=== PATIENT | female | born 1965 | race African-American/Black ===

== ENCOUNTER 2020-06-09 08:24 | Emergency (ER) | payer MEDICARE ==
[~2020-06-09] VITALS: Ht 165.1 cm; Wt 113.4 kg
[2020-06-09] MEDS ORDERED: LISINOPRIL-HCT1 EACH (08:57)
[2020-06-09] MEDS ORDERED: NORVASC10 MG PO (08:58)
[2020-06-09] MEDS ORDERED: METFORMIN HCL500 MG PO (08:58)
[2020-06-09] MEDS ORDERED: ATORVASTATIN CA10 MG PO (08:58)
[2020-06-09] MEDS ORDERED: SINEMET 10-1001 EACH PO (08:58)
[2020-06-09] MEDS ORDERED: PANTOPRAZOLE SO40 MG PO (08:58)
--- NOTE | 2020-06-09 09:16 | Emergency Department Note ---
History of Present Illnes History of Present Illness Chief Complaint: COVID PUI History of Present Illness This is a 54 year old female Chief Complaint Comment Pt states productive cough x one month intermittantly. Pt states covid negative in January. Pt states yellow and "funky green" phlem with cough. Pt was bronchitis in April and was treated with monteiro t[place], zpak, medrol dose pack. Pt states the cough did clear x 2 wks, but continues to come back. No fevers, no sob, states drainage worse at night. Pt aaox4. ambulatory. no acute distress noted at triage time. N on smoker. Pt is on lisinopril for htn. Pt states her last chest xray was in September. . Historian: Patient Arrival Mode: Car Onset (how long ago): day(s) (3) Location: cough throat Quality: cough Radiation: Denies non-radiation, Denies back, Denies neck, Denies extremity, Denies abdomen, Denies periumbilical, Denies flank, Denies proximal, Denies distal, Denies other Severity: mild Onset quality: gradual Duration (how long): day(s) (3) Timing of current episode: intermittent Progression: waxing and waning Context: Denies recent illness, Denies recent surgery, Denies recent immobilization, Denies recent travel, Denies trauma/injury, Denies new medications, Denies hx of DVT/PE, Denies non-compliance w/ medications, Denies other Relieving factors: none Exacerbating factors: none Associated symptoms: Denies denies other symptoms, Denies confusion, Denies chest pain, Denies cough, Denies diaphoresis, Denies fever/chills, Denies headaches, Denies loss of appetite, Denies malaise, Denies nausea/vomiting, Denies rash, Denies seizure, Denies shortness of breath, Denies syncope, Denies weakness, Denies other Treatments prior to arrival: none Past Medical/Family History Physician Review I have reviewed the patient's past medical and family history. Any updates have been documented here. Past Medical History Recent Fever: No Clinical Suspicion of Infectio: Yes New/Unexplained Change in Ment: No Past Medical History: Hypertension, Diabetes, GERD, Hyperlipedemia, DVT/PE Other Medical History: morbid obesity Past Surgical History: Hysterectomy Social History Smoking Cessation: Unknown if ever smoked Counseling Performed: No Alcohol Use: None Physically hurt or threatened: No Other Any Pre-Existing Lines (PICC,: No Review of Systems Review of Systems Constitutional: Reports no symptoms EENTM: Reports no symptoms Cardiovascular: Reports no symptoms Respiratory: Reports as per HPI Gastrointestinal: Reports no symptoms Genitourinary: Reports no symptoms Musculoskeletal: Reports no symptoms Integumentary: Reports no symptoms Neurological: Reports no symptoms Psychological: Reports no symptoms Endocrine: Reports no symptoms Hematological/Lymphatic: Reports no symptoms Physical Exam Related Data Allergies: Coded Allergies: amoxicillin (Verified Allergy, Unknown, 06/09/20) morphine (Verified Allergy, Unknown, 06/09/20) Uncoded Allergies: GREEN COUGH MEDICINE (Allergy, Unknown, 06/09/20) Triage Vital Signs Vital Signs Date Time Temp Pulse Resp B/P (MAP) Pulse Ox O2 Delivery O2 Flow Rate FiO2 06/09/20 08:26 97.6 79 18 168/97 99 Room Air Vital signs reviewed: Yes Physical Exam CONSTITUTIONAL Constitutional: Present well-developed, Present well-nourished HENT HENT: Present normocephalic, Present atraumatic, Present oropharynx katharine r/moist, Present nose normal HENT L/R: Present left ext ear normal, Present right ext ear normal EYES Eyes: Reports PERRL, Reports conjunctivae normal NECK Neck: Present ROM normal PULMONARY Pulmonary: Present effort normal, Present rhonchi CARDIOVASCULAR Cardiovascular: Present regular rhythm, Present heart sounds normal, Present capillary refill normal, Present normal rate GASTROINTESTINAL Abdominal: Present soft, Present nontender, Present bowel sounds normal GENITOURINARY Genitourinary: Present exam deferred SKIN Skin: Present warm, Present dry MUSCULOSKELETAL Musculoskeletal: Present ROM normal NEUROLOGICAL Neurological: Present alert, Present oriented x 3, Present no gross motor or sensory deficits PSYCHOLOGICAL Psychological: Present mood/affect normal, Present judgement normal Results Imaging Imaging results reviewed: Yes Assessment & Plan Medical Decision Making MDM bronchitis reaction to med Reassessment Reassessment better Assessment & Plan Final Impression: (1) Acute bronchitis (2) Dyspnea Depart Disposition: HOME, SELF-CARE Last Vital Signs Date Time Temp Pulse Resp B/P (MAP) Pulse Ox O2 Delivery O2 Flow Rate FiO2 06/09/20 08:26 97.6 79 18 168/97 99 Room Air Home Meds Reported Medications Carbidopa/Levodopa (SINEMET 10-100 MG TABLET) 1 Each Tablet, 1 TAB PO TID, #90 TAB 06/09/20 Metformin Hcl (METFORMIN HCL) 500 Mg Tablet, 500 MG PO BID, #60 TAB 06/09/20 Atorvastatin Calcium (ATORVASTATIN CALCIUM) 10 Mg Tablet, 10 MG PO 2100, #30 TAB 06/09/20 Pantoprazole Sodium* (PROTONIX) 40 Mg Tablet.dr, 40 MG PO, TAB 06/09/20 Amlodipine Besylate (NORVASC) 10 Mg Tab, 10 MG PO DAILY, TAB 06/09/20 Lisinopril/Hydrochlorothiazide (LISINOPRIL-HCTZ 20-12.5 MG TAB) 1 Each Tablet 06/09/20 ELISA LAROSE MD Jun 09, 2020 09:16
[2020-06-09] MEDS ORDERED: METOPROLOL TART50 MG PO (09:20)
[2020-06-09] MEDS ORDERED: CEFDINIR300 MG PO (09:20)
[2020-06-09] MEDS ORDERED: PREDNISONE20 MG PO (09:22)
--- NOTE | 2020-06-09 09:23 | Diagnostic Imaging Report ---
EXAMINATION: CXR 1 VEW - HOPD INDICATION: Cough COMPARISON: None FINDINGS: LINES/TUBES:None LUNGS:The lungs are well-inflated. No focal consolidation or pulmonary edema. PLEURA:No pleural effusion or pneumothorax. MEDIASTINUM:The cardiomediastinal silhouette appears normal in size and shape. BONES/SOFT TISSUES:No acute osseous injury. ABDOMEN:No free air under the diaphragm. IMPRESSION: No focal pneumonia or pulmonary edema. Signed by: Randa Ozuna MD on 06/09/2020 9:20 AM
[2020-06-09] MEDS ORDERED: TESSALON PERLE100 MG PO (09:24)
--- OUTSIDE RECORDS SUMMARY | 2020-06-10 10:17 | XMS REPORT | Clinical Summary ---
Author Author THONG [facility] [employer] [facility] Address Unknown Phone Unavailable Care Team Providers Care Contract Post Office Clerk Name Role Phone Pcp, No PCP Unavailable Allergies Comments Active Allergy Reactions Severity Noted Date Tachycardia and SOB per pt Amoxicillin 06/02/2013 Other reaction(s): Rash Morphine Hives Low 07/25/2012 Shellfish Containing Anaphylaxis High 8 Products [place]eland Anaphylaxis High 08/24/2008 Medications End Date Status Medication Sig Dispensed Refills Start Date Active albuterol HFA (PROVENTIL Inhale 2 0 08/05 HFA) 90 mcg/actuation puffs by 8 inhaler mouth via inhaler. Active amLODIPine (NORVASC) 10 TAKE 1 TABLET 0 MG tablet BY MOUTH 8 DAILY Active atorvastatin (LIPITOR) 20 Take 20 mg by 0 05/25 MG tablet mouth. 8 Active azelastine (OPTIVAR) 0.05 1 drop. 0 07/26 % ophthalmic solution 7 Active buPROPion (WELLBUTRIN XL) Take 150 mg 0 02/23 150 MG 24 hr tablet by mouth. 8 Active carvedilol (COREG) 25 MG Take 1 tablet 0 03/22 tablet by mouth 8 twice a day. Active escitalopram oxalate Take 10 mg by 0 (LEXAPRO) 10 MG tablet mouth. 9 Active esomeprazole (NEXIUM) 40 TAKE 1 0 03/22 MG capsule CAPSULE BY 8 MOUTH EVERY MORNING (BEFORE BREAKFAST). Active gabapentin (NEURONTIN) Take 400 mg 0 01 400 MG capsule by mouth. 8 Active hydroCHLOROthiazide 12.5 mg = 1 0 (HYDRODIURIL) 12.5 MG tab, PO, 8 tablet Daily, 0 Refill(s) Active HYDROcodone-homatropine Take 2.5 mLs 0 (HYDROMET) 5-1.5 mg/5 mL by mouth. 8 syrup Active lisinopril (PRINIVIL) 20 Take 40 mg by 0 03/22 MG tablet mouth. 8 Active metFORMIN (GLUCOPHAGE XR) Take 500 mg 0 02/22 500 MG 24 hr tablet by mouth. 8 Active nitroglycerin (NITROSTAT) Place 0.4 mg 0 0.4 MG SL tablet under the 2 tongue. 03/17/2021 Active fluticasone propionate 1 spray by 15.8 mL 0 (FLONASE) 50 Nasal route 0 mcg/actuation nasal spray daily. Active ibuprofen (ADVIL,MOTRIN) Take 1 tablet 20 tablet 0 600 MG tablet (600 mg 0 total) by mouth every 6 (six) hours as needed for Pain for up to 20 doses. 03/22/2020 AZITHROmycin (ZITHROMAX) Take 1 tablet 6 tablet 0 250 MG tablet (250 mg 0 total) by mouth daily for 5 days Take first 2 tablets together, then 1 every day until finished.. Active Problems Not on file Encounters Care Team Description Date Type Specialty Nikhil Carpio MD Acute otalgia, bilateral (Primary Dx); Acute sinusitis, recurrence not specified, unspecified location 03/17/2020 Emergency Emergency Medicine 03/17/2020 Travel after 06/09/2019 Social History Date Tobacco Use Types Packs/Day Years Used Never Smoker Smokeless Tobacco: Never Used Alcohol Use Drinks/Week oz/Week Comments No Alcohol Habits Answer Date Recorded How often do you have a drink containing alcohol? Never 10/22/2018 How many drinks containing alcohol do you have on No t asked a typical day when you are drinking? How often do you have six or more drinks on one Not asked occasion? Sex Assigned at Date Recorded Not on file Industry Job Start Date Occupation Not on file Not on file Not on file Travel End Travel History Travel Start No recent travel history available. Last Filed Vital Signs Time Taken Vital Sign Reading 03/17/2020 11:50 AM CDT Blood Pressure 142/80 03/17/2020 11:50 AM CDT Pulse 82 03/17/2020 11:50 AM CDT Temperature 36.5 C (97.7 F) 03/17/2020 11:50 AM CDT Respiratory Rate 20 03/17/2020 11:50 AM CDT Oxygen Saturation 97% - Inhaled Oxygen - Concentration 03/17/2020 11:50 AM CDT Weight 131.5 kg (290 lb) 03/17/2020 11:50 AM CDT Height 162.6 cm (5' 4") 03/17/2020 11:50 AM CDT Body Mass Index 49.78 Plan of Treatment Not on file Results Not on fileafter 06/09/2019 Insurance Payer Benefit Subscriber ID Type Phone Address Plan / Group [facility] xxxxxxxxx MEDICARE MGD CARE MEDICARE HMO MEDICAID [place]ICAID xxxxxxxxx [place] [id number]
--- OUTSIDE RECORDS SUMMARY | 2020-06-10 10:17 | XMS REPORT | Continuity of Care Document ---
Author Author Bradley Metz [employer] Padmini, GEMINI [employer] Address Unknown Phone Unavailable Care Team Providers Care Sales Counselor Name Role Phone [facility] [employer] Unavailable Un available Problems Problem Status Onset Date Classification Date Reported Comments Source CHEST PAIN Active 03/22/2018 [facility] Discharge Diagnosis: Cough 08/18/2016 08/21/2016 [facility] SOB Active 1 10/18/2015 [facility] HYPERTENSIVE URGENCY Active 03/16/2012 [facility] CHEST PAIN/RIGHT SIDED NECK PAIN Active 11/28/2011 [facility] VOMITING Active 06/22/2011 [facility] Chest pain Inactive Problem 03/19/2012 [facility] Chest pain, unspecified 03/28/2018 [facility] Abdominal pain (finding) Active Problem 03/28/2018 [facility] Chest pain (finding) Active Problem 03/28/2018 [facility] Headache (finding) Active Problem 03/28/2018 [facility] Nausea and vomiting (disorder) Active Problem 02/2018 [facility] Peptic ulcer (disorder) Active Problem 03/28/2018 [facility] Abdominal pain Active Problem 03/19/2012 [facility] Headache Active Problem 03/19/2012 [facility] Nausea and vomiting Active Problem 03/19/2012 [facility] CHEST PAIN NOS Active [facility] HYPERTENSION NOS Active [facility] CHEST PAIN, UNSPECIFIED Active [facility] Medications Medication Details Route Status Patient Instructions Ordering Provider Order Date Source Tylenol Notes: Do not exceed 4 gm/day. (Same as: Tylenol) Inactive 03/25/2018 [facility] atorvastatin 80 mg oral tablet 80 mg = 1 tab, PO, Bedtime, # 30 tab, 0 Refill(s), Pharmacy: [id number] Active 03/25/2018 [facility] atorvastatin 80 mg oral tablet 80 mg = 1 tab, PO, Bedtime, 0 Refill(s) Inactive 03/25/2018 [facility] Sodium Chloride 0.9% IV 1,000 mL 1,000 mL, Rate: 100 ml/hr, Infuse over: 10 hr, Route: IVPB, Dosing Weight 129.545 kg, Total Volume: 1,000, Start date: 03/24/18 22:41:00 CDT, Duration: 30 day, Stop date: 04/23/18 22:40:00 CDT, 2.47, m2 No Longer Active 03/25/2018 [facility] Nitroglycerin Notes: (Same as: Nitroquick, Nitrostat) "Do Not Crush" Sublingual tablet No Longer Active 03/25/2018 [facility] remove patch Notes: Remove fro m 9 pm to 9 am daily for 12 hour nitrate free period. (Verify Patient has not taken Viagra, Cialis or Levitra in last 24 hours; if taken, hold NTG and notify MD.) Inactive 03/24/2018 [facility] Dextrose 50% Syringe 25 gm, 50 mL, Route: IVP, Drug Form: INJ, Dosing Weight 129.545, kg, PRN, PRN Blood Glucose Results, Start date: 03/24/18 13:01:00 CDT, Duration: 30 day, Stop date: 04/23/18 13:00:00 CDT No Longer Active 03/24/2018 [facility] Glucagon 1 mg, Route: IM, Drug form: PDR/INJ, PRN, Dosing Weight 129.545, kg, PRN Blood Glucose Results, Start date: 03/24/18 13:01:00 CDT, Duration: 30 day, Stop date: 04/23/18 13:00:00 CDT No Longer Active 03/24/2018 [facility] Insulin Lispro Notes: (Same as : Humalog ) Roll in palms of hands gently; Do not shake `vigorously. "Single Patient Use Only " WASTE: F/P - Black; E - Municipal Trash Bin Stable for 28 days at room temp erature. Expires in days from Date No Longer Active 03/24/2018 [facility] Prednisone Notes: Take with fo od. No Longer Active 03/24/2018 [facility] Diphenhydramine Notes: (Same a s: Benadryl) Inactive 03/24/2018 [facility] methylPREDNISolone SODium SUCCinate Notes: (Same as:Solu-MEDROL, A-Methapred) Inactive 03/24/2018 [facility] Famotidine Notes: (Same as: Pe pcid) Can be dilute in 5- 10cc NS IVP: Slow IV push over at least 2 minutes. Inactive 03/24/2018 [facility] quetiapine Notes: (Same as: SE ROquel) No Longer Active 03/24/2018 [facility] Lipitor Notes: Same as Lipitor Inactive 03/24/2018 [facility] remove patch 1 patch, Route: T OP, Drug form: ERFILM, Daily, Start date: 03/23/18 18:00:00 CDT, Duration: 30 day, Stop date: 04/21/18 18:00:00 CDT No Longer Active 03/23/2018 [facility] Lorazepam 0.5 mg, PO, Bedtime, 0 Refill(s) Active 03/23/2018 [facility] hydrochlorothiazide 12.5 mg oral tablet 12.5 mg = 1 tab, PO, Daily, 0 Refill(s) Active 03/23/2018 [facility] heparin 25,000 unit [12 unit/kg/hr] + Pr emix Diluent Sodium Chloride 0.45% 500 mL 500 mL, Rate: 20.31 ml/hr, Infuse over: 24.6 hr, Route: IV, Dosing Weight 84.64 kg, Total Volume: 500, Start date: 03/23/18 15:36:00 CDT, Stop date: 04/22/18 15:35:00 CDT, 1.98, m2 No Longer Active 03/23/2018 [facility] NS 1,000 mL 1,000 mL, Rate: 75 ml/hr, Infuse over: 13.3 hr, Route: IV, Dosing Weight 129.545 kg, Total Volume: 1,000, Start date: 03/23/18 15:26:00 CDT, Duration: 30 day, Stop date: 04/22/18 15:25:00 CDT, 2.47, m2 No Longer Active 03/23/2018 [facility] Heparin 30 unit/kg Bolus (Heparin Dosing Weight) Route: IVP, PRN, 2,500 unit, 2.5 mL, Drug form: INJ, PRN, Heparin Protocol, Start date: 03/23/18 15:21:00 CDT Stop date: 04/22/18 15:20:00 CDT, 30 day No Longer Active 03/23/2018 [facility] heparin additive 25,000 unit [12 unit/kg /hr] + Premix Diluent Dextrose 5% 500 mL 500 mL, Rate: 31.09 ml/hr, Infuse over: 16.1 hr, Route: IV, Dosing Weight 129.545 kg, Total Volume: 500 mL, Start date: 03/23/18 15:21:00 CDT, Duration: 30 day, Stop date: 04/22/18 15:20:00 CDT, 2.47, m2 Inactive 03/23/2018 [facility] Heparin - one time bolus for ACS 4,000 unit, 4 mL, Route: IVP, Drug form: INJ, ONCE, Dosing Weight 129.545, kg, Priority: STAT, Start date: 03/23/18 15:21:00 CDT, Stop date: 03/23/18 15:21:00 CDT Inactive 03/23/2018 [facility] Heparin 60 unit/kg Bolus (Heparin Dosing Weight) Route: IVP, PRN, 5,000 unit, 5 mL, Drug form: INJ, PRN, Heparin Protocol, Start date: 03/23/18 15:21:00 CDT Stop date: 04/22/18 15:20:00 CDT, 30 day No Longer Active 03/23/2018 [facility] Dilaudid Notes: Same as Dilaud id Inactive 03/23/2018 [facility] Dilaudid Notes: Same as Dilaud id Inactive 03/23/2018 [facility] Plavix 75 mg, Route: PO, Drug form: TAB, Daily, Dosing Weight 114.545, kg, Start date: 03/23/18 9:00:00 CDT, Duration: 30 day, Stop date: 04/21/18 9:00:00 CDT Inactive 03/23/2018 [facility] Bupropion Notes: (Do not crush ) (Same As: Wellbutrin SR) No Longer Active 03/23/2018 [facility] Saline Flush 0.9% Notes: (Same as: BD Posiflush) No Longer Active 03/23/2018 [facility] Lisinopril 5 mg, Route: PO, Dr ug form: TAB, Daily, Dosing Weight 114.545, kg, Start date: 03/23/18 9:00:00 CDT, Duration: 30 day, Stop date: 04/21/18 9:00:00 CDT No Longer Active 03/23/2018 [facility] Aspirin 81 MG Enteric Coated Tablet Notes: Do not crush or chew. (Same As: Ecotrin) No Longer Active 03/23/2018 [facility] Protonix Notes: Tablet should not be chewed or crushed. (Same as: Protonix) Inactive 03/23/2018 [facility] 24 HR Nitroglycerin 0.1 MG/HR Transderma l Patch [Nitro-Dur] 12.9545 mg, Route: TOP, Drug form: ERFIL M, Daily, Dosing Weight 129.545, kg, Start date: 03/23/18 9:00:00 CDT, Duration: 30 day, Stop date: 04/21/18 9:00:00 CDT Inactive 03/23/2018 [facility] Isosorbide Notes: (Same as:Imd ur) "Do Not Crush" Take on empty stomach/ full glass of water. Do not crush No Longer Active 03/23/2018 [facility] Esomeprazole 40 mg, Route: PO, Drug form: ECCAP, Daily, Dosing Weight 114.545, kg, Start date: 03/23/18 9:00:00 CDT, Duration: 30 day, Stop date: 04/21/18 9:00:00 CDT No Longer Active 03/23/2018 [facility] carvedilol Notes: Give with fo od. (Same As: Coreg) No Longer Active 03/23/2018 [facility] iodixanol Notes: (Same as: Vis ipaque). WASTE: F/P - Black; E - Municipal Trash Bin Inactive 03/23/2018 [facility] Iohexol Notes: (same as:Omnipa que 350). WASTE: F/P - Black; E - Municipal Trash Bin Inactive 03/23/2018 [facility] 24 HR Nitroglycerin 0.1 MG/HR Transderma l Patch [Nitro-Dur] 1 patch, Route: TOP, Drug form: ERFILM, Daily, Dosing Weight 129.545, kg, Priority: STAT, Start date: 03/23/18 5:37:00 CDT, Stop date: 04/21/18 6:00:00 CDT No Longer Active 03/23/2018 [facility] Dilaudid Notes: Same as Dilaud id Inactive 03/23/2018 [facility] Protonix Notes: Tablet should not be chewed or crushed. (Same as: Protonix) No Longer Active 03/23/2018 [facility] Potassium Chloride Notes: (Ramiro e as: K-Dur 20) "Do Not Crush" For patients unable to swallow tablet, dissolve in one half glass of water. Allow about 2 minutes for the tablets to disintegrate. Stir before giving to prepare slurry and administer. Please exclude Patients with feeding tube less than 14 Cambodian (Dobhoff, J-tube etc) and pediatric and patients. With food and full glass of water Inactive 03/23/2018 [facility] Plavix Notes: (Same As: Plavix) No Longer Active 03/23/2018 [facility] Lipitor Notes: Same as Lipitor No Longer Active 03/23/2018 [facility] Dilaudid Notes: Same as Dilaud id Inactive 03/23/2018 [facility] Lovenox Notes: (Same as: Loven ox) No Longer Active 03/23/2018 [facility] amLODIPine 10 mg oral tablet T JAMES 1 TABLET BY MOUTH DAILY Active 03/23/2018 [facility] buPROPion 150 mg/24 hours (XL) oral tabl et, extended release TAKE 1 TABLET BY MOUTH EVERY DAY IN THE MORNING Active 03/23/2018 [facility] carvedilol 25 mg oral tablet T JAMES 1 TABLET BY MOUTH TWICE A DAY. Active 03/23/2018 [facility] Esomeprazole 40 MG Enteric Coated Capsule TAKE 1 CAPSULE BY MOUTH EVERY MORNING (BEFORE BREAKFAST). Active 03/23/2018 [facility] isosorbide mononitrate 60 mg oral tablet , extended release TAKE 1 AND 1/2 TABLETS BY MOUTH ONCE A DAY. Active 03/23/2018 [facility] lisinopril 20 mg oral tablet T JAMES 2 TABLETS BY MOUTH DAILY. Active 03/23/2018 [facility] metFORMIN 500 mg oral tablet, extended release TAKE 1 TABLET BY MOUTH DAILY (WITH BREAKFAST). Active 03/23/2018 [facility] QUEtiapine 25 mg oral tablet T JAMES 2 TABLETS BY MOUTH AT BEDTIME No Longer Active 03/23/2018 [facility] Saline Flush 0.9% Notes: (Same as: BD Posiflush) No Longer Active 03/23/2018 [facility] Nitroglycerin Notes: (Same as: Nitroquick, Nitrostat) "Do Not Crush" Sublingual tablet No Longer Active 03/23/2018 [facility] Ondansetron Notes: (Same as: Vaibhav boyd) No Longer Active 03/23/2018 [facility] Zofran Notes: (Same as: Zofran ) MEDICATION WASTE Product Size: 4 mg Product Wasted: 0 mg Inactive 03/23/2018 [facility] Hydromorphone Notes: Same as D ilaudid Inactive 03/23/2018 [facility] Aspirin Notes: Take with food. Inactive 03/23/2018 [facility] Ondansetron 4 mg, Route: IVP, Drug form: INJ, ONCE, Dosing Weight 114.545, kg, Priority: STAT, Start date: 08/18/16 18:30:00 SERVICE NOW DEVELOPER, Stop date: 08/18/16 18:30:00 SERVICE NOW DEVELOPER Inactive 08/19/2016 [facility] Azithromycin 5 Day Dose Pack 250 mg oral tablet See Instructions, Take 2 tablets by mouth the first day then 1 tablet by mouth days 2-5., X 5 day, # 6 tab, 0 Refill(s) Active 08/19/2016 [facility] 200 ACTUAT Albuterol 0.09 MG/ACTUAT Mete red Dose Inhaler 2 puff, INHALATION, QID, # 34 gm, 0 Refill(s) Active 08/19/2016 [facility] Azithromycin Notes: Take 1 magan r before or 2 hours after meals. (Same As: Zithromax) Inactive 08/18/2016 [facility] 200 ACTUAT Albuterol 0.09 MG/ACTUAT Mete red Dose Inhaler Notes: (Same as: Yamileth) WASTE: Aero fernando - Return to Pharmacy Inactive 08/18/2016 [facility] Prednisone Notes: Take with fo od. Inactive 08/18/2016 [facility] Ketorolac 30 mg, Route: IVP, D rug form: INJ, ONCE, Dosing Weight 114.545, kg, Priority: STAT, Start date: 08/18/16 15:48:00 SERVICE NOW DEVELOPER, Stop date: 08/18/16 15:48:00 SERVICE NOW DEVELOPER Inactive 08/18/2016 [facility] Ondansetron 4 mg, Route: IVP, Drug form: INJ, ONCE, Dosing Weight 114.545, kg, Priority: STAT, Start date: 08/18/16 15:48:00 SERVICE NOW DEVELOPER, Stop date: 08/18/16 15:48:00 SERVICE NOW DEVELOPER Inactive 08/18/2016 [facility] Albuterol 0.833 MG/ML / Ipratropium Brom drea 0.167 MG/ML Inhalant Solution [DuoNeb] Notes: (Same as: Duoneb) Inactive 08/18/2016 [facility] Sodium Chloride 0.154 MEQ/ML Injectable Solution 1,000 mL, 2,000 ml/hr, Infuse Over: 30 minutes, Route: IV, 1,000, Drug form: INJ, ONCE, Priority: STAT, Dosing Weight 114.545 kg, Start date: 08/18/16 14:25:00 SERVICE NOW DEVELOPER, Duration: 1 doses or times, Stop date: 08/18/16 14:25:00 SERVICE NOW DEVELOPER Inactive 08/18/2016 [facility] Ibuprofen Notes: (Same as: Mot rin) "Do Not Crush" Take with food. Inactive 08/18/2016 [facility] pantoprazole 40 mg, 1 tab, Rou te: PO, Drug form: ECTAB, Before Dinner, Start date: 03/17/12 16:30:00, Duration: 30 day, Stop date: 04/15/12 16:30:00 PO No Longer Active [facility] 03/17/2012 [facility] acetaminophen-hydrocodone 325 mg-5 mg oral tablet 1 tab, PO, Q6H, PRN, 20 tab, Pain Score 1-3, Substitution Allowed, Maintenance, TAB PO Active [facility] 03/17/2012 [facility] ondansetron 4 mg, 2 mL, Route: IVP, Drug form: INJ, Q4H, PRN Nausea & Vomiting, Start date: 03/17/12 13:42:00, Stop date: 04/16/12 13:41:00 IVP No Longer Active [facility] 03/17/2012 [facility] Maalox 10 mL, Route: PO, Drug Form: SUSP, Q4H, PRN as needed for indigestion, Start date: 03/17/12 13:41:00, Duration: 30 day, Stop date: 04/16/12 13:40:00 PO No Longer Active [facility] 03/17/2012 [facility] Zofran ODT 4 mg oral tablet, disintegrating 4 mg, 1 tab, PO, BID, PRN, 10 tab, Nausea and Vomiting, Substitution Allowed, Dissolve tab under tongueDissolve tab under tongue PO Active [facility] 03/17/2012 [facility] furosemide 20 mg oral tablet 2 0 mg, 1 tab, PO, Daily, 30 tab, Substitution Allowed, TAB PO Active [facility] 03/17/2012 [facility] lisinopril 20 mg oral tablet 2 0 mg, 1 tab, PO, Daily, 30 tab, Substitution Allowed, TAB PO Active [facility] 03/17/2012 [facility] Protonix 40 mg oral enteric coated tablet 40 mg, 1 tab, PO, Daily, 30 tab, Substitution Allowed, ECTAB PO Active [facility] 03/17/2012 [facility] metoprolol 50 mg oral tablet 5 0 mg, 1 tab, PO, BID, 60 tab, Substitution Allowed, TAB PO Active [facility] 03/17/2012 [facility] pantoprazole 40 mg, 1 tab, Rou te: PO, Drug form: ECTAB, Daily, first dose today please, Start date: 03/17/12 10:00:00, Duration: 30 day, Stop date: 04/16/12 9:00:00 PO No Longer Active [facility] 03/17/2012 [facility] GI cocktail 30 ml, Route: PO, Drug Form: SUSP, ONCE, Routine, Start date: 03/17/12 9:54:00, Stop date: 03/17/12 9:54:00 PO No Longer Active [facility] 03/17/2012 [facility] furosemide 20 mg oral tablet 2 0 mg, 1 tab, Route: PO, Drug form: TAB, Daily, Start date: 03/17/12 9:00:00, Duration: 30 day, Stop date: 04/15/12 9:00:00 PO No Longer Active [facility] 03/17/2012 [facility] hydrALAZINE 50 mg, 1 tab, Rout e: PO, Drug form: TAB, TID, Start date: 03/17/12 9:00:00, Duration: 30 day, Stop date: 04/15/12 17:00:00 PO No Longer Active [facility] 03/17/2012 [facility] metoprolol tartrate 50 mg, 1 t ab, Route: PO, Drug form: TAB, Q12H, Start date: 03/17/12 9:00:00, Duration: 30 day, Stop date: 04/15/12 21:00:00 PO No Longer Active [facility] 03/17/2012 [facility] Senokot S oral tablet 2 tab, R oute: PO, Drug Form: TAB, BID, Start date: 03/17/12 9:00:00, Duration: 30 day, Stop date: 04/15/12 17:00:00 PO No Longer Active [facility] 03/17/2012 [facility] lisinopril 20 mg, 1 tab, Route : PO, Drug form: TAB, Daily, Start date: 03/17/12 9:00:00, Duration: 30 day, Stop date: 04/15/12 9:00:00 PO No Longer Active [facility] 03/17/2012 [facility] Dilaudid 1 mg, 0.5 mL, Route: IV, Drug form: INJ, Q4H, PRN Pain, Start date: 03/17/12 1:45:00, Duration: 30 day, Stop date: 04/16/12 1:44:00, pain 7 - 9 IV No Longer Active [facility] 03/17/2012 [facility] acetaminophen 650 mg, 2 tab, R oute: PO, Drug form: TAB, Q4H, PRN Pain/Fever, Start date: 03/17/12 1:36:00, Duration: 30 day, Stop date: 04/16/12 1:35:00 PO No Longer Active [facility] 03/17/2012 [facility] acetaminophen-hydrocodone 325 mg-5 mg oral tablet 1 tab, Route: PO, Drug Form: TAB, Q4H, PRN Pain Score 1-3, Start date: 03/17/12 1:36:00, Duration: 30 day, Stop date: 04/16/12 1:35:00 PO No Longer Active [facility] 03/17/2012 [facility] ondansetron 4 mg, 2 mL, Route: IVP, Drug form: INJ, Q6H, PRN Nausea & Vomiting, Start date: 03/17/12 1:36:00, Duration: 30 day, Stop date: 04/16/12 1:35:00 IVP No Longer Active [facility] 03/17/2012 [facility] nitroglycerin 2% topical ointment 1 inch, Route: TOP, ONCE, STAT, Start date: 03/16/12 18:58:00, Stop date: 03/16/12 18:58:00 TOP No Longer Active [facility] 03/16 [facility] Dilaudid 1 mg, 0.5 mL, Route: IV, Drug form: INJ, ONCE, Start date: 03/16/12 18:13:00, Stop date: 03/16/12 18:13:00 IV No Longer Active [facility] 03/16/2012 [facility] nitroglycerin 0.4 mg, 1 tab, R oute: SL, Drug form: TAB, Q5Min, PRN Chest Pain, Priority: STAT, Start date: 03/16/12 17:49:00, Duration: 3 doses or times, Stop date: Limited # of times SL No Longer Active [facility] 03/16/2012 [facility] enalapril 40 mg, 2 tab, Route: PO, Drug form: TAB, ONCE, Start date: 03/16/12 17:46:00, Stop date: 03/16/12 17:46:00 PO No Longer Active [facility] 03/16/2012 [facility] hydrALAZINE 50 mg oral tablet 100 mg, 2 tab, Route: PO, Drug form: TAB, ONCE, Start date: 03/16/12 17:46:00, Stop date: 03/16/12 17:46:00 PO No Longer Active [facility] 03/16/2012 [facility] Benadryl 25 mg, 0.5 mL, Route: IVP, Drug form: INJ, ONCE, Priority: STAT, Start date: 03/16/12 17:29:00, Stop date: 03/16/12 17:29:00 IVP No Longer Active [facility] 03/16/2012 [facility] Cardene 40 mg in NS 200 ml IV 40 mg 40 mg, 200 mL, Rate: Titrate to MAP of 120, Route: IV, Total Volume: 200 mL, Duration: 30 day, Stop date: 04/15/12 16:22:00, Replace Every: 24 hr IV No Longer Active [facility] 03/16/2012 [facility] Dilaudid 1 mg, 0.5 mL, Route: IV, Drug form: INJ, ONCE, Start date: 03/16/12 16:22:00, Stop date: 03/16/12 16:22:00 IV No Longer Active [facility] 03/16/2012 [facility] metoprolol tartrate 50 mg, 1 t ab, Route: PO, Drug form: TAB, ONCE, Priority: STAT, Start date: 03/16/12 16:21:00, Stop date: 03/16/12 16:21:00 PO No Longer Active [facility] 03/16/2012 [facility] clonidine 0.1 mg, 1 tab, Route : PO, Drug form: TAB, ONCE, Priority: STAT, Start date: 03/16/12 16:21:00, Stop date: 03/16/12 16:21:00 PO No Longer Active [facility] 03/16/2012 [facility] Zofran 4 mg, 2 mL, Route: IVP, Drug form: INJ, ONCE, Priority: STAT, Start date: 03/16/12 16:21:00, Stop date: 03/16/12 16:21:00 IVP No Longer Active [facility] 03/16 [facility] Toradol 10 mg oral tablet 10 m g, 1 tab, Route: PO, Drug form: TAB, Q6H, PRN Pain, Start date: 11/29/11 9:16:00, Duration: 2 day, Stop date: 12/01/11 9:15:00 PO No Longer Active [facility] 11/29/2011 [facility] hydrALAZINE 50 mg oral tablet 50 mg, 2 tab, Route: PO, Drug form: TAB, TID, Start date: 11/29/11 9:00:00, Duration: 30 day, Stop date: 12/28/11 17:00:00 PO No Longer Active [facility] 11/29/2011 [facility] enalapril 20 mg, 1 tab, Route: PO, Drug form: TAB, Daily, Start date: 11/29/11 9:00:00, Duration: 30 day, Stop date: 12/28/11 9:00:00 PO No Longer Active [facility] 11/29/2011 [facility] Protonix 40 mg, 1 tab, Route: PO, Drug form: ECTAB, BID, Start date: 11/29/11 9:00:00, Duration: 30 day, Stop date: 12/28/11 17:00:00 PO No Longer Active [facility] 11/28 [facility] Lasix 20 mg, 1 tab, Route: PO, Drug form: TAB, Daily, Start date: 11/29/11 9:00:00, Duration: 30 day, Stop date: 12/28/11 9:00:00 PO No Longer Active [facility] 11/28 [facility] metoprolol 50 mg, PO, BID, Sub stitution Allowed PO Active 11/29/2011 [facility] hydrALAZINE 50 mg, PO, TID, Hogan bstitution Allowed PO Active 11/29/2011 [facility] furosemide 20 mg oral tablet P O, Daily, Substitution Allowed PO Active 11/29/2011 [facility] enalapril 20 mg oral tablet 40 mg, 2 tab, PO, Daily, Substitution Allowed PO No Longer Active 11/29/2011 [facility] clonidine 0.1 mg oral tablet 0 .1 mg, 1 tab, PO, TID, Substitution Allowed PO Active 11/29/2011 [facility] Bactrim DS 1 tablet, PO, Q12H, Substitution Allowed, Maintenance PO No Longer Active 11/29/2011 [facility] pantoprazole 40 mg, PO, Daily, 30 tab, Substitution Allowed, bidbid PO Active 11/29/2011 [facility] Tylenol 650 mg, 2 tab, Route: PO, Drug form: TAB, Q4H, PRN Pain, Start date: 11/29/11 1:21:00, Duration: 30 day, Stop date: 12/29/11 1:20:00 PO No Longer Active Neyou 11/29/2011 [facility] clonidine 0.1 mg oral tablet 0 .1 mg, 1 tab, Route: PO, Drug form: TAB, TID, Start date: 11/29/11 0:00:00, Duration: 30 day, Stop date: 12/28/11 16:00:00 PO No Longer Active Neyou 11/29/2011 [facility] nter nitroglycerin 2% ointment 0.5 inch, Route: TOP, Drug Form: OINT, Q6H, Start date: 11/29/11 0:00:00, Duration: 30 day, Stop date: 12/28/11 18:00:00 TOP No Longer Active [place] 11/29/2011 [facility]ter metoprolol 50 mg, 1 tab, Route : PO, Drug form: TAB, Q12H, Start date: 11/28/11 21:00:00, Duration: 30 day, Stop date: 12/28/11 9:00:00 PO No Longer Active Neyou 11/29/2011 [facility] morphine Sulfate 2 mg, Route: IVP, ONCE, PRN Pain, Start date: 11/28/11 20:43:00, Stop date: 12/28/11 19:42:00 IVP No Longer Active Maria 11/29/2011 [facility] Bactrim DS 1 tab, Route: PO, D rug Form: TAB, [id number], Start date: 11/28/11 20:00:00, Duration: 1 day, Stop date: 11/29/11 8:00:00 PO No Longer Active Neyou 11/28 [facility] Phenergan 25 mg, 1 tab, Route: PO, Drug form: TAB, Q4H, PRN Allergic reaction, Start date: 11/28/11 19:55:00, Duration: 30 day, Stop date: 12/28/11 19:54:00 PO No Longer Active Neyou 11/29/2011 [facility] clonidine 0.1 mg, 1 tab, Route : PO, Drug form: TAB, ONCE, Priority: STAT, Start date: 11/28/11 18:34:00, Stop date: 11/28/11 18:34:00 PO No Longer Active [facility] 11/29/2011 [facility] hydrALAZINE 50 mg oral tablet 50 mg, 2 tab, Route: PO, Drug form: TAB, ONCE, Start date: 11/28/11 18:34:00, Stop date: 11/28/11 18:34:00 PO No Longer Active [facility] 11/29/2011 [facility] metoprolol 100 mg, 2 tab, Rout e: PO, Drug form: TAB, ONCE, Start date: 11/28/11 18:34:00, Stop date: 11/28/11 18:34:00 PO No Longer Active [facility] 11/29/2011 [facility] diphenhydrAMINE 25 mg, Route: IVP, ONCE, Priority: STAT, Start date: 11/28/11 17:32:00, Stop date: 11/28/11 17:32:00 IVP No Longer Active 11/28/2011 [facility] Benadryl 25 mg, Route: IVP, ON CE, Priority: STAT, Start date: 11/28/11 17:30:00, Stop date: 11/28/11 17:30:00 IVP No Longer Active 11/28/2011 [facility] ondansetron 4 mg, Route: IVP, Drug form: INJ, ONCE, Priority: STAT, Start date: 11/28/11 17:12:00, Stop date: 11/28/11 17:12:00 IVP No Longer Active 11/28/[address] [place] [address] morphine Sulfate 4 mg, Route: IVP, ONCE, Priority: STAT, Start date: 11/28/11 17:12:00, Stop date: 11/28/11 17:12:00 IVP No Longer Active 11/28/2011 [facility] nitroglycerin 0.4 mg, 1 tab, R oute: SL, Drug form: TAB, Q5Min, PRN Chest Pain, (Hold if SBP < = 90 mmHg or if < = 100mmHg with symptomatic dizziness), Start date: 11/28/11 15:18:00, Duration: 3 doses or times, Stop date: 12/28/11 15:17:00 SL No Longer Active Vu 11/28/2011 [facility] aspirin 325 mg tablet 325 mg, 1 tab, Route: PO, Drug form: TAB, ONCE, Priority: STAT, Start date: 11/28/11 15:18:00, Stop date: 11/28/11 15:18:00 PO No Longer Active Vu 11/28/2011 [facility] Vicodin 5/500 oral tablet 1 ta b, PO, Q4H, PRN, 15 tab, for pain, Substitution Allowed, Maintenance, TAB PO Active Maria 06/23/2011 [facility] hydromorphone 1 mg, Route: IVP , ONCE, Priority: STAT, Start date: 06/22/11 18:30:00, Stop date: 06/22/11 18:30:00 IVP No Longer Active Gabriel 06/22/2011 [facility] Reglan 10 mg, 2 mL, Route: IV, Drug form: INJ, ONCE, Start date: 06/22/11 18:22:00, Stop date: 06/22/11 18:22:00 IV No Longer Active Maxsukhdev 06/22/2011 [facility] GI cocktail 40 mL, Route: PO, Drug Form: SUSP, ONCE, STAT, Start date: 06/22/11 18:22:00, Stop date: 06/22/11 18:22:00 PO No Longer Active Akmitul 06/22/2011 [facility] hydrALAZINE 10 mg, 0.5 mL, Rou te: IVP, Drug form: INJ, ONCE, Priority: STAT, Start date: 06/22/11 18:21:00, Stop date: 06/22/11 18:21:00 IVP Active [place] [facility] Dilaudid 0.5 mg, 0.25 mL, Rout e: IV, Drug form: INJ, ONCE, Priority: STAT, Start date: 06/22/11 17:01:00, Stop date: 06/22/11 17:01:00 IV No Longer Active Aksukhdev 06/22/2011 [facility] Sodium Chloride 0.9% (Bolus) IV 1,000 mL 1,000 mL, Rate: 1,000 ml/hr, Infuse over: 1 hr, Route: IV, Total Volume: 1,000, Bolus Dose, Priority: STAT, Start date: 06/22/11 14:19:00, Duration: 1 doses or times, Stop date: 06/22/11 15:18:00 IV No Longer Active [facility] 06/22/2011 [facility] Dilaudid 1 mg, 0.5 mL, Route: IV, Drug form: INJ, ONCE, Priority: STAT, Start date: 06/22/11 14:19:00, Stop date: 06/22/11 14:19:00 IV No Longer Active [facility] ondansetron 8 mg, 4 mL, Route: IVP, Drug form: INJ, ONCE, Priority: STAT, Start date: 06/22/11 14:19:00, Stop date: 06/22/11 14:19:00 IVP No Longer Active [facility] 06/22/2011 [facility] morphine Sulfate 8 mg, Route: IVP, ONCE, Priority: STAT, Start date: 06/22/11 14:18:00, Stop date: 06/22/11 14:18:00 IVP No Longer Active [facility] 06/22/2011 [facility] Allergies, Adverse Reactions, Alerts Substance Category Reaction Severity Reaction type Status Date Reported Comments Source morphine Assertion hives Mild Drug allergy Active 11/22/2011 [facility] amoxicillin Assertion Drug allergy Active [facility] Food Shellfish Assertion Drug allergy Active [facility] Food Strawberries Assertion Drug allergy Active [facility] Immunizations No Data Provided for This Section Results Order Name Results Value Reference Range Date Interpretation Comments Source HEMATOLOGY PTT 63.5 22.9 - 35.8 03/24/2018 [facility] CHEM PANEL eGFR 101 03/24/2018 Result Comment: The eGFR is calculated using the CKD-EPI formula. In most young, healthy individuals the eGFR will be >90 mL/min/1.73m2. The eGFR declines with age. An eGFR of 60-89 may be normal in some populations, particularly the elderly, for whom the CKD-EPI formula has not been extensively validated. Use of the eGFR is not recommended in the following populations:

Individuals with unstable creatinine concentrations, including patients and those with serious co-morbid conditions.

Patients with extremes in muscle mass or diet.

The data above are obtained from the National Kidney Disease Education Program (NKDEP) which additionally recommends that when the eGFR is used in patients with extremes of body mass index for purposes of drug dosing, the eGFR should be multiplied by the estimated BMI. [facility] CHEM PANEL B/C Ratio 19 6 - 25 03/24/2018 [facility] CHEM PANEL Globulin 4.2 2.7 - 4.2 03/24/2018 [facility] CHEM PANEL A/G Ratio 0.7 0.7 - 1.6 03/24/2018 [facility] CHEM PANEL Bili Total 0.4 0.2 - 1.3 03/24/2018 [facility] CHEM PANEL AGAP 11.9 10.0 - 20.0 03/24/2018 [facility] CHEM PANEL Alk Phos 106 39 - 136 03/24/2018 [facility] CHEM PANEL ALT 25 0 - 65 03/24/2018 [facility] CHEM PANEL AST 14 0 - 37 03/24/2018 [facility] CHEM PANEL BUN 15 7 - 22 03/24/2018 [facility] CHEM PANEL Glucose Lvl 119 70 - 99 03/24/2018 [facility] CHEM PANEL Creatinine Lvl 0.77 0.50 - 1.40 03/24/2018 [facility] CHEM PANEL Potassium Lvl 3.9 3.5 - 5.1 03/24/2018 [facility] CHEM PANEL Sodium Lvl 138 135 - 145 03/24/2018 [facility] CHEM PANEL Chloride Lvl 104 95 - 109 03/24/2018 [facility] CHEM PANEL Albumin Lvl 2.9 3.5 - 5.0 03/24/2018 [facility] CHEM PANEL Calcium Lvl 8.1 8.5 - 10.5 03/24/2018 [facility] CHEM PANEL CO2 26 24 - 32 03/24/2018 [facility] CHEM PANEL Total Protein 7.1 6.4 - 8.4 03/24/2018 [facility] HEMATOLOGY Monocytes # 0.6 0.0 - 0.8 03/24/2018 [facility] HEMATOLOGY Lymphocytes # 2.8 1.0 - 5.5 03/24/2018 [facility] HEMATOLOGY Monocytes 7.0 2.0 - 12.0 03/24/2018 [facility] HEMATOLOGY Basophils 0.8 0.0 - 1.0 03/24/2018 [facility] HEMATOLOGY Eosinophils 4.1 0.0 - 4.0 03/24/2018 [facility] HEMATOLOGY Basophils # 0.1 0.0 - 0.2 03/24/2018 [facility] HEMATOLOGY Eosinophils # 0.3 0.0 - 0.5 03/24/2018 [facility] HEMATOLOGY Segs-Bands # 4.4 1.5 - 8.1 03/24/2018 [facility] HEMATOLOGY Lymphocytes 34.2 20.0 - 40.0 03/24/2018 [facility] HEMATOLOGY Segs 53.9 45.0 - 75.0 03/24/2018 [facility] HEMATOLOGY RDW 14.7 11.5 - 14.5 03/24/2018 [facility] HEMATOLOGY Platelet 248 133 - 450 03/24/2018 [facility] HEMATOLOGY MPV 8.8 7.4 - 10.4 03/24/2018 [facility] HEMATOLOGY Hct 38.5 36.0 - 48.0 03/24/2018 [facility] HEMATOLOGY MCH 26.6 27.0 - 31.0 03/24/2018 [facility] HEMATOLOGY MCV 81.5 80.0 - 98.0 03/24/2018 [facility] HEMATOLOGY MCHC 32.6 32.0 - 36.0 03/24/2018 [facility] HEMATOLOGY Hgb 12.6 12.0 - 16.0 03/24/2018 [facility] HEMATOLOGY RBC 4.72 4.20 - 5.40 03/24/2018 [facility] HEMATOLOGY WBC 8.2 3.7 - 10.4 03/24/2018 [facility] HEMATOLOGY PT 14.0 12.0 - 14.7 03/24/2018 [facility] HEMATOLOGY INR 1.08 0.85 - 1.17 03/24/2018 [facility] HEMATOLOGY PTT 34.2 22.9 - 35.8 03/24/2018 [facility] CARDIAC ENZYMES Troponin-I 0.04 0.00 - 0.40 03/23/2018 [facility] HEMATOLOGY Segs 58.2 45.0 - 75.0 03/23/2018 [facility] HEMATOLOGY Eosinophils # 0.3 0.0 - 0.5 03/23/2018 [facility] HEMATOLOGY Basophils # 0.1 0.0 - 0.2 03/23/2018 [facility] HEMATOLOGY Eosinophils 3.8 0.0 - 4.0 03/23/2018 [facility] HEMATOLOGY Basophils 1.2 0.0 - 1.0 03/23/2018 [facility] HEMATOLOGY Lymphocytes 31.4 20.0 - 40.0 03/23/2018 [facility] HEMATOLOGY Monocytes 5.4 2.0 - 12.0 03/23/2018 [facility] HEMATOLOGY Lymphocytes # 2.5 1.0 - 5.5 03/23/2018 [facility] HEMATOLOGY Monocytes # 0.4 0.0 - 0.8 03/23/2018 [facility] HEMATOLOGY Segs-Bands # 4.6 1.5 - 8.1 03/23/2018 [facility] HEMATOLOGY INR 1.11 0.85 - 1.17 03/23/2018 [facility] HEMATOLOGY PT 14.3 12.0 - 14.7 03/23/2018 [facility] HEMATOLOGY PTT 34.4 22.9 - 35.8 03/23/2018 [facility] HEMATOLOGY MCH 27.3 27.0 - 31.0 03/23/2018 [facility] HEMATOLOGY MCV 81.0 80.0 - 98.0 03/23/2018 [facility] HEMATOLOGY RDW 14.5 11.5 - 14.5 03/23/2018 [facility] HEMATOLOGY MCHC 33.6 32.0 - 36.0 03/23/2018 [facility] HEMATOLOGY Hgb 12.8 12.0 - 16.0 03/23/2018 [facility] HEMATOLOGY Hct 38.1 36.0 - 48.0 03/23/2018 [facility] HEMATOLOGY Platelet 277 133 - 450 03/23/2018 [facility] HEMATOLOGY MPV 8.6 7.4 - 10.4 03/23/2018 [facility] HEMATOLOGY RBC 4.70 4.20 - 5.40 03/23/2018 [facility] HEMATOLOGY WBC 7.9 3.7 - 10.4 03/23/2018 [facility] ELECTROLYTES Potassium Lvl 3.8 3.5 - 5.1 03/23/2018 [facility] CARDIAC ENZYMES Total CK 69 12 - 191 03/23/2018 [facility] CARDIAC ENZYMES Troponin-I <0.02 0.00 - 0.40 03/23/2018 [facility] CARDIAC ENZYMES Troponin-I <0.02 0.00 - 0.40 03/23/2018 [facility] CARDIAC ENZYMES Total CK 83 12 - 191 03/23/2018 [facility] CARDIAC ENZYMES CK MB Index <0.6 0.0 - 2.5 03/23/2018 [facility] CARDIAC ENZYMES CK MB <0.5 0.5 - 3.6 03/23/2018 [facility] ELECTROLYTES AGAP 14.2 10.0 - 20.0 03/23/2018 [facility] ELECTROLYTES eGFR 90 03/23/2018 Result Comment: The eGFR is calculated using the CKD-EPI formula. In most young, healthy individuals the eGFR will be >90 mL/min/1.73m2. The eGFR declines with age. An eGFR of 60-89 may be normal in some populations, particularly the elderly, for whom the CKD-EPI formula has not been extensively validated. Use of the eGFR is not recommended in the following populations:

Individuals with unstable creatinine concentrations, including patients and those with serious co-morbid conditions.

Patients with extremes in muscle mass or diet.

The data above are obtained from the National Kidney Disease Education Program (NKDEP) which additionally recommends that when the eGFR is used in patients with extremes of body mass index for purposes of drug dosing, the eGFR should be multiplied by the estimated BMI. [facility] ELECTROLYTES Glucose Lvl 131 70 - 99 03/23/2018 [facility] ELECTROLYTES BUN 13 7 - 22 03/23/2018 [facility] ELECTROLYTES Creatinine Lvl 0.8 5 0.50 - 1.40 03/23/2018 [facility] ELECTROLYTES Chloride Lvl 103 95 - 109 03/23/2018 [facility] ELECTROLYTES Sodium Lvl 142 135 - 145 03/23/2018 [facility] ELECTROLYTES Potassium Lvl 3.2 3.5 - 5.1 03/23/2018 [facility] ELECTROLYTES Calcium Lvl 8.9 8.5 - 10.5 03/23/2018 [facility] ELECTROLYTES CO2 28 24 - 32 03/23/2018 [facility] HEMATOLOGY Lymphocytes # 2.7 1.0 - 5.5 03/23/2018 [facility] HEMATOLOGY Segs-Bands # 5.3 1.5 - 8.1 03/23/2018 [facility] HEMATOLOGY Eosinophils 3.1 0.0 - 4.0 03/23/2018 [facility] HEMATOLOGY Monocytes 5.7 2.0 - 12.0 03/23/2018 [facility] HEMATOLOGY Eosinophils # 0.3 0.0 - 0.5 03/23/2018 [facility] HEMATOLOGY Monocytes # 0.5 0.0 - 0.8 03/23/2018 [facility] HEMATOLOGY Basophils # 0.1 0.0 - 0.2 03/23/2018 [facility] HEMATOLOGY Basophils 0.6 0.0 - 1.0 03/23/2018 [facility] HEMATOLOGY Lymphocytes 30.7 20.0 - 40.0 03/23/2018 [facility] HEMATOLOGY Segs 59.9 45.0 - 75.0 03/23/2018 [facility] HEMATOLOGY Hgb 12.4 12.0 - 16.0 03/23/2018 [facility] HEMATOLOGY WBC 8.8 3.7 - 10.4 03/23/2018 [facility] HEMATOLOGY RBC 4.56 4.20 - 5.40 03/23/2018 [facility] HEMATOLOGY Hct 36.8 36.0 - 48.0 03/23/2018 [facility] HEMATOLOGY MCV 80.7 80.0 - 98.0 03/23/2018 [facility] HEMATOLOGY MCHC 33.7 32.0 - 36.0 03/23/2018 [facility] HEMATOLOGY MCH 27.2 27.0 - 31.0 03/23/2018 [facility] HEMATOLOGY RDW 14.9 11.5 - 14.5 03/23/2018 [facility] HEMATOLOGY MPV 8.4 7.4 - 10.4 03/23/2018 [facility] HEMATOLOGY Platelet 266 133 - 450 03/23/2018 [facility] LIPIDS VLDL 57 03/23/2018 [facility] LIPIDS LDL (Calculated) 114 <=99 mg/dL 03/23/2018 [facility] LIPIDS Chol 204 <=199 mg/dL 03/23/2018 [facility] LIPIDS CHD Risk 6.18 3.90 - 5.80 03/23/2018 [facility] LIPIDS HDL 33 >=61 mg/dL 03/23/2018 [facility] LIPIDS Trig 285 <=149 mg/dL 03/23/2018 [facility] CHEM PANEL eGFR 86 03/23/2018 Result Comment: The eGFR is calculated using the CKD-EPI formula. In most young, healthy individuals the eGFR will be >90 mL/min/1.73m2. The eGFR declines with age. An eGFR of 60-89 may be normal in some populations, particularly the elderly, for whom the CKD-EPI formula has not been extensively validated. Use of the eGFR is not recommended in the following populations:

Individuals with unstable creatinine concentrations, including patients and those with serious co-morbid conditions.

Patients with extremes in muscle mass or diet.

The data above are obtained from the National Kidney Disease Education Program (NKDEP) which additionally recommends that when the eGFR is used in patients with extremes of body mass index for purposes of drug dosing, the eGFR should be multiplied by the estimated BMI. [facility] CHEM PANEL Sodium Lvl 138 135 - 145 03/23/2018 [facility] CHEM PANEL Glucose Lvl 150 70 - 99 03/23/2018 [facility] CHEM PANEL Calcium Lvl 9.4 8.5 - 10.5 03/23/2018 [facility] CHEM PANEL CO2 26 24 - 32 03/23/2018 [facility] CHEM PANEL Chloride Lvl 102 95 - 109 03/23/2018 [facility] CHEM PANEL BUN 12 7 - 22 03/23/2018 [facility] CHEM PANEL Creatinine Lvl 0.88 0.50 - 1.40 03/23/2018 [facility] CHEM PANEL AGAP 13.3 10.0 - 20.0 03/23/2018 [facility] CARDIAC ENZYMES Troponin-I <0.02 0.00 - 0.40 08/18/2016 [facility] CHEM PANEL Lipase Lvl 84 73 - 393 08/18/2016 [facility] CHEM PANEL AST 19 0 - 37 08/18/2016 [facility] CHEM PANEL Alk Phos 148 39 - 136 08/18/2016 [facility] CHEM PANEL ALT 36 0 - 65 08/18/2016 [facility] CHEM PANEL Total Protein 8.8 6.4 - 8.4 08/18/2016 [facility] CHEM PANEL Albumin Lvl 4.0 3.5 - 5.0 08/18/2016 [facility] CHEM PANEL Bili Indirect 0.2 0.0 - 1.0 08/18/2016 [facility] CHEM PANEL Globulin 4.8 2.7 - 4.2 08/18/2016 [facility] CHEM PANEL A/G Ratio 0.8 0.7 - 1.6 08/18/2016 [facility] CHEM PANEL Bili Total 0.3 0.2 - 1.3 08/18/2016 [facility] CHEM PANEL Bili Direct 0.1 0.0 - 0.3 08/18/2016 [facility] ELECTROLYTES AGAP 16.6 10.0 - 20.0 08/18/2016 [facility] ELECTROLYTES Creatinine Lvl 0.9 2 0.50 - 1.40 08/18/2016 [facility] ELECTROLYTES BUN 8 7 - 22 08/18/2016 [facility] ELECTROLYTES Chloride Lvl 100 95 - 109 08/18/2016 [facility] ELECTROLYTES Sodium Lvl 141 135 - 145 08/18/2016 [facility] ELECTROLYTES Potassium Lvl 3.6 3.5 - 5.1 08/18/2016 [facility] ELECTROLYTES Calcium Lvl 9.1 8.5 - 10.5 08/18/2016 [facility] ELECTROLYTES CO2 28 24 - 32 08/18/2016 [facility] ELECTROLYTES Glucose Lvl 114 70 - 99 08/18/2016 [facility] ELECTROLYTES eGFR 82 08/18/2016 Result Comment: The eGFR is calculated using the CKD-EPI formula. In most young, healthy individuals the eGFR will be >90 mL/min/1.73m2. The eGFR declines with age. An eGFR of 60-89 may be normal in some populations, particularly the elderly, for whom the CKD-EPI formula has not been extensively validated. Use of the eGFR is not recommended in the following populations:

Individuals with unstable creatinine concentrations, including patients and those with serious co-morbid conditions.

Patients with extremes in muscle mass or diet.

The data above are obtained from the National Kidney Disease Education Program (NKDEP) which additionally recommends that when the eGFR is used in patients with extremes of body mass index for purposes of drug dosing, the eGFR should be multiplied by the estimated BMI. [facility] HEMATOLOGY RBC 5.32 4.20 - 5.40 08/18/2016 [facility] HEMATOLOGY WBC 8.7 3.7 - 10.4 08/18/2016 [facility] HEMATOLOGY MCH 27.0 27.0 - 31.0 08/18/2016 [facility] HEMATOLOGY MCV 80.3 80.0 - 98.0 08/18/2016 [facility] HEMATOLOGY Hct 42.7 36.0 - 48.0 08/18/2016 [facility] HEMATOLOGY MCHC 33.6 32.0 - 36.0 08/18/2016 [facility] HEMATOLOGY Hgb 14.3 12.0 - 16.0 08/18/2016 [facility] HEMATOLOGY Platelet 248 133 - 450 08/18/2016 [facility] HEMATOLOGY RDW 14.9 11.5 - 14.5 08/18/2016 [facility] HEMATOLOGY MPV 8.8 7.4 - 10.4 08/18/2016 [facility] HEMATOLOGY Eosinophils # 0.2 0.0 - 0.5 08/18/2016 [facility] HEMATOLOGY Basophils 0.7 0.0 - 1.0 08/18/2016 [facility] HEMATOLOGY Monocytes # 0.6 0.0 - 0.8 08/18/2016 [facility] HEMATOLOGY Lymphocytes # 3.8 1.0 - 5.5 08/18/2016 [facility] HEMATOLOGY Segs-Bands # 4.0 1.5 - 8.1 08/18/2016 [facility] HEMATOLOGY Basophils # 0.1 0.0 - 0.2 08/18/2016 [facility] HEMATOLOGY Lymphocytes 43.8 20.0 - 40.0 08/18/2016 [facility] HEMATOLOGY Eosinophils 2.7 0.0 - 4.0 08/18/2016 [facility] HEMATOLOGY Segs 46.3 45.0 - 75.0 08/18/2016 [facility] HEMATOLOGY Monocytes 6.5 2.0 - 12.0 08/18/2016 [facility] CHEMISTRY Troponin-T <0.010 0.000 - 0.100 03/17/2012 Normal [facility] CHEMISTRY Troponin-I 0.03 0.00 - 0.40 03/17/2012 Normal [facility] CHEMISTRY Troponin-I 0.05 0.00 - 0.40 03/17/2012 Normal [facility] CHEMISTRY Troponin-T <0.010 0.000 - 0.100 03/17/2012 Normal [facility] CHEMISTRY Total CK 112 12 - 191 03/16/2012 Normal [facility] CHEMISTRY Troponin-I 0.06 0.00 - 0.40 03/16/2012 Normal [facility] CHEMISTRY Lipase Lvl 92 73 - 393 03/16/2012 Normal [facility] CHEMISTRY AST 16 0 - 37 03/16/2012 Normal [facility] CHEMISTRY ALT 47 0 - 65 03/16/2012 Normal [facility] CHEMISTRY Albumin Lvl 4.3 3.5 - 5.0 03/16/2012 Normal [facility] CHEMISTRY Total Protein 8.2 6.4 - 8.4 03/16/2012 Normal [facility] CHEMISTRY Bili Total 0.4 0.2 - 1.3 03/16/2012 Normal [facility] CHEMISTRY Alk Phos 123 39 - 136 03/16/2012 Normal [facility] CHEMISTRY CO2 28 24 - 32 03/16/2012 Normal [facility] CHEMISTRY Calcium Lvl 9.9 8.5 - 10.5 03/16/2012 Normal [facility] CHEMISTRY Creatinine Lvl 0.9 0.5 - 1.4 03/16/2012 Normal [facility] CHEMISTRY Chloride Lvl 103 95 - 109 03/16/2012 Normal [facility] CHEMISTRY Sodium Lvl 142 135 - 145 03/16/2012 Normal [facility] CHEMISTRY Potassium Lvl 3.7 3.5 - 5.1 03/16/2012 Normal [facility] CHEMISTRY Glucose Lvl 101 70 - 99 03/16/2012 HI <sup>1</sup>Interpretive Data: Adult ref erence range values reflect the clinical guidelines of the [place] [employer]. [facility] CHEMISTRY BUN 12 7 - 22 03/16/2012 Normal [facility] CHEMISTRY A/G Ratio 1.1 0.7 - 1.6 03/16/2012 Normal [facility] CHEMISTRY Globulin 3.9 2.0 - 4.0 03/16/2012 Normal [facility] CHEMISTRY B/C Ratio 13 6 - 25 03/16/2012 Normal [facility] CHEMISTRY AGAP 14.7 10.0 - 20.0 03/16/2012 Normal [facility] CHEMISTRY U Preg Negati ve (03/16/2012 16:05:00) Negati ve 03/16/2012 Normal [facility] CHEMISTRY CK MB Index <0.4 0.0 - 2.5 03/16/2012 Normal [facility] CHEMISTRY CK MB <0.5 0.5 - 3.6 03/16/2012 Normal [facility] HEMATOLOGY PTT 33.7 22.9 - 35.8 03/16/2012 Normal <sup>3</sup>Interpretive Data: Heparin T herapeutic Range: 57 - 92 Seconds [facility] HEMATOLOGY PT 13.4 12.0 - 14.7 03/16/2012 Normal [facility] HEMATOLOGY INR 1.02 0.85 - 1.17 03/16/2012 Normal <sup>2</sup>Interpretive Data: RECOMMEND ED RANGES FOR PROTIME INR: 2.0-3.0 for most medical and surgical thromboembolic states. 2.5-3.5 for artificial heart valves and recurrent embolism. INR SHOULD BE USED ONLY FOR PATIENTS ON STABLE ANTICOAGULANT THERAPY. [facility] HEMATOLOGY MCHC 33.5 32.0 - 36.0 03/16/2012 Normal [facility] HEMATOLOGY RDW 14.4 11.5 - 14.5 03/16/2012 Normal [facility] HEMATOLOGY Platelet 226 133 - 450 03/16/2012 Normal [facility] HEMATOLOGY MPV 9.7 7.4 - 10.4 03/16/2012 Normal [facility] HEMATOLOGY Hct 40.8 36.0 - 48.0 03/16/2012 Normal [facility] HEMATOLOGY MCV 81.9 81.0 - 99.0 03/16/2012 Normal [facility] HEMATOLOGY MCH 27.4 27.0 - 31.0 03/16/2012 Normal [facility] HEMATOLOGY WBC 10.2 3.7 - 10.4 03/16/2012 Normal [facility] HEMATOLOGY RBC 4.98 4.20 - 5.40 03/16/2012 Normal [facility] HEMATOLOGY Hgb 13.7 12.0 - 16.0 03/16/2012 Normal [facility] HEMATOLOGY Eosinophils # 0.2 0.0 - 0.5 03/16/2012 Normal [facility] HEMATOLOGY Basophils # 0.1 0.0 - 0.2 03/16/2012 Normal [facility] HEMATOLOGY Basophils 0.5 0.0 - 1.0 03/16/2012 Normal [facility] HEMATOLOGY Segs-Bands # 6.6 1.5 - 8.1 03/16/2012 Normal [facility] HEMATOLOGY Lymphocytes # 2.9 1.0 - 5.5 03/16/2012 Normal [facility] HEMATOLOGY Monocytes # 0.4 0.0 - 0.8 03/16/2012 Normal [facility] HEMATOLOGY Segs 64.3 45.0 - 75.0 03/16/2012 Normal [facility] HEMATOLOGY Lymphocytes 28.9 20.0 - 40.0 03/16/2012 Normal [facility] HEMATOLOGY Monocytes 4.3 2.0 - 12.0 03/16/2012 Normal [facility] HEMATOLOGY Eosinophils 2.0 0.0 - 4.0 03/16/2012 Normal [facility] URINALYSIS UA Trichomonas Occas ional /HPF *ABN* (03/16/2012 16:05:00) None S een 03/16/2012 ABN [facility] URINALYSIS UA Bacteria Moder ate /HPF (03/16/2012 16:05:00) None S een 03/16/2012 Normal [facility] URINALYSIS UA RBC 3-5 / HPF *ABN* (03/16/2012 16:05:00) 0 - 2 03/16/2012 ABN [facility] URINALYSIS UA Sq Epi Many /LPF *ABN* (03/16/2012 16:05:00) Few 03/16/2012 ABN [facility] URINALYSIS UA WBC 6-10 /HPF *ABN* (03/16/2012 16:05:00) None S een 03/16/2012 ABN [facility] URINALYSIS Micro? Perfo rmed (03/16/2012 16:05:00) 03/16/2012 Normal [facility] URINALYSIS UA Urobilinogen 0.2 0.1 - 1.0 03/16/2012 Normal [facility] URINALYSIS UA Nitrite Negat rosina (03/16/2012 16:05:00) Negati ve 03/16/2012 Normal [facility] URINALYSIS UA Bili Negat rosina *NA* (03/16/2012 16:05:00) Negati ve 03/16/2012 NA [facility] URINALYSIS UA Blood Small *ABN* (03/16/2012 16:05:00) Negati ve 03/16/2012 ABN [facility] URINALYSIS UA Protein Trace *ABN* (03/16/2012 16:05:00) Negati ve 03/16/2012 ABN [facility] URINALYSIS UA Glucose Negat rosina (03/16/2012 16:05:00) Negati ve 03/16/2012 Normal [facility] URINALYSIS UA Color Yello w *NA* (03/16/2012 16:05:00) Yellow 03/16/2012 NA [facility] URINALYSIS UA Turbidity Sligh t Cloudy (03/16/2012 16:05:00) Clear 03/16/2012 Normal [facility] URINALYSIS UA Ketones Negat rosina *NA* (03/16/2012 16:05:00) Negati ve 03/16/2012 NA [facility] URINALYSIS UA Leuk Est Negat rosina (03/16/2012 16:05:00) Negati ve 03/16/2012 Normal [facility] URINALYSIS UA Spec Grav 1.022 <=1.030 03/16/2012 Normal [facility] URINALYSIS UA pH 6.0 5.0 - 8.0 03/16/2012 Normal [facility] Microbiology Culture: Urine 11/29/2011 [facility] URINALYSIS UA Urobilinogen 0.1 - 1.0 11/29/2011 NA [facility] URINALYSIS UA [place] 1 11/29/2011 NA [facility] URINALYSIS UA Color Yello w *NA* (11/29/2011 15:34:00) Yellow 11/29/2011 NA [facility] URINALYSIS UA pH 6.0 5.0 - 8.0 11/29/2011 Normal [facility] URINALYSIS UA Mucus Few / LPF *NA* (11/29/2011 15:34:00) None S een 11/29/2011 NA [facility] URINALYSIS UA Turbidity Clear (11/29/2011 15:34:00) Clear 11/29/2011 Normal [facility] URINALYSIS UA Bacteria Few / HPF *NA* (11/29/2011 15:34:00) None S een 11/29/2011 NA [facility] URINALYSIS UA WBC 5 0 - 5 11/29/2011 Normal [facility] URINALYSIS UA RBC 1 0 - 2 11/29/2011 Normal [facility] URINALYSIS UA Nitrite Negat rosina (11/29/2011 15:34:00) Negati ve 11/29/2011 Normal [facility] URINALYSIS UA Blood Negat rosina (11/29/2011 15:34:00) Negati ve 11/29/2011 Normal [facility] URINALYSIS UA Glucose Negat rosina mg/dL *NA* (11/29/2011 15:34:00) Negati ve 11/29/2011 NA [facility] URINALYSIS UA Leuk Est Trace *ABN* (11/29/2011 15:34:00) Negati ve 11/29/2011 ABN [facility] URINALYSIS UA Ketones Negat rosina mg/dL *NA* (11/29/2011 15:34:00) Negati ve 11/29/2011 NA [facility] URINALYSIS UA Sq Epi Many /LPF *ABN* (11/29/2011 15:34:00) Few 11/29/2011 ABN [facility] URINALYSIS UA Protein 70 mg /dL *ABN* (11/29/2011 15:34:00) Negati ve 11/29/2011 ABN [facility] URINALYSIS UA Spec Grav 1.013 <=1.030 11/29/2011 Normal [facility] URINALYSIS UA Bili Negat rosina *NA* (11/29/2011 15:34:00) Negati ve 11/29/2011 NA [facility] CHEMISTRY CK MB 0.5 0.5 - 3.6 11/29/2011 Normal [facility] CHEMISTRY CK MB Index 0.6 0.0 - 2.5 11/29/2011 Normal [facility] CHEMISTRY Troponin-I <0.02 0.00 - 0.40 11/29/2011 Normal [facility] CHEMISTRY Total CK 78 12 - 191 11/29/2011 Normal [facility] CHEMISTRY CK MB Index <0.6 0.0 - 2.5 11/29/2011 Normal [facility] CHEMISTRY CK MB <0.5 0.5 - 3.6 11/29/2011 Normal [facility] CHEMISTRY Total CK 83 12 - 191 11/29/2011 Normal [facility] CHEMISTRY Troponin-I <0.02 0.00 - 0.40 11/29/2011 Normal [facility] CHEMISTRY Troponin-I <0.02 0.00 - 0.40 11/28/2011 Normal [facility] CHEMISTRY Total CK 104 12 - 191 11/28/2011 Normal [facility] CHEMISTRY AGAP 12.3 10.0 - 20.0 11/28/2011 Normal [facility] CHEMISTRY B/C Ratio 14 6 - 25 11/28/2011 Normal [facility] CHEMISTRY CO2 24 24 - 32 11/28/2011 Normal [facility] CHEMISTRY Calcium Lvl 8.4 8.5 - 10.5 11/28/2011 LOW [facility] CHEMISTRY Glucose Lvl 118 11/28/2011 NA <sup>1</sup>Interpretive Data: Reference Ranges : 0 - 7 days : 41 - 90 mg/dL 7 days - 150 yrs : 70 - 99 mg/dL (fasting), based on the clinical recommendations of the [place] [employer]. [facility] CHEMISTRY Sodium Lvl 139 135 - 145 11/28/2011 Normal [facility] CHEMISTRY Potassium Lvl 4.3 3.5 - 5.1 11/28/2011 Normal [facility] CHEMISTRY BUN 15 7 - 22 11/28/2011 Normal [facility] CHEMISTRY Creatinine Lvl 1.1 0.5 - 1.4 11/28/2011 Normal [facility] CHEMISTRY Chloride Lvl 107 95 - 109 11/28/2011 Normal [facility] CHEMISTRY A/G Ratio 1.0 0.7 - 1.6 11/28/2011 Normal [facility] CHEMISTRY Globulin 3.5 2.0 - 4.0 11/28/2011 Normal [facility] CHEMISTRY AST 16 0 - 37 11/28/2011 Normal [facility] CHEMISTRY Bili Total 0.2 0.2 - 1.3 11/28/2011 Normal [facility] CHEMISTRY Alk Phos 98 39 - 136 11/28/2011 Normal [facility] CHEMISTRY ALT 32 0 - 65 11/28/2011 Normal [facility] CHEMISTRY Albumin Lvl 3.4 3.5 - 5.0 11/28/2011 LOW [facility] CHEMISTRY Total Protein 6.9 6.4 - 8.4 11/28/2011 Normal [facility] CHEMISTRY CK MB Index 0.5 0.0 - 2.5 11/28/2011 Normal [facility] CHEMISTRY CK MB 0.5 0.5 - 3.6 11/28/2011 Normal [facility] CHEMISTRY Troponin-T <0.010 0.000 - 0.100 11/28/2011 Normal [facility] HEMATOLOGY Basophils # 0.1 0.0 - 0.2 11/28/2011 Normal [facility] HEMATOLOGY Basophils 0.9 0.0 - 1.0 11/28/2011 Normal [facility] HEMATOLOGY Monocytes # 0.3 0.0 - 0.8 11/28/2011 Normal [facility] HEMATOLOGY Eosinophils # 0.2 0.0 - 0.5 11/28/2011 Normal [facility] HEMATOLOGY Segs-Bands # 4.8 1.5 - 8.1 11/28/2011 [facility] HEMATOLOGY Lymphocytes # 2.1 1.0 - 5.5 11/28/2011 Normal [facility] HEMATOLOGY Eosinophils 3.1 0.0 - 4.0 11/28/2011 [facility] HEMATOLOGY Monocytes 4.2 2.0 - 12.0 11/28/2011 [facility] HEMATOLOGY Segs 63.7 45.0 - 75.0 11/28/2011 Normal [facility] HEMATOLOGY Lymphocytes 28.1 20.0 - 40.0 11/28/2011 [facility] HEMATOLOGY Anisocyte 1+ *ABN* (11/28/2011 15:20:00) None S een 11/28/2011 ABN [facility] HEMATOLOGY Plt Morph Danielle l (11/28/2011 15:20:00) 11/28/2011 Normal [facility] HEMATOLOGY MPV 10.0 7.4 - 10.4 11/28/2011 [facility] HEMATOLOGY Hgb 13.8 12.0 - 16.0 11/28/2011 Normal [facility] HEMATOLOGY RBC 5.04 4.20 - 5.40 11/28/2011 [facility] HEMATOLOGY WBC 7.5 3.7 - 10.4 11/28/2011 [facility] HEMATOLOGY RDW 14.7 11.5 - 14.5 11/28/2011 HI [facility] HEMATOLOGY MCHC 33.3 32.0 - 36.0 11/28/2011 Normal [facility] HEMATOLOGY Platelet 263 133 - 450 11/28/2011 Normal [facility] HEMATOLOGY MCV 82.0 81.0 - 99.0 11/28/2011 Normal [facility] HEMATOLOGY Hct 41.4 36.0 - 48.0 11/28/2011 Normal [facility] HEMATOLOGY MCH 27.3 27.0 - 31.0 11/28/2011 Normal [facility] HEMATOLOGY INR 0.95 0.85 - 1.17 11/28/2011 Normal <sup>2</sup>Interpretive Data: RECOMMEND ED RANGES FOR PROTIME INR: 2.0-3.0 for most medical and surgical thromboembolic states. 2.5-3.5 for artificial heart valves and recurrent embolism. INR SHOULD BE USED ONLY FOR PATIENTS ON STABLE ANTICOAGULANT THERAPY. [facility] HEMATOLOGY PTT 33.7 22.9 - 35.8 11/28/2011 Normal <sup>3</sup>Interpretive Data: Heparin T herapeutic Range: 57 - 92 Seconds [facility] HEMATOLOGY PT 12.7 12.0 - 14.7 11/28/2011 Normal [facility] CHEMISTRY U Preg Negati ve (06/22/2011 16:03:00) ?? >Nega tive 06/22/2011 Normal [facility] URINALYSIS UA Mucus Few / LPF (06/22/2011 16:03:00) ?? >None Seen 06/22/2011 Normal [facility] URINALYSIS UA Trichomonas Few / HPF *ABN* (06/22/2011 16:03:00) ?? >None Seen 06/22/2011 ABN [facility] URINALYSIS UA Bacteria Few / HPF (06/22/2011 16:03:00) ?? >None Seen 06/22/2011 Normal [facility] URINALYSIS UA Leuk Est Small *ABN* (06/22/2011 16:03:00) ?? >Nega tive 06/22/2011 ABN [facility] URINALYSIS UA Sq Epi Many /LPF *ABN* (06/22/2011 16:03:00) ?? >Few 06/22/2011 ABN [facility] URINALYSIS Micro? Perfo rmed (06/22/2011 16:03:00) ?? 06/22/2011 Normal [facility] URINALYSIS UA RBC 0-2 / HPF (06/22/2011 16:03:00) ?? >0 - 2 06/22/2011 Normal [facility] URINALYSIS UA WBC 3-5 / HPF (06/22/2011 16:03:00) ?? >None Seen 06/22/2011 Normal [facility] URINALYSIS UA Urobilinogen 1.0 0.1 - 1.0 06/22/2011 Normal [facility] URINALYSIS UA Nitrite Negat rosina (06/22/2011 16:03:00) ?? >Nega tive 06/22/2011 Normal [facility] URINALYSIS UA Turbidity [place] y *ABN* (06/22/2011 16:03:00) ?? >Clear 06/22/2011 ABN [facility] URINALYSIS UA Spec Grav 1.015 <<=1.030 06/22/2011 Normal [facility] URINALYSIS UA Ketones Negat rosina *NA* (06/22/2011 16:03:00) ?? >Nega tive 06/22/2011 NA [facility] URINALYSIS UA Bili Negat rosina *NA* (06/22/2011 16:03:00) ?? >Nega tive 06/22/2011 NA [facility] URINALYSIS UA Blood Trace *ABN* (06/22/2011 16:03:00) ?? >Nega tive 06/22/2011 ABN [facility] URINALYSIS UA Glucose Negat rosina (06/22/2011 16:03:00) ?? >Nega tive 06/22/2011 Normal [facility] URINALYSIS UA pH 7.0 5.0 - 8.0 06/22/2011 Normal [facility] URINALYSIS UA Protein Negat rosina (06/22/2011 16:03:00) ?? >Nega tive 06/22/2011 Normal [facility] URINALYSIS UA Color Yello w *NA* (06/22/2011 16:03:00) ?? >[place] ow 06/22/[address] [facility] CHEMISTRY Lactic Acid Lvl 0.8 0.5 - 2.2 06/22/2011 Normal [facility] HEMATOLOGY PT 13.5 12.0 - 14.7 06/22/2011 Normal [facility] HEMATOLOGY INR 1.03 0.85 - 1.17 06/22/2011 Normal <sup>2</sup>Interpretive Data: RECOMMEND ED RANGES FOR PROTIME INR: 2.0-3.0 for most medical and surgical thromboembolic states. 2.5-3.5 for artificial heart valves and recurrent embolism. INR SHOULD BE USED ONLY FOR PATIENTS ON STABLE ANTICOAGULANT THERAPY. [facility] HEMATOLOGY PTT 35.4 22.9 - 35.8 06/22/2011 Normal <sup>3</sup>Interpretive Data: Heparin T herapeutic Range: 57 - 92 Seconds [facility] CHEMISTRY Phosphorus 2.7 2.5 - 4.5 06/22/2011 Normal [facility] CHEMISTRY Magnesium Lvl 2.1 1.8 - 2.4 06/22/2011 Normal [facility] CHEMISTRY Creatinine Lvl 0.8 0.5 - 1.4 06/22/2011 Normal [facility] CHEMISTRY BUN 8.0 7 - 22 06/22/2011 Normal [facility] CHEMISTRY Glucose Lvl 109.0 06/22/2011 NA <sup>1</sup>Interpretive Data: Reference Ranges : 0 - 7 days : 41 - 90 mg/dL 7 days - 150 yrs : 70 - 99 mg/dL (fasting), based on the clinical recommendations of the [place] [employer]. [facility] CHEMISTRY Chloride Lvl 105.0 95 - 109 06/22/2011 Normal [facility] CHEMISTRY Sodium Lvl 140.0 135 - 145 06/22/2011 Normal [facility] CHEMISTRY Potassium Lvl 3.5 3.5 - 5.1 06/22/2011 Normal [facility] CHEMISTRY CO2 27.0 24 - 32 06/22/2011 Normal [facility] CHEMISTRY Calcium Lvl 9.0 8.5 - 10.5 06/22/2011 Normal [facility] CHEMISTRY AGAP 11.5 10.0 - 20.0 06/22/2011 Normal [facility] CHEMISTRY Lipase Lvl 78.0 73 - 393 06/22/2011 Normal [facility] CHEMISTRY Total Protein 8.0 6.4 - 8.4 06/22/2011 Normal [facility] CHEMISTRY ALT 40.0 0 - 65 06/22/2011 Normal [facility] CHEMISTRY Albumin Lvl 3.8 3.5 - 5.0 06/22/2011 Normal [facility] CHEMISTRY Bili Direct 0.1 0.0 - 0.3 06/22/2011 Normal [facility] CHEMISTRY Bili Total 0.4 0.2 - 1.3 06/22/2011 Normal [facility] CHEMISTRY Alk Phos 111.0 39 - 136 06/22/2011 Normal [facility] CHEMISTRY A/G Ratio 0.9 0.7 - 1.6 06/22/2011 Normal [facility] CHEMISTRY Globulin 4.2 2.0 - 4.0 06/22/2011 HI [facility] CHEMISTRY AST 14.0 0 - 37 06/22/2011 Normal [facility] CHEMISTRY Bili Indirect 0.3 0.0 - 1.0 06/22/2011 Normal [facility] HEMATOLOGY RDW 14.0 11.5 - 14.5 06/22/2011 Normal [facility] HEMATOLOGY MCHC 33.9 32.0 - 36.0 06/22/2011 [facility] HEMATOLOGY MPV 9.5 7.4 - 10.4 06/22/2011 Normal [facility] HEMATOLOGY MCH 28.0 27.0 - 31.0 06/22/2011 Normal [facility] HEMATOLOGY MCV 82.5 81.0 - 99.0 06/22/2011 [facility] HEMATOLOGY Hct 38.7 36.0 - 48.0 06/22/2011 Normal [facility] HEMATOLOGY Hgb 13.1 12.0 - 16.0 06/22/2011 [facility] HEMATOLOGY Platelet 214.0 133 - 450 06/22/2011 [facility] HEMATOLOGY WBC 8.1 3.7 - 10.4 06/22/2011 Normal [facility] HEMATOLOGY RBC 4.69 4.20 - 5.40 06/22/2011 Normal [facility] HEMATOLOGY Basophils 0.7 0.0 - 1.0 06/22/2011 Normal [facility] HEMATOLOGY Monocytes # 0.6 0.0 - 0.8 06/22/2011 [facility] HEMATOLOGY Lymphocytes # 1.7 1.0 - 5.5 06/22/2011 [facility] HEMATOLOGY Eosinophils # 0.1 0.0 - 0.5 06/22/2011 [facility] HEMATOLOGY Monocytes 7.0 2.0 - 12.0 06/22/2011 Normal [facility] HEMATOLOGY Eosinophils 1.3 0.0 - 4.0 06/22/2011 Normal [facility] HEMATOLOGY Segs-Bands # 5.6 1.5 - 8.1 06/22/2011 Normal [facility] HEMATOLOGY Lymphocytes 21.4 20.0 - 40.0 06/22/2011 Normal [facility] HEMATOLOGY Segs 69.6 45.0 - 75.0 06/22/2011 Normal [facility] HEMATOLOGY Basophils # 0.1 0.0 - 0.2 06/22/2011 Normal [facility] Pathology Reports No Data Provided for This Section Diagnostic Reports Report Value Date Source Chest/Abd/Pelvis CTA EXAM: CTA CHEST WITH CONTRAST EXAM: CTA ABDOMEN AND PELVIS WITH CONTRAST DATE: 03/23/2018 7:00 AM CDT INDICATION: - chest pain r/o dissection COMPARISON: CTA March 16, 2012 TECHNIQUE: Volumetric CT acquisition of the chest, abdomen and pelvis during the intravenous infusion of contrast in arterial phase. Axial, coronal and sagittal reconstructions, along with MIP reconstructions, are created at the acquisition workstation. IV contrast: 150 mL Omnipaque 350 Oral contrast: None. DLP: 1410 mGy-cm FINDINGS: AORTA: The aorta measures: 3.5 cm at the ascending aorta at the lev el of the pulmonary artery, 3 cm at the mid arch, 2.5 cm at the descending aorta at the le madhav of the main pulmonary artery, 2.4 cm at the level of the aortic hiatus , 1.7 cm at the level of the renal arterie s, and 1.5 cm just proximal to the iliac bifurc ation. No significant atherosclerotic plaque. The branching pattern is unremarkable. No dissection or pseudoaneurysm. There is an accessory right renal artery. Lungs and pleura: No pulmonary or pleural-based abnormality is identified. Hearth and mediastinum: Heart size is Subcentimeter mediastinal lymph nodes are nonspecific. Limited evaluation of the solid organs of the abdomen and pelvis due to arterial bolus timing. Abdomen: Unremarkable. Hepatobiliary: Unremarkable. Gallbladder: Unremarkable. Spleen: Unchanged splenic hypodensities most consistent with a splenic cyst. Pancreas: Unremarkable. Adrenals: Unremarkable. Kidneys: Unremarkable. Bowel and mesentery: Unremarkable. Bones: Unremarkable. IMPRESSION: 1. Normal appearance, caliber and branc fabrice pattern of the aorta. No evidence of aortic dissection or aneurysm. 2. No acute abnormality within the ches t, abdomen, or pelvis. 03/23/2018 [facility] Chest 2 views DX EXAM: XR CHES T 2 VIEWS DATE: 03/22/2018 7:29 PM CDT INDICATION: - chest pain COMPARISON: Chest radiograph on 08/18/2016. TECHNIQUE: PA and lateral chest radiographs FINDINGS: Lines, tubes and hardware: None. Lungs and pleura: There is mild bibasilar subsegmental atelectasis. No focal consolidations are seen. No pleural effusion or pneumothorax is present. Pulmonary vascularity is normal. Heart and mediastinum: The heart size is normal. The mediastinal contours are normal. Bones: No acute bony abnormality is identified. IMPRESSION: No acute cardiopulmonary abnormality. UT SECTION: ER 03/22/2018 [facility] Chest 2 views DX EXAM: XR CHES T 2 VIEWS DATE: 08/18/2016 2:25 PM [employer] DEVELOPER INDICATION: Cough and fever COMPARISON: None. TECHNIQUE: PA and lateral chest radiographs FINDINGS: Lines, tubes and hardware: None. Lungs and pleura: Mild bibasilar subsegmental atelectasis is noted.No pulmonary or pleural based abnormality is identified. Heart and mediastinum: The heart size is normal. The mediastinal contours are normal. Bones: No acute bony abnormality is identified. IMPRESSION: Mild bibasilar subsegmental atelectasis without evidence of focal consolidation. 08/18/2016 [facility] Consultation Notes No Data Provided for This Section Discharge Summaries No Data Provided for This Section History and Physicals No Data Provided for This Section Vital Signs Vital Sign Value Date Comments Source Respitory Rate 23 03/25/2018 [facility] Respitory Rate 21 03/25/2018 [facility] Systolic (mm Hg) 158 03/25/2018 [facility] Diastolic (mm Hg) 74 03/25/2018 [facility] Heart Rate 16 03/25/2018 [facility] Respitory Rate 32 03/25/2018 [facility] Temperature Oral (F) 96.9 F 03/25/2018 [facility] Heart Rate 18 03/25/2018 [facility] Heart Rate 18 03/25/2018 [facility] Systolic (mm Hg) 176 03/25/2018 [facility] Diastolic (mm Hg) 93 03/25/2018 [facility] Systolic (mm Hg) 169 03/25/2018 [facility] Diastolic (mm Hg) 100 03/25/2018 [facility] Weight 131.136 03/25/2018 [facility] Temperature Oral (F) 97.3 F 03/25/2018 [facility] Temperature Oral (F) 97.2 F 03/25/2018 [facility] Weight 129.545 03/23/2018 [facility] BMI Calculated 49.02 03/23/2018 [facility] Height 162.56 cm 03/23/2018 [facility] Height 162.56 cm 03/23/2018 [facility] Systolic (mm Hg) 188 08/19/2016 [facility] Diastolic (mm Hg) 86 08/19/2016 [facility] Temperature Oral (F) 98.0 F 08/19/2016 [facility] Systolic (mm Hg) 201 08/18/2016 [facility] Diastolic (mm Hg) 95 08/18/2016 [facility] Temperature Oral (F) 98.4 F 08/18/2016 [facility] Respitory Rate 20 08/18/2016 [facility] Weight 114.545 08/18/2016 [facility] Heart Rate 102 08/18/2016 [facility] Respitory Rate 25 08/18/2016 [facility] Systolic (mm Hg) 164 08/18/2016 [facility] Diastolic (mm Hg) 110 08/18/2016 [facility] Temperature Oral (F) 98.2 F 08/18/2016 [facility] BMI Calculated 43.35 08/18/2016 [facility] Height 162.56 cm 08/18/2016 [facility] Heart Rate 51 03/17/2012 [facility] Respitory Rate 20 03/17/2012 [facility] Temperature Oral (F) 96.4 F 03/17/2012 [facility] Systolic (mm Hg) 151 03/17/2012 [facility] Diastolic (mm Hg) 72 03/17/2012 [facility] Respitory Rate 20 03/17/2012 [facility] Systolic (mm Hg) 144 03/17/2012 [facility] Temperature Oral (F) 97.8 F 03/17/2012 [facility] Heart Rate 59 03/17/2012 [facility] Diastolic (mm Hg) 87 03/17/2012 [facility] Temperature Oral (F) 96.7 F 03/17/2012 [facility] Systolic (mm Hg) 127 03/17/2012 [facility] Respitory Rate 20 03/17/2012 [facility] Heart Rate 70 03/17/2012 [facility] Diastolic (mm Hg) 81 03/17/2012 [facility] Height 162.56 cm 03/16/2012 [facility] Weight 111.364 03/16/2012 [facility] Systolic (mm Hg) 122 11/30/2011 [facility] Diastolic (mm Hg) 67 11/30/2011 [facility] Temperature Oral (F) 98.8 F 11/30/2011 [facility] Heart Rate 74 11/30/2011 [facility] Respitory Rate 20 11/30/2011 [facility] Temperature Oral (F) 98.8 F 11/30/2011 [facility] Respitory Rate 18 11/30/2011 [facility] Systolic (mm Hg) 147 11/30/2011 [facility] Diastolic (mm Hg) 95 11/30/2011 [facility] Heart Rate 69 11/30/2011 [facility] Systolic (mm Hg) 118 11/30/2011 [facility] Respitory Rate 17 11/30/2011 [facility] Diastolic (mm Hg) 74 11/30/2011 [facility] Temperature Oral (F) 98.8 F 11/30/2011 [facility] Heart Rate 70 11/30/2011 [facility] Weight 116.364 11/29/2011 [facility] Height 162.56 cm 11/29/2011 [facility] Weight 109.091 11/28/2011 [facility] Height 162.56 cm 11/28/2011 [facility] Respitory Rate 18.0 06/23/2011 [facility] Temperature Oral (F) 98.9 F 06/23/2011 [facility] Diastolic (mm Hg) 92.0 06/23/2011 [facility] Systolic (mm Hg) 158.0 06/23/2011 [facility] Heart Rate 75.0 06/23/2011 [facility] Diastolic (mm Hg) 89.0 06/23/2011 [facility] Systolic (mm Hg) 190.0 06/23/2011 [facility] Respitory Rate 14.0 06/23/2011 [facility] Heart Rate 78.0 06/23/2011 [facility] Systolic (mm Hg) 199.0 06/22/2011 [facility] Diastolic (mm Hg) 93.0 06/22/2011 [facility] Heart Rate 94.0 06/22/2011 [facility] Respitory Rate 20.0 06/22/2011 [facility] Temperature Oral (F) 99.6 F 06/22/2011 [facility] Temperature Oral (F) 98.3 F 06/22/2011 [facility] Weight 118.182 06/22/2011 [facility] Height 162.56 cm 06/22/2011 [facility] Encounters Location Location Details Encounter Type Encounter Number Reason For Visit Attending Provider ADM Date DC Date Status Source [facility] Emergency [id number] EUGENIA MILLER METER 06/22/2011 06/22/2011 Discharged [facility] OU [id number] RADHA CURRAN ALEXANDER 012 11/30/2011 Discharged [facility] OU [id number] ISRA PARSONS 03/16/2012 03/17/2012 Discharged [facility] [id number] Ariadne Harris 08/18/2016 08/19/2016 [facility] Inpatient [id number] Lindsey Leo 03/23/2018 03/25/2018 [facility] Procedures Procedure Code Date Perfomer Comments Source Partial hysterectomy [id number] [facility] Assessment and Plan Assessment and Plan Date Source Extracted from:Title: Cardiology Progres s Note Author: Nghia Mathis MD Date: 03/25/18 Patient is a 52yo female with hx of HTN, DM, obesity, PUD, HLD who presented to the hospital with SOB and chest pain radiating to neck and back. On Admission, EKG found to have T-wave inversions in lateral and inferior lead, chest pain that improved with nitroglycerine,negative series oftroponins,Nuclear stress testshowing possible mild anterior and apical ischemia, TTE with LVEF 60-64% and nosignificant changes compared to TTE in 05/2011.Received C that showed noathersclerotic disease. 1. Unstable Angina - NST indicative ofmild anterior, apical ischemia though can be artifact. However higher clinical suspicion given patient's comorbities and symptoms. - Left heart catheterization showed no significant obstructive coronary artery disease. - continue current management. 2.HTN (hypertension) - Likely Essential HTN. - Blood pressure currently uncontrolled on current medication. - Recommend adding 12.5mg HCTZ to patient current Lisinopril 20mg OR increasing lisinopril to 40mg. 3. Obesity - discussed benefits of weight loss with patient in setting of high blood pressure, Diabetes and cardiac ischemia. 4. Type 2 diabetes mellitus - continue current managment Patient seen and rounded on with Dr. Avila. For any further questions, please call back Cardiology team. Nghia Mathis, DO Internal Medicine,PGY-1 Addendum by Gisele Avila MD on 03/25/2018 21:08 CDT Attending Attestation: I have seen and evaluated patient on 03/25/18. I have independently reviewed the history, imaging/diagnostic testings, lab results and examined the patient. I also have seen the patient in collaboration and discussed the management with the housestaff (Dr. Mathis). I agree with findings and plans outlined in the note by the resident/fellow with any exceptions noted in my note. #Chest pain #Abnormal Stress test #Essential hypertension #Obesity #Type 2 diabetes mellitus Coronary angiogram demonstrates no significant obstructive CAD. Continue to optimize medical management. Please consider either uptitrating lisinopril and/or adding HCTZ to further control BP. Counseled extensively with patienton lifestyle modifications. Gisele Avila MD [employer] Division of Cardiovascular Medicine Department of Internal Medicine Extracted from:Title: Cardiology Consult Note Author: Gisele Avila MD Date: 03/24/18 Patient is a 52yo female with hx of HTN, DM, obesity, PUD, HLD who presented to the hospital with SOB and chest pain radiating to neck and back. On Admission, EKG found to have T-wave inversions in lateral and inferior lead, chest pain that improved with nitroglycerine,negative series oftroponins,Nuclear stress testshowing possible mild anterior and apical ischemia, TTE with LVEF 60-64% and nosignificant changes compared to TTE in 05/2011. Asof now patient is nothaving chest pain. 1.Chest pain/abnormal stress test - Most consistent withAngina. - Trops 0.4, <.02 (x2) - Nuclear Stress test indicating medium size, mild, anterior and apical ischemia -EKG- showing T-wave inversions in lateral and inferior leads. +abnormal stress test: Given patient's m ultiple cardiac risk factors and chest pain. She is a good candidate for Coronary angiogram at this time. - Given hx of anophylactic shock to seaf ood allergy, would recommend prepping patient with methylprednisone, Benadryl, and Fimotidine MPP protocol. - Will attempt LHC today as patient is N PO. - asa, statin, bb, acei/arb, nitrate - Carlos Eduardo continue to follow. 2.HTN (hypertension) - Likely Essential HTN. - Blood pressure controlled on current m edication 137/79. - Would continue current regimen per [facility] team. 3. Obesity - discussed benefits of weight loss with patient in setting of high blood pressure, Diabetes and cardiac ischemia. 4. Type 2 diabetes mellitus -per primary team Patient seen and rounded on with Dr. Avila. Will continue to monitor post catheterization. Discussed plan withPrimary team attending, Dr. Landrum. For any further questions, please contact Cardiology Consult team. Nghia Mathis, Internal Medicine,PGY-1 Addendum by Gisele Avila MD on 03/24/2018 22:06 CDT Attending Attestation: I have seen and evaluated patient on 03/24/18. I have independently reviewed the history, imaging/diagnostic testings, lab results and examined the patient. I also have seen the patient in collaboration and discussed the management with the housestaff (Dr. Mathis). I agree with findings and plans outlined in the note by the resident/fellow with any exceptions noted in my note. #Chest pain #Abnormal Stress test #Essential hypertension #Obesity #Type 2 diabetes mellitus Gisele Avila MD [employer] Division of Cardiovascular Medicine Department of Internal Medicine Extracted from:Title: History and Physical Author: Isra Palomo MD Date: 03/22/18 52-year-old female with history ofhypert ension, diabetes, obesity, PUD presented withleft-sided chest painradiating to neck and back, associated withT-wave inversionon lateral and inferior EKG. Troponin isnegative on first set. 1.Chest pain Possibleunstable anginain a patient withHEART Scores 3. We will start ACS protocol except heparin drip given history of PUD. Start aspirin, PlavixandLipitor 80 mg daily Continue home lisinopril and carvedilol Echocardiogram and lexicon stress test tomorrow 2.HTN (hypertension) BP is elevated Resume home lisinopril, carvedilol,Imdur hold HCTZ 3.DM (diabetes mellitus), type 2 BG acceptable Start sliding-scale 4.Anxiety Continuehome Seroquelandbuspirone 5.Obesity Patient was counseled ondiet and exercise and weight losstechniques 6. PUD continue PPI lovenox pending improvement, expect 1mn,home upon discharge Addendum by Isra Palomo MD on 03/23/2018 05:40 CDT Patient has severe chest pain not relieved by nitroglycerin sl. She received dilaudid 0.5 mg iv x2. Trop neg x2. no sig difference of BP measured in RUE and LUE. I ordered CTA chest/ab runthrough. Cardiology was called. 03/25/2018 [facility] Plan of Care No Data Provided for This Section Social History Social History Date Source Social History TypeResponse Substance Abuse Use: None. Alcohol Never Smoking Status Never smoker; Exposure to Tobacco Smoke None; Cigarette Smoking Last 365 Days No; Reg Smoking Cessation Counseling No entered on: 03/22/18 03/23/2018 [facility] Family History No Data Provided for This Section Advance Directives No Data Provided for This Section Functional Status No Data Provided for This Section
--- OUTSIDE RECORDS SUMMARY | 2020-06-10 10:17 | XMS REPORT | Clinical Summary ---
Author Author [facility] [employer] [facility] [place] Organization [facility] Address Unknown Phone Unavailable Care Team Providers Care Finishing Machine Operator Automatic Name Role Phone Florian Eagle MD PCP [phone] Allergies Comments Active Allergy Reactions Severity Noted Date Tachycardia and SOB per pt Amoxicillin 06/02/2013 Fish Containing Products Anaphylaxis High 08/24 Morphine Rash 07/25/2012 Shellfish Containing Anaphylaxis High 8 Products [place] Anaphylaxis High 08/24/2008 Medications End Date Status Medication Sig Dispensed Refills Start Date Active nitroGLYCERIN (NITROSTAT) Place 1 50 tablet 2 0.4 mg sublingual tablet under 2 tabletIndications: Chest tongue every pain 5 minutes as needed for Chest pain. Active blood glucose Use as 1 Kit 0 meterIndications: directed. 4 Elevated fasting glucose Active CPAP DeviceIndications: Use device as 1 Device 0 SARAH (obstructive sleep directed. 6 apnea) Date of Study: 05/2015 Diagnosis: SARAH 327.23 AHI: see sleep study SaO2 roslyn: see sleep study CPAP Pressure: 16 cm H2O with heated humidifier: Yes with mask (fit to patient) and supplies as needed: Yes Chin Strap: No. Active CPAP MaskIndications: SARAH Fit to 1 Device 0 (obstructive sleep apnea) patient. 6 Active CPAP SupplyIndications: Mask (fit to 1 Device 0 0 SARAH (obstructive sleep patient), 6 apnea) tubing & other supplies as needed to treat SARAH.. Active blood glucose test Check twice a 50 Each 3 02/04 stripsIndications: week. 7 Elevated fasting glucose Active lancets (TRUEPLUS Check blood 50 Each 3 02/05/20 1 LANCETS) 28 sugar twice a 7 gaugeIndications: week. Elevated fasting glucose Active hydroCHLOROthiazide Take 1 tablet 30 tablet 0 05/24 (HYDRODIURIL) 25 mg by mouth 7 tabletIndications: daily. Essential hypertension Active Leg Brace (KNEE BRACE by 1 Each 0 07/25 LARGE-XLARGE) Misc.(Non-Félix 7 MiscIndications: Right g; Combo knee pain, unspecified Route) route. chronicity Active azelastine (OPTIVAR) 0.05 Instill 1 6 mL 0 % ophthalmic Drop in each 7 solutionIndications: eye 2 times Environmental allergies daily. Active clotrimazole (LOTRIMIN) 1 Use 2 times 30 mL 11 % external daily on 7 solutionIndications: affected Onychomycosis nails. Active gabapentin (NEURONTIN) Take 1 90 capsule 4 300 mg capsule by 8 capsuleIndications: Acute mouth 3 times pain of left knee daily. Active clotrimazole (LOTRIMIN) 1 Apply to 28.35 g 2 % topical affected area 8 creamIndications: 2 times Medication refill daily. Active gabapentin (NEURONTIN) Take 1 100 capsule 6 400 mg capsule by 8 capsuleIndications: Low mouth 3 times back pain with sciatica, daily. sciatica laterality unspecified, unspecified back pain laterality, unspecified chronicity Active aspirin (ASPIRIN) 81 mg Chew and 30 tablet 6 chewable swallow 1 8 tabletIndications: Right tablet by sided weakness, Essential mouth daily. hypertension, Type 2 diabetes mellitus without complication, without long-term current use of insulin Active isosorbide mononitrate Take 1 and 180 tablet 2 (IMDUR) 60 mg extended 1/2 tablets 8 release by mouth once tabletIndications: a day. Medication refill Active sucralfate (CARAFATE) 100 Take 10 mL by 420 mL 0 mg/mL oral mouth 4 times 9 suspensionIndications: daily. Acute gastric ulcer, unspecified whether gastric ulcer hemorrhage or perforation present Active loratadine (CLARITIN) 10 Take 1 tablet 90 tablet 0 mg tabletIndications: by mouth 9 Viral upper respiratory daily. tract infection with cough Active hydroCHLOROthiazide Take 1 tablet 90 tablet 3 (HYDRODIURIL) 25 mg by mouth 0 tabletIndications: daily. Essential hypertension Active ergocalciferol (VITAMIN Take 1 10 capsule 1 D2) 1,250 mcg (50,000 capsule by 0 unit) capsuleIndications: mouth weekly. Vitamin D deficiency Active albuterol 90 Inhale 2 25.5 g 1 mcg/actuation Puffs by 0 inhalerIndications: mouth 4 times Medication refill daily as needed for Wheezing. 07/07/2020 Active hydroCHLOROthiazide Take 1 tablet 90 tablet 3 0 (HYDRODIURIL) 25 mg by mouth 0 tabletIndications: daily. Essential hypertension Active atorvastatin (LIPITOR) 20 Take 1 tablet 90 tablet 3 mg tabletIndications: by mouth at 0 Pure hypercholesterolemia bedtime nightly For cholesterol. Active amLODIPine (NORVASC) 5 mg Take 1 tablet 90 tablet 3 tabletIndications: by mouth 0 Essential hypertension daily. Active metFORMIN (GLUCOPHAGE XR) Take 1 tablet 90 tablet 3 500 mg ER extended by mouth 0 release daily (with tabletIndications: breakfast). Medication refill Active mometasone (NASONEX) 50 1 [place] by 17 g 0 mcg/actuation nasal each nostril 0 sprayIndications: Nasal route daily. congestion Active ibuprofen (MOTRIN) 600 mg Take 1 tablet 30 tablet 0 tabletIndications: Body by mouth 0 aches every 8 hours as needed for Pain. Active blood glucose Use as 1 Kit 0 meterIndications: directed.. 0 Non-insulin dependent type 2 diabetes mellitus Active lancets 28 Use 2 times 100 Each 3 gaugeIndications: weekly as 0 Non-insulin dependent directed. type 2 diabetes mellitus Active carvediloL (COREG) 25 mg Take 1 tablet 180 tablet 0 tabletIndications: by mouth 0 Medication refill twice a day. Need labs for more refills. Active traMADoL (ULTRAM) 50 mg Take 1 tablet 30 tablet 0 tabletIndications: Pain, by mouth 0 dental, Closed fracture every 6 hours of tooth, initial as needed for encounter Pain. Active amitriptyline (ELAVIL) 10 Take 1 to 2 180 tablet 0 mg tabletIndications: tab by mouth 0 Mild episode of recurrent at bedtime as major depressive needed for disorder, Anxiety insomnia. disorder, unspecified type Active LORazepam (ATIVAN) 0.5 mg Take 1 tablet 30 tablet 1 tabletIndications: by mouth 0 Anxiety disorder, daily as unspecified type needed for Anxiety. Active buPROPion (WELLBUTRIN XL) Take 1 tablet 90 tablet 0 150 mg extended release by mouth 0 tabletIndications: Mild every episode of recurrent morning. major depressive disorder, Anxiety disorder, unspecified type Active escitalopram oxalate Take 1 tablet 90 tablet 0 (LEXAPRO) 20 mg by mouth 0 tabletIndications: Mild daily. episode of recurrent major depressive disorder, Anxiety disorder, unspecified type Active albuterol 90 Inhale 2 8.5 g 0 mcg/actuation Puffs by 0 inhalerIndications: mouth every 4 Dyspnea, unspecified hours as type, Wheezing needed for Wheezing or Shortness of Breath. Active lisinopriL (PRINIVIL) 20 Take 2 180 tablet 0 0 mg tabletIndications: tablets by 0 Medication refill mouth daily Need labs for more refills. Active blood glucose test Use 2 times 50 Each 1 04/06/ 02 stripsIndications: weekly (once 0 Non-insulin dependent per day on type 2 diabetes mellitus Sat,) to test blood sugar. Active codeine-guaiFENesin Take 5 mL by 120 mL 0 05/03 (CHERATUSSIN AC) 10-100 mouth 3 times 0 mg/5 mL syrupIndications: daily as Recurrent dry cough needed for Cough. Active azithromycin (ZITHROMAX) Take 2 6 tablet 0 0 250 mg tabletIndications: tablets by 0 Recurrent dry cough mouth on the first day, then take one tablet every day for the next 4 days. Active montelukast (SINGULAIR) Take 1 tablet 30 tablet 0 10 mg tabletIndications: by mouth at 0 Recurrent dry cough, SOB bedtime (shortness of breath) nightly. Active famotidine (PEPCID) 40 mg Take 1 tablet 90 tablet 0 tabletIndications: by mouth once 0 Medication refill daily 01/12/2020 Discontinued blood glucose Use as 1 Kit 0 meterIndications: directed.. 7 Non-insulin dependent type 2 diabetes mellitus 12/03/2019 Discontinued (Therapy comple bird) meclizine (ANTIVERT) 25 Take 1 tablet 50 tablet 1 mg TabIndications: by mouth 3 7 Hospital discharge times daily follow-up, Vertigo as needed (vertigo). 12/03/2019 Discontinued (Therapy comple bird) loratadine (CLARITIN) 10 Take 1 tablet 30 tablet 0 mg tabletIndications: by mouth 7 Environmental allergies, daily as Hospital discharge needed for follow-up, Vertigo Allergies (or vertigo). 12/03/2019 Discontinued (Therapy comple bird) mometasone (NASONEX) 50 1 [place] by 17 g 0 mcg/actuation nasal each nostril 7 sprayIndications: Viral route daily. URI 09/01/2019 Discontinued (Therapy comple bird) loratadine (CLARITIN) 10 Take 1 tablet 30 tablet 3 mg tabletIndications: by mouth 8 Viral URI daily for cough and nasal congestion. 10/01/2019 Discontinued (Reorder) atorvastatin (LIPITOR) 20 Take 1 tablet 30 tablet 5 mg tabletIndications: by mouth at 8 Pure hypercholesterolemia bedtime nightly For cholesterol. 07/08/2019 Discontinued (Reorder) carvedilol (COREG) 25 mg Take 1 tablet 180 tablet 3 tabletIndications: by mouth 8 Medication refill twice a day. 09/01/2019 Discontinued (Therapy comple bird) HYDROcodone-homatropine Take 2.5 mL 120 mL 0 (HYDROMET) 5-1.5 mg/5 mL by mouth 8 syrupIndications: every 4 hours Laryngitis as needed for Other (cough). 01/10/2020 Discontinued (Reorder) lancets 28 Use 2 times 100 Each 1 gaugeIndications: weekly as 8 Non-insulin dependent directed. type 2 diabetes mellitus 01/10/2020 Discontinued (Reorder) blood glucose test 2 times 50 Each 3 01 stripsIndications: weekly Use 2 8 Non-insulin dependent times weekly type 2 diabetes mellitus (once per day on Mon,Thurs) to test blood sugar. 07/27/2019 Discontinued (Reorder) ergocalciferol (VITAMIN Take 1 10 capsule 1 D2) 50,000 unit capsule by 9 capsuleIndications: mouth weekly. Vitamin D deficiency 07/27/2019 Discontinued (Reorder) metFORMIN (GLUCOPHAGE XR) Take 1 tablet 30 tablet 11 500 mg ER extended by mouth 9 release daily (with tabletIndications: breakfast). Medication refill 10/01/2019 Discontinued (Reorder) albuterol 90 Inhale 2 20.1 g 1 mcg/actuation inhaler Puffs by 9 mouth 4 times daily as needed for Wheezing. 12/03/2019 Discontinued (Therapy comple bird) ciclesonide (ZETONNA) 37 Use 1 [place] 6.1 g 3 0 mcg/actuation nasal HFA in each 9 inhalerIndications: nostril Vertigo daily. 09/01/2019 Discontinued (Therapy comple bird) loratadine (CLARITIN) 10 Take 1 tablet 90 tablet 1 mg tabletIndications: by mouth 9 Seasonal allergic daily. rhinitis due to pollen 09/20/2019 tropicamide (MYDRIACYL) Instill 1 15 mL 0 0.5 % ophthalmic Drop in each 9 solutionIndications: eye once as Elevated hemoglobin A1c needed for up to 1 dose (for poor retina scan image). 10/01/2019 Discontinued (Reorder) escitalopram oxalate Take 1 tablet 30 tablet 5 (LEXAPRO) 20 mg by mouth 9 tabletIndications: MDD daily. (major depressive disorder), recurrent episode, moderate 10/01/2019 Discontinued (Reorder) amLODIPine (NORVASC) 5 mg Take 1 tablet 30 tablet 6 tabletIndications: by mouth 9 Essential hypertension daily. 07/27/2019 Discontinued (Reorder) lisinopril (PRINIVIL) 20 Take 2 60 tablet 6 0 mg tabletIndications: tablets by 9 Medication refill mouth daily. 10/01/2019 Discontinued (Reorder) hydroCHLOROthiazide Take 1 tablet 90 tablet 3 03/23 (HYDRODIURIL) 25 mg by mouth 9 tabletIndications: daily. Essential hypertension 07/27/2019 Discontinued (Reorder) buPROPion (WELLBUTRIN XL) Take 1 tablet 30 tablet 2 150 mg extended release by mouth 9 tabletIndications: MDD every (major depressive morning. disorder), recurrent episode, moderate 07/27/2019 Discontinued (Therapy comple bird) LORazepam (ATIVAN) 0.5 mg Take 1 tablet 60 tablet 1 tabletIndications: MDD by mouth 2 9 (major depressive times daily disorder), recurrent as needed for episode, moderate Anxiety. 07/27/2019 Discontinued (Reorder) amitriptyline (ELAVIL) 10 Take 1 tablet 30 tablet 2 mg tabletIndications: MDD by mouth at 9 (major depressive bedtime disorder), recurrent nightly. episode, moderate 07/27/2019 Discontinued (Therapy comple bird) omeprazole (PRILOSEC) 20 Take 2 60 capsule 0 0 mg delayed release capsules by 9 capsuleIndications: Acute mouth daily. gastric ulcer, unspecified whether gastric ulcer hemorrhage or perforation present 07/27/2019 Discontinued (Therapy comple bird) omeprazole (PRILOSEC) 20 Take 1 11 capsule 0 0 mg delayed release capsule (20 9 capsuleIndications: mg) by mouth Dyspepsia every other day for 2 weeks. Then take 1 capsule by mouth every 4 days for 2 weeks.. 01/11/2020 Discontinued (Reorder) LORazepam (ATIVAN) 0.5 mg Take 1 tablet 60 tablet 0 tabletIndications: by mouth 2 9 Anxiety disorder, times daily unspecified type, as needed for Recurrent major Anxiety. depressive disorder, in partial remission 07/27/2019 Discontinued (Reorder) carvedilol (COREG) 25 mg Take 1 tablet 180 tablet 0 tabletIndications: by mouth 9 Medication refill twice a day. 07/17/2019 benzonatate (TESSALON Take 1 20 capsule 0 06/23 PERLES) 100 mg capsule by 9 capsuleIndications: URI mouth 3 times with cough and congestion daily as needed for up to 7 days for Cough. 07/15/2019 azithromycin (ZITHROMAX) Take 2 6 Each 0 1 250 mg tabletIndications: tablets by 9 URI with cough and mouth on the congestion first day, then take one tablet every day for the next 4 days. 08/01/2019 metroNIDAZOLE (FLAGYL) Take 1 tablet 10 tablet 0 1 500 mg tabletIndications: by mouth 2 9 Vaginal discharge times daily for 5 days. 12/01/2019 Discontinued carvedilol (COREG) 25 mg Take 1 tablet 180 tablet 0 tabletIndications: by mouth 9 Medication refill twice a day. 01/11/2020 Discontinued (Reorder) buPROPion (WELLBUTRIN XL) Take 1 tablet 30 tablet 3 150 mg extended release by mouth 9 tabletIndications: MDD every (major depressive morning. disorder), recurrent episode, moderate 01/11/2020 Discontinued (Reorder) amitriptyline (ELAVIL) 10 Take 1 tablet 30 tablet 2 mg tabletIndications: MDD by mouth at 9 (major depressive bedtime disorder), recurrent nightly. episode, moderate 04/05/2020 Discontinued (Reorder) lisinopriL (PRINIVIL) 20 Take 2 60 tablet 6 1 mg tabletIndications: tablets by 9 Medication refill mouth daily. 10/01/2019 Discontinued (Reorder) metFORMIN (GLUCOPHAGE XR) Take 1 tablet 30 tablet 11 500 mg ER extended by mouth 9 release daily (with tabletIndications: breakfast). Medication refill 10/01/2019 Discontinued (Reorder) ergocalciferol (VITAMIN Take 1 10 capsule 1 D2) 50,000 unit capsule by 9 capsuleIndications: mouth weekly. Vitamin D deficiency 07/30/2019 terconazole (TERAZOL 3) Insert 1 20 g 0 0.8 % vaginal Applicator 9 creamIndications: Vaginal vaginally at discharge bedtime nightly for 3 days. 12/15/2019 Discontinued famotidine (PEPCID) 40 mg Take 1 tablet 30 tablet 3 tabletIndications: by mouth 9 Medication refill daily. 12/03/2019 Discontinued (Therapy comple bird) benzonatate (TESSALON Take one to 40 capsule 0 08/23 PERLES) 100 mg two capsules 9 capsuleIndications: Viral every 8 hours upper respiratory tract as needed for infection with cough cough. CAUTION: may cause drowsiness. 02/11/2020 Discontinued (Therapy comple bird) acetaminophen-codeine Take one 15 tablet 0 08/23 (TYLENOL/CODEINE #3) tablet every 9 300-30 mg per 12 hours as tabletIndications: Acute needed for pain of right knee SEVERE pain not relieved with over the counter Tylenol. 10/04/2019 clindamycin (CLEOCIN HCL) Take 1 30 capsule 0 300 mg capsule by 9 capsuleIndications: mouth 3 times Infection of lip daily for 10 days. 02/11/2020 Discontinued (Reorder) traMADol (ULTRAM) 50 mg Take 1 tablet 30 tablet 0 tabletIndications: Pain, by mouth 9 dental, Closed fracture every 6 hours of tooth, initial as needed for encounter Pain. 10/04/2019 polyethylene glycol Mix 17 grams 225 g 5 10/01 (GLYCOLAX) 17 gram/dose into 4 to 8 0 oral powderIndications: ounces of Constipation, unspecified water, juice, constipation type soda, tea or coffee and drink as directed, one time a day. 11/12/2019 Discontinued (Reorder) atorvastatin (LIPITOR) 20 Take 1 tablet 30 tablet 5 mg tabletIndications: by mouth at 0 Pure hypercholesterolemia bedtime nightly For cholesterol. 11/12/2019 Discontinued (Reorder) amLODIPine (NORVASC) 5 mg Take 1 tablet 30 tablet 6 tabletIndications: by mouth 0 Essential hypertension daily. 01/11/2020 Discontinued (Reorder) escitalopram oxalate Take 1 tablet 30 tablet 5 (LEXAPRO) 20 mg by mouth 0 tabletIndications: MDD daily. (major depressive disorder), recurrent episode, moderate 11/12/2019 Discontinued (Reorder) metFORMIN (GLUCOPHAGE XR) Take 1 tablet 30 tablet 11 500 mg ER extended by mouth 0 release daily (with tabletIndications: breakfast). Medication refill 02/08/2020 Discontinued (Reorder) carvediloL (COREG) 25 mg Take 1 tablet 180 tablet 0 tabletIndications: by mouth 0 Medication refill twice a day. 12/13/2019 Brompheniramine-Pseudoeph Take 10 mL by 120 mL 0 -DM (BROMFED DM) 2-30-10 mouth 4 times 0 mg/5 mL syrupIndications: daily as Viral URI with cough needed for up to 10 days for Allergies, Congestion or Cough. 12/03/2019 Discontinued (Error) clindamycin (CLEOCIN HCL) Take 1 30 capsule 0 300 mg capsule capsule by 0 mouth 3 times daily for 10 days. 12/20/2019 guaiFENesin (DIABETIC Take 10 mL by 120 mL 0 TUSSIN EX) 100 mg/5 mL mouth 3 times 0 syrupIndications: Cough daily as needed for up to 10 days for Cough or Congestion. 06/08/2020 Discontinued famotidine (PEPCID) 40 mg Take 1 tablet 90 tablet 1 tabletIndications: by mouth once 0 Medication refill daily 01/15/2020 Discontinued lancets 28 Use 2 times 100 Each 0 gaugeIndications: weekly as 0 Non-insulin dependent directed. type 2 diabetes mellitus 04/05/2020 Discontinued (Reorder) blood glucose test 2 times 50 Each 0 02 stripsIndications: weekly Use 2 0 Non-insulin dependent times weekly type 2 diabetes mellitus (once per day on Sat,) to test blood sugar. 02/22/2020 Discontinued (Reorder) amitriptyline (ELAVIL) 10 Take 1 tablet 90 tablet 0 mg tabletIndications: by mouth at 0 Mild episode of recurrent bedtime major depressive nightly. disorder, Anxiety disorder, unspecified type 02/22/2020 Discontinued (Reorder) buPROPion (WELLBUTRIN XL) Take 1 tablet 90 tablet 0 150 mg extended release by mouth 0 tabletIndications: Mild every episode of recurrent morning. major depressive disorder, Anxiety disorder, unspecified type 02/22/2020 Discontinued (Reorder) escitalopram oxalate Take 1 tablet 90 tablet 0 (LEXAPRO) 20 mg by mouth 0 tabletIndications: Mild daily. episode of recurrent major depressive disorder, Anxiety disorder, unspecified type 02/22/2020 Discontinued (Reorder) LORazepam (ATIVAN) 0.5 mg Take 1 tablet 60 tablet 0 tabletIndications: by mouth 2 0 Anxiety disorder, times daily unspecified type, as needed for Recurrent major Anxiety. depressive disorder, in partial remission 03/14/2020 predniSONE (DELTASONE) 20 Take 1 tablet 5 tablet 0 mg tabletIndications: by mouth 0 Cough daily for 5 days. 05/03/2020 Discontinued (Therapy comple bird) montelukast (SINGULAIR) Take 1 tablet 30 tablet 0 10 mg tabletIndications: by mouth at 0 Cough bedtime nightly. 03/19/2020 loperamide (SOBA Take 1 30 tablet 0 ANTI-DIARRHEAL) 2 mg capsule by 0 capsuleIndications: mouth 4 times Diarrhea, unspecified daily as type needed for up to 10 days for Diarrhea. 05/03/2020 Discontinued (Reorder) codeine-guaiFENesin Take 5 mL by 120 mL 0 03/09 (CHERATUSSIN AC) 10-100 mouth 3 times 0 mg/5 mL syrupIndications: daily as Cough needed for Cough. 03/14/2020 azithromycin (ZITHROMAX) Take 2 6 Each 0 0 250 mg tabletIndications: tablets by 0 Cough mouth on the first day, then take one tablet every day for the next 4 days. Status Hospital, Clinic, or Ordered Dose Route Frequency Start End Date Other Facility Date Administered Medication Ended ketorolac (TORADOL) 30 mg IM ONCE 09/01/20 injection 30 19 9 mgIndications: Acute pain of right knee Active Problems Problem Noted Date Right sided weakness 07/13/2018 Left thyroid nodule 12/11/2016 MDD (major depressive disorder), recurrent episode, m oderate 06/19/2016 Financial difficulties 12/18/2015 Left-sided thoracic back pain 10/16/2015 SARAH (obstructive sleep apnea) 10/16/2015 Essential hypertension 10/16/2015 Adult BMI 45.0-49.9 kg/sq m 04/14/2015 Bulging lumbar disc 04/14/2015 Anisometropia 01/21/2015 Sleep apnea 01/27/2014 LBP (low back pain) 03/11/2013 Tachycardia 11/20/2012 Adverse drug reaction 11/20/2012 Incidental lung nodule, > 3mm and < 8mm 11/19/2012 Hyperlipidemia 06/02/2012 Abdominal pain, acute, epigastric 03/23/2012 Hypertension 04/23/2007 Overview: treadmill stress test negative h/o Gastric ulcer on meds 09/23/2006 Overview: chronic gastric ulcer - plan EGD 12/04 PUD (peptic ulcer disease) Obesity PUD (peptic ulcer disease) Overview: treated H. pylori, by EGD Type 2 diabetes mellitus without compli cation Dizziness HTN (hypertension) on med Overview: NO CAD, CANCER Dyslipidemia ON MEDS Cerebrovascular accident (CVA) Encounters Care Team Description Date Type Specialty Florian Eagle MD Medications 06/06/2020 Refill Family Practice Bala Saha MD Recurrent dry cough (Primary Dx); Cough; SOB (shortness of breath) 05/03/2020 Telephonic Family Practice Encounter Robb Santiago MD 04/18/2020 E-Visit Family Practice Florian Eagle MD Medications 04/15/2020 Refill [facility] Florian Eagle MD Medications 04/05/2020 Refill Family Practice Cynthia Sterling PA Cough (Primary Dx); Dyspnea, unspecified type; Wheezing; Diarrhea, unspecified type 03/09/2020 Telephonic [facility] Encounter Cherelle Williamson MD Mild episode of recurrent major depressi ve disorder (Primary Dx); Anxiety disorder, unspecified type 02/22/2020 Telephonic Psychiatry Encounter Florian Eagle MD Medications 02/11/2020 Orders Only Family Practice Florian Eagle MD Patient left without being seen (Primary Dx) 02/08/2020 Telephonic [facility] Encounter Florian Eagle MD Medications 02/08/2020 Refill Family Practice Florian Eagle MD Medications 02/08/2020 Refill [facility] 02/08/2020 E-Visit Florian Eagle MD Medications 01/15/2020 Refill Family Practice Florian Eagle MD Medications 01/12/2020 Refill [facility] Cherelle Williamson MD Mild episode of recurrent major depressi ve disorder (Primary Dx); Anxiety disorder, unspecified type; Recurrent major depressive disorder, in partial remission 01/11/2020 Telephonic Psychiatry Encounter Florian Eagle MD Medications 01/10/2020 Refill Family Practice Chelsea Ledezma, PATRICA 12/20/2019 Nurse Triage Florian Eagle MD Cough 12/14/2019 Ancillary Radiology Procedure Florian Eagle MD Medications 12/13/2019 Refill Family Practice Hurtado-Florian Wade MD Telufusi, Abimbola R, PA Cough (Primary Dx) 12/10/2019 Office Visit [facility] Lucretia Patrick PA Viral URI with cough (Primary Dx); Nasal congestion; Body aches 12/03/2019 Office Visit [facility] Florian Eagle MD Medications 12/01/2019 Refill [facility] Florian Eagle MD Medications 11/12/2019 Orders Only [facility] Florian Eagle MD Medications 10/29/2019 Refill [facility] Cherelle Williamson MD Medications 10/29/2019 Refill Psychiatry Florian Eagle MD Essential hypertension (Primary Dx); Pure hypercholesterolemia; MDD (major depressive disorder), recurrent episode, moderate; Medication refill; Vitamin D deficiency; Closed fracture of tooth with routine healing, subsequent encounter; Constipation, unspecified constipation type; Breast screening; Morbid obesity with BMI of 45.0-49.9, adult 10/01/[address] [facility] Florian Eagle MD 10/01/2019 Orders Only [facility] Cynthia Sterling PA Infection of lip (Primary Dx); Pain, dental; Closed fracture of tooth, initial encounter 09/18/[address] [facility] Cynthia Sterling PA 09/18/[address] [facility] Jayy George RN 09/02/2019 Nurse Triage Florian Eagle MD 09/01/2019 Ancillary Radiology Procedure Leandra Holman NP Acute pain of right knee (Primary Dx); Essential hypertension; Need for influenza vaccination; Viral upper respiratory tract infection with cough 09/01/2019 Same Day [facility] Abi Jose, RN 08/10/2019 Nurse Triage Florian Eagle MD Vaginal discharge; Diabetes mellitus type 2, noninsulin dependent 07/28/2019 Lab Appointment Lab Florian Eagle MD Right wrist pain 07/28/2019 Ancillary Radiology Procedure Florian Eagle MD Diabetes mellitus type 2, noninsulin dep endent (Primary Dx); Medication refill; MDD (major depressive disorder), recurrent episode, moderate; Vitamin D deficiency; Right wrist pain; Vaginal discharge 07/27/2019 Office Visit Family Practice Randa Farnsworth MD No diabetic retinopathy in both eyes (Pr imary Dx); Anisometropic amblyopia of right eye; Astigmatism of both eyes with presbyopia 07/20/2019 Office Visit Ophthalmology Cynthia Sterling PA URI with cough and congestion (Primary D x) 07/09/2019 Office Visit Family Practice Florian Eagle MD Medications 07/08/2019 Refill Family Practice Cherelle Williamson MD Anxiety disorder, unspecified type (Prim korey Dx); Recurrent major depressive disorder, in partial remission 06/09/2019 Office Visit Psychiatry after 06/09/2019 Immunizations Name Administration Dates Next Due Influenza Vac (Fluarix) 10/20/2015 Influenza Vaccine 09/19/2017 (Deferred: Contr aindication), 08/13/2017 (Deferred: Patient Refused), 06/26/2017 (Deferred: Other - pt stated not feelin g well -- will rtc ), 10/11/2016, 08/27/2014 Influenza, Vaccine 07/13/2018 <FLUCELVAX>(Preservative- Free) Influenza, 09/01/2019 Vaccine<FLUCELVAX>(Multi- Dose) PPV 23 Pneumococcal 08/27/2014 Polysaccaride Pneumococcal 13-valent 10/11/2016 conj 0.5 mL injection Tdap Tetanus, diphtheria, 05/14/2012 acellular pertussis Vaccine Family History Medical History Relation Name Comments Hypertension Father decreased Stroke Father Cancer Maternal Aunt Diabetes Mother decreased age 63 Heart Mother Hypertension Mother age 63 Cancer Paternal Grandmother Cancer Sister Relation Name Status Comments Brother Alive Father Stroke.. Staff infe ction (Age 86) Maternal Aunt Maternal Grandfather Maternal Grandmother Mother Renal failure (Age 63) Paternal Grandfather Paternal Grandmother Sister Alive x2 Sister Social History Date Tobacco Use Types Packs/Day Years Used Never Smoker Smokeless Tobacco: Never Used Tobacco Cessation: Counseling Given: No Drinks/Week oz/Week Comments Alcohol Use 1 Standard drinks or equivalent 1.0 Social only No Food Insecurity Answer Date Recorded Within the past 12 months, you worried that your Never jonn e 04/05/2017 food would run out before you got money to buy more. Within the past 12 months, the food you bought Never true 04/05/2017 just didn't last and you didn't have mo mikhail to get more. Sex Assigned at Date Recorded Not on file Industry Job Start Date Occupation Not on file Not on file Not on file Travel End Travel History Travel Start No recent travel history available. Last Filed Vital Signs Reading Time Taken Comments Vital Sign 147/95 12/10/2019 5:43 PM CDT Blood Pressure 73 12/10/2019 5:43 PM CDT Pulse 37 C (98.6 F) 12/10/2019 5:24 PM CDT Temperature 18 12/10/2019 5:24 PM CDT Respiratory Rate 98% 12/10/2019 5:24 PM CDT Oxygen Saturation - - Inhaled Oxygen Concentration 129.3 kg (285 lb) 12/10/2019 5:24 PM CDT Weight 162.6 cm (5' 4") 12/10/2019 5:24 PM CDT Height 48.92 12/10/2019 5:24 PM CDT Body Mass Index Plan of Treatment Health Maintenance Due Date Last Done Comments Cervical Cancer Scrn (3 06/01/2019 06/01/2016 Yrs) (Previously completed - External), 05/14/2012 Breast Cancer Scrn 11/04/2019 11/04/2018, (Yearly) 04/23/2017, 10/12/2016, Additional history exists Colorectal Cancer Scrn 12/20/2019 12/19/2018, Annual (FIT/FOBT) Age 48 03/28/2017 to 73 DM Foot Exam (Yearly) 04/21/2020 04/21/2019, 03/24/2019, 11/03/2018, Additional history exists DM Retinal Exam (Yearly) 07/20/2020 07/20/2019, 02/19/2018, 02/26/2017, Additional history exists DM HGBA1C (Yearly) 07/28/2020 07/28/2019, 03/25/2019, 11/03/2018, Additional history exists Goals Goal Patient Associated Recent Progress Patient-Stat Aut hor Goal Type Problems ed? Weight (lb) < 261 lb (118.4 Weight 129.3 kg (285 lb) Lynda Mahoney kg) (12/10/2019 5:24 PM FILIPE Alex CDT) Procedures Comments Procedure Name Priority Date/Time Associated Diag nosis XRAY CHEST 2 VIEWS Routine 12/14/2019 Cough 1:23 PM CDT XRAY KNEE 3 VIEWS Routine 09/01/2019 Acute pain o f right knee (ROUTINE W/ WT BEARING 11:32 AM REHABILITATION PROGRAM COORDINATOR AP/LAT/SUN) MICROALBUMIN / CREATININE Routine 07/28/2019 Diab etes mellitus type 2, URINE RATIO 12:01 PM REHABILITATION PROGRAM COORDINATOR noninsulin dependen t CHLAM/GC DNA AMPLI Routine 07/28/2019 Vaginal dis charge 12:01 PM REHABILITATION PROGRAM COORDINATOR LIPID PROFILE Routine 07/28/2019 Diabetes mellit us type 2, 9:41 AM REHABILITATION PROGRAM COORDINATOR noninsulin dependent HEMOGLOBIN A1C Routine 07/28/2019 Diabetes mellit us type 2, 9:41 AM REHABILITATION PROGRAM COORDINATOR noninsulin dependent XRAY HAND 3 VIEWS MIN Routine 07/28/2019 Right wr ist pain 9:05 AM REHABILITATION PROGRAM COORDINATOR XRAY WRIST 3 VIEWS MIN Routine 07/28/2019 Right w rist pain 9:05 AM REHABILITATION PROGRAM COORDINATOR after 06/09/2019 Results * XRAY CHEST 2 VIEWS (12/14/2019 1:23 PM CDT) Specimen Impressions Performed At IMPRESSION: [facility] No acute thoracic abnormality. Dictated By: Jose Noble MD, 12/14/2019 1 :27 PM I have reviewed the study and agree wit h the findings in this report. Signed By: Marquita Walker MD, 12/14/2019 1:35 PM Narrative Performed At EXAMINATION: XRAY CHEST 2 VIEWS SMS INDICATION: cough x 1 week COMPARISON: Chest radiograph 8, chest CT 11/20/2017 FINDINGS: TUBES and LINES: None. LUNGS: Lungs are well inflated. Lay gs are clear. There is no evidence of pneumonia or pulmonary jim a. PLEURA: No pleural effusion or pneumo thorax. HEART AND MEDIASTINUM: The cardiomedi astinal silhouette is unremarkable. BONES AND SOFT TISSUES: There are deg enerative changes in the thoracic spine. Soft tissues are unremarkable. UPPER ABDOMEN: No free air under the di aphragm. Procedure Note Interface, Rad/Mammog In - 12/14/2019 1:40 PM CDT EXAMINATION: XRAY CHEST 2 VIEWS INDICATION: cough x 1 week COMPARISON: Chest radiograph 03/17/2018, chest CT 11/20/2017 FINDINGS: TUBES and LINES: None. LUNGS: Lungs are well inflated. Lungs are clear. There is no evidence of pneumonia or pulmonary edema. PLEURA: No pleural effusion or pneumothorax. HEART AND MEDIASTINUM: The cardiomediastinal silhouette is unremarkable. BONES AND SOFT TISSUES: There are degenerative changes in the thoracic spine. Soft tissues are unremarkable. UPPER ABDOMEN: No free air under the diaphragm. IMPRESSION IMPRESSION: No acute thoracic abnormality. Dictated By: Jose Noble MD, 12/14/2019 1:27 PM I have reviewed the study and agree with the findings in this report. Signed By: Marquita Walker MD, 12/14/2019 1:35 PM Performing Organization Address City/State/Zipcode Ph one Number SMS * XRAY KNEE 3 VIEWS (ROUTINE W/ WT BEARING AP/LAT/SUN) (09/01/2019 11:32 AM REHABILITATION PROGRAM COORDINATOR) Specimen Impressions Performed At IMPRESSION: [facility] Tricompartmental osteoarthrosis with Ke llgren-Wes grade 3, moderate osteoarthrosis of the right knee medial compartment(s). Dictated By: Isabel Hutchinson MD, 09/01/2019 3:19 PM I have reviewed the study and agree wit h the findings in this report. Signed By: Arnoldo Smith MD, 09/01/2019 3 :27 PM Narrative Performed At EXAM: X-ray right knee, 3 weight-bearing views SMS INDICATION: right knee pain/ swelling s /p trauma COMPARISON: Knee radiographs from 017 DISCUSSION: Right knee: Moderate medial compartment and mild la teral compartment joint space narrowing. Moderate osteophyte proliferation, with the medial greater than the lateral compartment. Moderate joint space narrowing and oste ophytosis of the patellofemoral compartment. No acute fracture or dislocation. No joint effusion(s). The soft tissues are otherwise unremark able. Procedure Note Interface, Rad/Mammog In - 09/01/2019 3:32 PM REHABILITATION PROGRAM COORDINATOR EXAM: X-ray right knee, 3 weight-bearing views INDICATION: right knee pain/ swelling s/p trauma COMPARISON: Knee radiographs from 02/26/2017 DISCUSSION: Right knee: Moderate medial compartment and mild lateral compartment joint space narrowing. Moderate osteophyte proliferation, with the medial greater than the lateral compartment. Moderate joint space narrowing and osteophytosis of the patellofemoral compartment. No acute fracture or dislocation. No joint effusion(s). The soft tissues are otherwise unremarkable. IMPRESSION IMPRESSION: Tricompartmental osteoarthrosis with Kellgren-Wes grade 3, moderate osteoarthrosis of the right knee medial compartment(s). Dictated By: Isabel Hutchinson MD, 09/01/2019 3:19 PM I have reviewed the study and agree with the findings in this report. Signed By: Arnoldo Smith MD, 09/01/2019 3:27 PM Performing Organization Address [facility] one Number SMS * Microalbumin / Creatinine Urine Ratio (07/28/2019 12:01 PM REHABILITATION PROGRAM COORDINATOR) Pathologist [facility] Microalbumin, 0.8 <30.0 mg/dL [facility] Creatinine, 176 20 - 320 mg/dL [facility] Urine 4.5 0.0 - 30.0 mg/g [facility] Microalbumin [facility] Specimen Urine - Voided, urine Performing Organization [facility] one Number [facility] [address] [place] [address] * Chlam/Gc DNA Ampli (07/28/2019 12:01 PM REHABILITATION PROGRAM COORDINATOR) Pathologist [facility] Chlamydia Negative Negative [facility] trachomatis LAB[facility]AT[facility] N. gonorrhoeae Negative Negative [facility] Specimen Urine - Voided, urine Narrative Performed At This test utilizes TopDeejays Aptima Combo 2 Assay for target amplification of rRNA [facility] for the qualitative detection of Chlamy ivone trachomatis and Neisseria gonorrhoeae. Performing Organization Address [facility] one Number [facility] [address] [place] [address] [phone] * Hemoglobin A1C (07/28/2019 9:41 AM REHABILITATION PROGRAM COORDINATOR) Hemoglobin A1c 6.2 (H) 4.3 - 6.1 % [facility] Estimated 131 (H) 70 - 110 mg/dL [facility] Average Glucose LABORATORY Specimen Blood Performing Organization [facility] one Number [facility] [address] [place] [address] * Lipid Profile (07/28/2019 9:41 AM REHABILITATION PROGRAM COORDINATOR) Cholesterol 196.0 <=200.0 mg/dL [facility] Triglyceride 174 (H) <150 mg/dL [facility] HDL 35.0 See Reference Range [facility] Narrative. mg/dL LAB[facility]ATORY LDL 126 (H) <100 mg/dL [facility] Comment: [facility] Optimal: < 100.0 mg/dL Near Optimal: 120-129 mg/dL Borderline: 130-159 mg/dL High: 160-189 mg/dL Very High: >=190 mg/dL Patient NoComment: Drank coffee with [facility] Fasting? cream and sugar LABORATORY Specimen Blood Narrative Performed At Patient is not fasting. For a triglyceride result gre ater than 440 mg/dL, [facility] consider re-testing when the patient is in a fasting state. Performing Organization Address [facility] one Number [facility] [address] [place] [address] * XRAY HAND 3 VIEWS MIN (07/28/2019 9:05 AM REHABILITATION PROGRAM COORDINATOR) Specimen Impressions Performed At IMPRESSION: [facility] Scattered degenerative change. No osseo us erosion Dictated By: Jovon Nguyễn MD, 07/28/2019 9:21 AM I have reviewed the study and agree wit h the findings in this report. Signed By: Arnoldo Smith MD, 07/28/2019 11 :12 AM Narrative Performed At EXAMINATION: XRAY HAND 3 VIEWS MIN, XRAY WRIST 3 VIEW S MIN SMS SIDE: Right INDICATION: hand pain COMPARISON: Right thumb radiograph 10/12 FINDINGS: BONE: No acute fracture. JOINTS: Scattered degenerative change. No osseo us erosion SOFT TISSUES: Normal. Procedure Note Interface, Rad/Mammog In - 07/28/2019 11:17 AM REHABILITATION PROGRAM COORDINATOR EXAMINATION: XRAY HAND 3 VIEWS MIN, XRAY WRIST 3 VIEWS MIN SIDE: Right INDICATION: hand pain COMPARISON: Right thumb radiograph 10/12/2014 FINDINGS: BONE: No acute fracture. JOINTS: Scattered degenerative change. No osseous erosion SOFT TISSUES: Normal. IMPRESSION IMPRESSION: Scattered degenerative change. No osseous erosion Dictated By: Jovon Nguyễn MD, 07/28/2019 9:21 AM I have reviewed the study and agree with the findings in this report. Signed By: Arnoldo Smith MD, 07/28/2019 11:12 AM Performing Organization Address [facility]/Zipcode Ph one Number SMS * XRAY WRIST 3 VIEWS MIN (07/28/2019 9:05 AM REHABILITATION PROGRAM COORDINATOR) Specimen Impressions Performed At IMPRESSION: [facility] Scattered degenerative change. No osseo us erosion Dictated By: Jovon Nguyễn MD, 07/28/2019 9:21 AM I have reviewed the study and agree wit h the findings in this report. Signed By: Arnoldo Smith MD, 07/28/2019 11 :12 AM Narrative Performed At EXAMINATION: XRAY HAND 3 VIEWS MIN, XRAY WRIST 3 VIEW S MIN SMS SIDE: Right INDICATION: hand pain COMPARISON: Right thumb radiograph 10/12 FINDINGS: BONE: No acute fracture. JOINTS: Scattered degenerative change. No osseo us erosion SOFT TISSUES: Normal. Procedure Note Interface, Rad/Mammog In - 07/28/2019 11:17 AM REHABILITATION PROGRAM COORDINATOR EXAMINATION: XRAY HAND 3 VIEWS MIN, XRAY WRIST 3 VIEWS MIN SIDE: Right INDICATION: hand pain COMPARISON: Right thumb radiograph 10/12/2014 FINDINGS: BONE: No acute fracture. JOINTS: Scattered degenerative change. No osseous erosion SOFT TISSUES: Normal. IMPRESSION IMPRESSION: Scattered degenerative change. No osseous erosion Dictated By: Jovon Nguyễn MD, 07/28/2019 9:21 AM I have reviewed the study and agree with the findings in this report. Signed By: Arnoldo Smith MD, 07/28/2019 11:12 AM Performing Organization Address City/State/Zipcode Ph one Number SMS after 06/09/2019 Insurance Type Payer Benefit Subscriber ID Effective Phone Address Plan / Dates Group [facility] xxxxxxxxx 2019-5 [address] MEDICARE MEDICARE [id number] [place] [address] [facility] PLAN FINANCIAL xxxxxx 2019 [id number] [facility] [address] [place] [address] Advance Directives Date Inactivated Comments Code Status Date Activated 07/16/2018 6:17 PM Full Code 07/13/2018 4:06 PM 10/24/2015 5:56 PM Full Code 10/17/2015 10:59 AM 10/17/2015 10:59 AM Full Code 10/17/2015 1:57 AM 11/21/2012 2:56 PM Full Code 11/19/2012 6:37 PM 03/23/2012 11:34 PM Full Code 03/23/2012 7:45 AM
--- OUTSIDE RECORDS SUMMARY | 2020-06-10 10:18 | XMS REPORT | Continuity of Care Document ---
Author Author [facility] t Organization [facility] Address [address] [place] [id number] Phone Unavailable Care Team Providers Care Cold Roll Inspector Name Role Phone NONSTAFF PCP Unavailable ELISA LAROSE Attphys Unavailable Fco ESQUEDA, Florian Attphys [phone] Christiano Saha MD, Bala Attphys Jack ESQUEDA, Aye Zamudio Attphys Rosio Carpio MD Attphys Scarlet Mast Cynthia Attphys Clay ESQUEDA, Oswaldo Villarreal Attphys Doctor, [facility] Attphys Unavailable Brisa BURCIAGA, Lou Tran Attphys Unavailable Scarlet Newton Lucretia Attphys Cruz Sanders RN, Attphys Unavailable Manda QUALITY MEASUREMENT SPECIALIST, Leandra Attphys Damon BURCIAGA, Oswaldo Alex Attphys Unavailable Candelaria Farnsworth MD Attphys MIS CARRERO Attphys Unavailable Kristian Landrum Attphys Yanira Harris Attphys Ree Leo Lindsey Admphys Payers Payer Name Policy Type Policy Number Effective Date Expiration Date S petey [facility] [id number] 2020 00:00:00 [facility] [id number] 2019 00:00:00 2019 00:00:[address] [facility] UNITED HEALTHCARE MEDICAREUHC MEDICARE [id number]/[id number] [address] xxxxxxxxx 2019 00:00:00 2020 23:59:59 [facility] PLANFINANCIAL ASSISTANCE PROGRAMxxx [id number] [place] [address] xxxxxx 2019 00:00:00 06-22 23:59:59 [facility] MEDICARE MGD CAREUNITED MEDICARE HMOxxxxxxxxx xxxxxxxxx [facility] MEDICAIDMEDICAID OF [place]xxxxxxxxxMedicaid xxxxxxxxx [facility] Problems Condition Name Condition Details Condition Category Status Onset Date Resolution Date Last Treatment Date Treating Clinician Comments Source Right sided weakness Right sided weakness Disease Active 00:00:00 [facility] CHEST PAIN CHES T PAIN Active 03/22/2018 [facility] Diagnosis Active 2018-03-22 00:00:00 2018-09-26 08:33:00 Bradley Metz Left thyroid nodule Left thyroid nodule Disease Active 2016-12-11 00:00 :00 [facility] SOB SOB Active 08/18/2016 [facility] Diagnosis Active 2016-08-18 00:00:00 2016-08-18 14:27:00 Bradley Metz MDD (major depressive disorder), recurrent episode, mo derate MDD (major depressive disorder), recurrent episode, moderate Disease Active 2016-06-19 00:00:00 [facility] Financial difficulties Financial difficulties Disease Active 2015-12-18 00:00:00 [facility] Left-sided thoracic back pain Left-sided thoracic back pain Disease Active 2015-10-16 00:00:00 [facility] SARAH (obstructive sleep apnea) SARAH (obstructive sleep apnea) Disease Active 2015-10-16 00:00:00 [facility] Essential hypertension Essential hypertension Disease Active 2015-10-16 00:00:00 [facility] Adult BMI 45.0-49.9 kg/sq m Adult BMI 45.0-49.9 kg/sq m Disease Active 2015-04-14 00:00:00 [facility] Bulging lumbar disc Bulging lumbar disc Disease Active 2015-04-14 00:00 :00 [facility] Anisometropia Anisometropia Disease Active 2015-01-21 00:00:00 [facility] Sleep apnea Sleep apnea Disease Active 2014-01-27 00:00:00 [facility] LBP (low back pain) LBP (low back pain) Disease Active 2013-03-11 00:00 :00 [facility] Tachycardia Tachycardia Disease Active 2012-11-20 00:00:00 [facility] Adverse drug reaction Adverse drug reaction Disease Active 11-23-27 00:00:00 [facility] Incidental lung nodule, > 3mm and < 8mm Incidental lung nodu le, > 3mm and < 8mm Disease Active 2012-11-19 00:00:00 [facility] Hyperlipidemia Hyperlipidemia Disease Active 2012-06-02 00:00:00 [facility] Abdominal pain, acute, epigastric Abdominal pain, acute, epigast sanjana Disease Active 2012-03-23 00:00:[address] [facility] HYPERTENSIVE URGENCY HYPE RTENSIVE URGENCY Active 03/16/2012 [facility] Diagnosis Active 2012-03-16 00:00:00 2012-03-16 21:24:00 [facility] CHEST PAIN/RIGHT SIDED NECK PAIN CHEST PAIN/RIGHT SIDED NECK PAIN Active 11/28/2011 [facility] Diagnosis Active 2011-11-28 00:00:00 2011-11-28 19:09:00 [facility] VOMITING VOMI TING Active 06/22/2011 [facility] Diagnosis Active 2011-06-22 00:00:00 2011-06-22 14:57:00 [facility] Gastric ulcer on meds h/o Gastric ulcer on meds Disease Ac tive 2006-09-23 00:00:00 Overview: chronic gastric ul cer - plan EGD 12/04 [facility] Acute bronchitis Problem Active [facility] Dyspnea Problem Active [facility] Chest pain, unspecified Ches t pain, unspecified 03/28/2018 [facility] Problem 2018-03-28 02:15:14 [facility] Chest pain Ches t pain Inactive Problem 03/19/2012 [facility] Problem Inactive 2012-03-19 08:57:57 [facility] Abdominal pain (finding) Abdo lisa pain (finding) Active Problem 03/28/2018 [facility] Problem Active 2018-03-28 02:15:14 [facility] Chest pain (finding) Ches t pain (finding) Active Problem 03/28/2018 [facility] Problem Active 2018-03-28 02 :15:14 [facility] Headache (finding) Head ache (finding) Active Problem 03/28/2018 [facility] Problem Active 2018-03-28 02 :15:14 [facility] Nausea and vomiting (disorder) Nausea and vomiting (disorder) Active Problem 03/28/2018 [facility] Problem Active 2018-03-28 02:15:14 [facility] Abdominal pain Abdo lisa pain Active Problem 03/19/2012 [facility] Problem Active 2012-03-19 08:57:57 [facility] Headache Head ache Active Problem 03/19/2012 [facility] Problem Active 2012-03-19 08:57:57 [facility] [place] Nausea and vomiting Naus ea and vomiting Active Problem 03/19/2012 [facility] Problem Active 2012-03-19 08 :57:57 [facility] CHEST PAIN NOS CHES T PAIN NOS Active [facility] Diagnosis Active 2011-11-28 19:09:00 [facility] HYPERTENSION NOS HYPE RTENSION NOS Active [facility] Diagnosis Active 2012-03-16 21:24:00 [facility] CHEST PAIN, UNSPECIFIED CHES T PAIN, UNSPECIFIED Active [facility] Diagnosis Active 2018-09-26 08:33:00 [facility] Obesity Obesity Disease Active [facility] PUD (peptic ulcer disease) PUD (peptic ulcer disease) Disease Active Overview: treated H. pylori, by EGD [facility] Type 2 diabetes mellitus without complication Type 2 d iabetes mellitus without complication Disease Active [facility] th Dizziness Dizziness Disease Active [facility] HTN (hypertension) on med HTN (hypertension) on med Disease Active Overview: NO CAD, CANCER [facility] Dyslipidemia ON MEDS Dyslipidemia ON MEDS Disease Active [facility] Cerebrovascular accident (CVA) Cerebrovascular accident (CVA) Disease Active [facility] Discharge Diagnosis: Cough Dis charge Diagnosis: Cough 08/18/2016 08/21/2016 [facility] Problem 2015 06:00:00 2016-08-21 01:45:33 2016-08-21 01:45:33 [facility] Allergies, Adverse Reactions, Alerts Allergy Name Allergy Type Status Severity Reaction(s) Onset Date Inacti ve Date Treating Clinician Comments Source Morphine Allergy to substance Active 2020-06-09 00:00:[address] [facility] GREEN COUGH MEDICINE Allergy to substance Active 2020-06-09 00:00:[address] [facility] Amoxicillin Propensity to adverse reactions Active 2012 00:00:00 Tachycardia and SOB per pt [facility] Amoxicillin Propensity to adverse reactions to drug Active 2013-06-02 00:00:00 Tachycardia and SOB per pt [facility] Morphine Propensity to adverse reactions [facility] 2012[facility]07 00:00:00 Other reaction(s): Rash [facility] Morphine Propensity to adverse reactions to drug Active Rash 2012-07-25 00:00:00 [facility] morphine morphine Active Mild 2011-11-22 00:00:00 [facility] Fish Containing Products FA Active U 2009-05-20 00:00:00 [facility] No Known Drug Intolerances DA Active U 2009-04-17 00:00:0 0 [facility] strawberry FA Active SV 2009-04-17 00:00:00 [facility] Shellfish Containing Products Propensity to adverse reactions Activ e Anaphylaxis 2008-08-24 00:00:00 [facility] [place] Propensity to adverse reactions Active Anap hylaxis 2008-08-24 00:00:00 [facility] Fish Containing Products Propensity to adverse reactions to drug Ac tive Anaphylaxis 2008-08-24 00:00:00 Moustapha salda[facility] Shellfish Containing Products Propensity to adverse reactions to dr ug Active Anaphylaxis 2008-08-24 00:00:00 Moustapha saldaña [place] Propensity to adverse reactions to drug Active Anaphylaxis 2008-08-24 00:00:00 [facility] [place] [facility] amoxicillin amoxicillin Active [facility] Food Shellfish Food Shellfish Active [facility] Food Strawberries Food Strawberries Active [facility] Family History Family Member Diagnosis Comments Start Date Stop Date Source Natural father Hypert[facility] Natural father Stroke [facility] Maternal aunt Cancer [facility] Natural mother Diabetes [facility] Natural mother Heart [facility] Natural mother Hypertension [facility] Paternal grandmother Cancer [facility] Social History Social Habit Start Date Stop Date Quantity Comments Source History SDOH Alcohol Std Drinks [facility] History SDOH Alcohol Binge [facility] Sex Assigned At [facility] Alcohol intake 2020-03-09 00:00:00 2020-03-09 00:00:00 Current non-drinker of alcohol (finding) [facility] SDOH Alcohol Frequency 2018-10-22 00:00:00 2018-10-22 00:00:0 0 1 [facility] Social History 2018-03-23 04:29:03 2018-03-23 04:29:03 [facility] History SDOH Food Worry 2017-04-05 00:00:00 2017-04-05 00:00:00 1 [facility] SDOH Food Scarcity 2017-04-05 00:00:00 2017-04-05 00:00:00 1 [facility] Alcohol Comment 2012-03-23 00:00:00 2012-03-23 00:00:00 Social only [facility] Smoking Status Start Date Stop Date Source Never smoker [facility] Medications Ordered Medication Name Filled Medication Name Start Date Stop Da te Current Medication? Ordering Clinician Indication Dosage Frequency Signature (SIG) Comments Components Source Benzonatate (Tessalon Perle) 100 Mg CAPSULE Benzonatat e (Tessalon Perle) 100 Mg CAPSULE 2020-06-09 09:24:00 Yes 1 Three Times A Da y [facility] Prednisone Prednisone 2020-06-09 09:22:00 Yes [address] [facility] Cefdinir (Omnicef) 300 Mg CAPSULE Cefdinir (Omnicef) 300 Mg CAPSULE 2020-06-09 09:20:00 Yes 300 Tw[address] A Day [facility] Metoprolol Tartrate Metoprolol Tartrate 2020-06-09 09:20:00 2020-05 00:00:00 No 50 Twice A Day [facility] famotidine (PEPCID) 40 mg tablet 2020-06-08 00:00:00 Yes Medication refill Take 1 tablet by mouth once daily [facility] codeine-guaiFENesin (CHERATUSSIN AC) 10-100 mg/5 mL syrup 2020-05-03 00:00:00 Yes Recurrent dry cough 5mL Take 5 mL by mouth 3 times daily as needed for Cough. [facility] azithromycin (ZITHROMAX) 250 mg tablet 2020-05-03 00:00:00 Yes Recurrent dry cough Take 2 tablets by mo ut on the first day, then take one tablet every day for the next 4 days. [facility] montelukast (SINGULAIR) 10 mg tablet 2020-05-03 00:00:00 Yes SOB (shortness of breath) 10mg Take 1 tablet by mouth at bedtime ni leonardo. [facility] lisinopriL (PRINIVIL) 20 mg tablet 2020-04-06 00:00:00 Yes Medication refill 40mg QD Take 2 tablets by mouth daily Need labs for mor e refills. [facility] blood glucose test strips 2020-04-06 00:00:00 Yes Non-insulin dependent type 2 diabetes mellitus Use 2 times wee klfran (once per day on Sat,) to test blood sugar. [facility] ibuprofen (ADVIL,MOTRIN) 600 MG tablet 2020-03-17 00:00:00 Yes 600mg Take 1 tablet (600 mg total) by mouth every 6 (six) hours as needed for Pain for up to 20 doses. [facility] fluticasone propionate (FLONASE) 50 mcg/actuation nasal spra y 2020-03-17 00:00:00 2021-03-17 23:59:00 Yes 1{spray} QD 1 spray by Nasal route daily. [facility] AZITHRO[facility] (ZITHROMAX) 250 MG tablet 2020-02-23 5 00:00:00 2020-03-22 23:59:00 No 250mg QD Take 1 tablet (250 mg total) by mouth daily for 5 days Take first 2 tablets together, then 1 every day until finished.. [facility] albuterol 90 mcg/actuation inhaler 2020-03-09 00:00:00 Y es Wheezing 2{puff} Inhale 2 Puffs by mouth ever y 4 hours as needed for Wheezing or Shortness of Breath. [facility] montelukast (SINGULAIR) 10 mg tablet 2020-03-09 00:00: 00 2020-05-03 00:00:00 No Cough 10mg Take 1 tablet by mouth at bedtime nightl y. [facility] codeine-guaiFENesin (CHERATUSSIN AC) 10-100 mg/5 mL syrup 2020-03-09 00:00:00 2020-05-03 00:00:00 No Cough 5mL Take 5 mL by mouth 3 times daily as needed for Cough. [facility] loperamide (SOBA ANTI-DIARRHEAL) 2 mg capsule 20 12-03-17 00:00:00 2020-03-19 23:59:00 No Diarrhea, unspecified type 2mg Take 1 capsule by mouth 4 times daily as needed for up to 10 days for Diarrhea. [facility] predniSONE (DELTASONE) 20 mg tablet 2020-03-09 00:00:0 0 2020-03-14 23:59:00 No Cough 20mg QD Take 1 tablet by mouth daily for 5 days. [facility] azithromycin (ZITHROMAX) 250 mg tablet 2020-02-22 7 00:00:00 2020-03-14 23:59:00 No Cough Take 2 tablets by mouth on the first day, then take one tablet every day for the next 4 days. [facility]th amitriptyline (ELAVIL) 10 mg tablet 2020-02-22 00:00:00 Yes Anxiety disorder, unspecified type Take 1 to 2 t ab by mouth at bedtime as needed for insomnia. [facility] LORazepam (ATIVAN) 0.5 mg tablet 2020-02-22 00:00:00 Yes Anxiety disorder, unspecified type .5mg Take 1 tablet by mouth daily as needed fo r Anxiety. [facility] buPROPion (WELLBUTRIN XL) 150 mg extended release tablet 2020-02-22 00:00:00 Yes Anxiety disorder, unspecified type 150mg Take 1 tablet by mouth every morning. [facility] escitalopram oxalate (LEXAPRO) 20 mg tablet 2020-02-22 00:00 :00 Yes Anxiety disorder, unspecified type 20mg QD Take 1 tablet by mouth daily. [facility] traMADoL (ULTRAM) 50 mg tablet 2020-02-11 00:00:00 Yes Closed fracture of tooth, initial encounter 50mg Take 1 tablet b y mouth every 6 hours as needed for Pain. [facility] carvediloL (COREG) 25 mg tablet 2020-02-08 00:00:00 Yes Medication refill Take 1 tablet by mouth twice a day. Need labs for more refills. [facility] lancets 28 gauge 2020-01-18 00:00:00 Yes Non-insulin dependent type 2 diabetes mellitus Use 2 times weekly as directed. [facility] blood glucose meter 2020-01-15 00:00:00 Yes Non-insulin dependent type 2 diabetes mellitus Use as directed.. [facility] blood glucose test strips 2020-01-14 00:00:00 2020-04-05 00: 00:00 No Non- insulin dependent type 2 diabetes mellitus 2 times weekly Use 2 times weekly (once per day on Sat,) to test blood sugar. [facility] lancets 28 gauge 2020-01-12 00:00:00 2020-01-15 00:00:00 No Non-insulin dependent type 2 diabetes mellitus Use 2 times weekly as d irected. [facility] amitriptyline (ELAVIL) 10 mg tablet 2020-01-11 00:00:0 0 2020-02-22 00:00:00 No Anxiety disorder, unspecified type 10mg Take 1 tablet by mouth at bedtime nightly. [facility] buPROPion (WELLBUTRIN XL) 150 mg extended release tablet 2020-01-11 00:00:00 2020-02-22 00:00:00 No Anxiety disorder, unspecified type 150 mg Take 1 tablet by mouth every morning. [facility] escitalopram oxalate (LEXAPRO) 20 mg tablet 2019 00:00:00 2020-02-22 00:00:00 No Anxiety disorder, unspecified type 20mg Q D Take 1 tablet by mouth daily. [facility] LORazepam (ATIVAN) 0.5 mg tablet 2020-01-11 00:00:00 2020-02 00:00:00 No Recurrent major depressive disorder, in partial remission .5mg Take 1 tablet by mouth 2 times daily as needed for Anxiety. [facility] famotidine (PEPCID) 40 mg tablet 2019-12-15 00:00:00 2020-05 00:00:00 No Medication refill Take 1 tablet by mouth once daily [facility] guaiFENesin (DIABETIC TUSSIN EX) 100 mg/5 mL syrup 2019-12-10 00:00:00 2019-12-20 23:59:00 No Cough 200mg Take 10 mL by mouth 3 times daily as needed for up to 10 days for Cough or Congestion. [facility] mometasone (NASONEX) 50 mcg/actuation nasal spray 2019-12-03 00:00:00 Yes Nasal congestion 1{spray} QD 1 Aubrey by each nostril route daily. [facility] ibuprofen (MOTRIN) 600 mg tablet 2019-12-03 00:00:00 Yes Body aches 600mg Take 1 tablet by mouth every 8 hours as needed for Pain. [facility] Femgfzqdvqvewsa-Cgeblgojv-DB (BROMFED DM) 2-30-10 mg/5 mL sy rup 2019-12-03 00:00:00 2019-12-13 23:59:00 No Viral URI with cough 10mL Take 10 mL by mouth 4 times daily as needed for up to 10 days for Allergies, Congestion or Cough. [facility] clindamycin (CLEOCIN HCL) 300 mg capsule 2019-11 00:00:00 2019-12-03 00:00:00 No 300mg Take 1 capsule by mouth 3 times daily for 10 days. [facility] carvediloL (COREG) 25 mg tablet 2019-12-01 00:00:00 00:00:00 No Medication refill Take 1 tablet by mouth twice a day. [facility] atorvastatin (LIPITOR) 20 mg tablet 2019-11-12 00:00:00 Yes Pure hypercholesterolemia 20mg Take 1 tablet by mo ut at bedtime nightly For cholesterol. [facility] amLODIPine (NORVASC) 5 mg tablet 2019-11-12 00:00:00 Yes Essential hypertension 5mg QD Take 1 tablet by mouth daily. [facility] metFORMIN (GLUCOPHAGE XR) 500 mg ER extended release tablet 2019-11-12 00:00:00 Yes Medication refill 500mg QD Ta ke 1 tablet by mouth daily (with breakfast). [facility] hydroCHLOROthiazide (HYDRODIURIL) 25 mg tablet 2 00:00:00 2020-07-07 23:59:00 No Essential hypertension 25mg QD Take 1 tablet by mouth daily. [facility] hydroCHLOROthiazide (HYDRODIURIL) 25 mg tablet 2019-10-01 00 :00:00 Yes Essential hypertension 25mg QD Take 1 tablet by mouth daily. [facility] ergocalciferol (VITAMIN D2) 1,250 mcg (50,000 unit) capsule 2019-10-01 00:00:00 Yes Vitamin D deficiency [id number] Take 1 cap naya by mouth weekly. [facility] albuterol 90 mcg/actuation inhaler 2019-10-01 00:00:00 Yes Medication refill 2{puff} Inhale 2 Puffs by mouth 4 times daily as needed for Wheezing. [facility] escitalopram oxalate (LEXAPRO) 20 mg tablet 2019 00:00:00 2020-01-11 00:00:00 No MDD (major depressive disorder), recurren t episode, moderate 20mg QD Take 1 tablet by mouth daily. [facility] atorvastatin (LIPITOR) 20 mg tablet 2019-10-01 00:00:0 0 2019-11-12 00:00:00 No Pure hypercholesterolemia 20mg Ta ke 1 tablet by mouth at bedtime nightly For cholesterol. [facility] amLODIPine (NORVASC) 5 mg tablet 2019-10-01 00:00:00 2019-10 00:00:00 No Essential hypertension 5mg QD Take 1 tablet by mouth daily. [facility] metFORMIN (GLUCOPHAGE XR) 500 mg ER extended release tablet 2019-10-01 00:00:00 2019-11-12 00:00:00 No Medication refill 500mg QD Take 1 tablet by mouth daily (with breakfast). [facility] polyethylene glycol (GLYCOLAX) 17 gram/dose oral powder 2019-10-01 00:00:00 2019-10-04 23:59:00 No Constipation, unspecified constipation type Mix 17 grams into 4 to 8 ounces of water, juice, soda, tea or coffee and drink as directed, one time a day. [facility] traMADol (ULTRAM) 50 mg tablet 2019-09-18 00:00:00 2020-01-23 1 00:00:00 No Closed fracture of tooth, initial encounter 50mg Take 1 tablet by mouth every 6 hours as needed for Pain. [facility] clindamycin (CLEOCIN HCL) 300 mg capsule 2019-08 00:00:00 2019-10-04 23:59:00 No Infection of lip 300mg Take 1 c apsule by mouth 3 times daily for 10 days. [facility] ketorolac (TORADOL) injection 30 mg 2019-09-01 10:00:0 0 2019-09-01 09:58:00 No Acute pain of right knee 30mg [facility] loratadine (CLARITIN) 10 mg tablet 2019-09-01 00:00:00 Yes Viral upper respiratory tract infection with cough 10mg QD Take 1 tablet b y mouth daily. [facility] acetaminophen-codeine (TYLENOL/CODEINE #3) 300-30 mg per tab let 2019-09-01 00:00:00 2020-02-11 00:00:00 No Acute pain of right knee Take one tablet every 12 hours as needed for SEVERE pain not relieved with over the counter Tylenol. [facility] benzonatate (TESSALON PERLES) 100 mg capsule 201 06-04-10 00:00:00 2019-12-03 00:00:00 No Viral upper respiratory tract infection with co ugh Take one to two capsules every 8 hours as needed for cough. CAUTION: may cause drowsiness. [facility] lisinopriL (PRINIVIL) 20 mg tablet 2019-07-27 00:00:00 202 00:00:00 No Medication refill 40mg QD Take 2 tablets by mouth daily. [facility] buPROPion (WELLBUTRIN XL) 150 mg extended release tablet 2019-07-27 00:00:00 2020-01-11 00:00:00 No MDD (major depressiv e disorder), recurrent episode, moderate 150mg Take 1 tablet by mouth every morning. [facility] amitriptyline (ELAVIL) 10 mg tablet 2019-07-27 00:00:0 0 2020-01-11 00:00:00 No MDD (major depressive disorder), recurrent episode, mo derate 10mg Take 1 tablet by mouth at bedtime nightly. [facility] famotidine (PEPCID) 40 mg tablet 2019-07-27 00:00:2019-11 00:00:00 No Medication refill 40mg QD Take 1 tablet by mouth daily. [facility] carvedilol (COREG) 25 mg tablet 2019-07-27 00:00: 00:00:00 No Medication refill Take 1 tablet by mouth twice a day. [facility] metFORMIN (GLUCOPHAGE XR) 500 mg ER extended release tablet 2019-07-27 00:00:00 2019-10-01 00:00:00 No Medication refill 500mg QD Take 1 tablet by mouth daily (with breakfast). [facility] ergocalciferol (VITAMIN D2) 50,000 unit capsule 2019-07-27 00:00:00 2019-10-01 00:00:00 No Vitamin D deficiency [id number] Take 1 capsule by mouth weekly. [facility] metroNIDAZOLE (FLAGYL) 500 mg tablet 2019-07-27 00:00: 00 2019-08-01 23:59:00 No Vaginal discharge 500mg Q.5D Take 1 tab let by mouth 2 times daily for 5 days. [facility] terconazole (TERAZOL 3) 0.8 % vaginal cream 2018 00:00:00 2019-07-30 23:59:00 No Vaginal discharge 1{applicator} Inse rt 1 Applicator vaginally at bedtime [facility] ([facility] 25 mg tablet 2019-07-09 00:00:00 00:00:00 No Medication refill Take 1 tablet by mouth twice a day. [facility] benzonatate (TESSALON PERLES) 100 mg capsule 201 06-02-17 00:00:00 2019-07-17 23:59:00 No URI with cough and congestion 100mg Take 1 capsule by mouth 3 times daily as needed for up to 7 days for Cough. [facility] azithromycin (ZITHROMAX) 250 mg tablet 2019-06-23 7 00:00:00 2019-07-15 23:59:00 No URI with cough and congestion Take 2 tablets by mouth on the first day, then take one tablet every day for the next 4 days. [facility] LORazepam (ATIVAN) 0.5 mg tablet 2019-06-09 00:00:00 2019-12 00:00:00 No Recurrent major depressive disorder, in partial remission .5mg Take 1 tablet by mouth 2 times daily as needed for Anxiety. [facility] omeprazole (PRILOSEC) 20 mg delayed release capsule 2019-06-05 00:00:00 2019-07-27 00:00:00 No Dyspepsia Take 1 capsule (20 mg) by mouth every other day for 2 weeks. Then take 1 capsule by mouth every 4 days for 2 weeks.. [facility] sucralfate (CARAFATE) 100 mg/mL oral suspension 2019-04-21 0 0:00:00 Yes Acute gastric ulcer, unspecified whether gastric ulcer hemorrhage or perforation present 1000mg Take 10 mL by mouth 4 times daily. [facility] omeprazole (PRILOSEC) 20 mg delayed release capsule 2019-04-21 00:00:00 2019-07-27 00:00:00 No Acute gastric ulcer, unspecified whether gastric ulcer hemorrhage or perforation present 40mg QD Take 2 capsules by mouth daily. [facility] buPROPion (WELLBUTRIN XL) 150 mg extended release tablet 2019-04-20 00:00:00 2019-07-27 00:00:00 No MDD (major depressiv e disorder), recurrent episode, moderate 150mg Take 1 tablet by mouth every morning. [facility] LORazepam (ATIVAN) 0.5 mg tablet 2019-04-20 00:00:00 2019-07 00:00:00 No MDD (major depressive disorder), recurrent episode, moderate .5mg Take 1 tablet by mouth 2 times daily as needed for Anxiety. [facility] amitriptyline (ELAVIL) 10 mg tablet 2019-04-20 00:00:0 0 2019-07-27 00:00:00 No MDD (major depressive disorder), recurrent episode, mo derate 10mg Take 1 tablet by mouth at bedtime nightly. [facility] hydroCHLOROthiazide (HYDRODIURIL) 25 mg tablet 2 00:00:00 2019-10-01 00:00:00 No Essential hypertension 25mg QD Take 1 tablet by mouth daily. [facility] escitalopram oxalate (LEXAPRO) 20 mg tablet 2018 00:00:00 2019-10-01 00:00:00 No MDD (major depressive disorder), recurren t episode, moderate 20mg QD Take 1 tablet by mouth daily. [facility] amLODIPine (NORVASC) 5 mg tablet 2019-03-24 00:00:00 2019-09 00:00:00 No Essential hypertension 5mg QD Take 1 tablet by mouth daily. [facility] tropicamide (MYDRIACYL) 0.5 % ophthalmic solution 2019-03-24 00:00:00 2019-09-20 23:59:00 No Elevated hemoglobin A1c 1[drp] Instill 1 Drop in each eye once as needed for up to 1 dose (for poor retina scan image). [facility] lisinopril (PRINIVIL) 20 mg tablet 2019-03-24 00:00:00 06-03-04 00:00:00 No Medication refill 40mg QD Take 2 tablets by mouth daily. [facility] ciclesonide (ZETONNA) 37 mcg/actuation nasal HFA inhaler 2018-11-10 00:00:00 2019-12-03 00:00:00 No Vertigo 1{spray} QD Use 1 Spra y in each nostril daily. [facility] albuterol 90 mcg/actuation inhaler 2018-11-10 00:00:00 00:00:00 No 2{puff} Inhale 2 Puffs by mouth 4 times daily as needed for Wheezing. [facility] loratadine (CLARITIN) 10 mg tablet 2018-11-10 00:00:00 06-04-10 00:00:00 No Seasonal allergic rhinitis due to pollen 10mg QD Take 1 tablet by mouth daily. [facility] metFORMIN (GLUCOPHAGE XR) 500 mg ER extended release tablet 2018-11-03 00:00:00 2019-07-27 00:00:00 No Medication refill 500mg QD Take 1 tablet by mouth daily (with breakfast). [facility] escitalopram oxalate (LEXAPRO) 10 MG tablet 2018-10-20 00:00:00 Yes 10mg Take 10 mg by mouth. [facility] ergocalciferol (VITAMIN D2) 50,000 unit capsule 2018-10-20 00:00:00 2019-07-27 00:00:00 No Vitamin D deficiency 45966T Take 1 capsule by mouth weekly. [facility] lancets 28 gauge 2018-09-18 00:00:00 2020-01-10 00:00:00 No Non-insulin dependent type 2 diabetes mellitus Use 2 times weekly as d irected. [facility] blood glucose test strips 2018-09-18 00:00:00 2020-01-10 00: 00:00 No Non- insulin dependent type 2 diabetes mellitus 2 times weekly Use 2 times weekly (once per day on ) to test blood sugar. [facility] isosorbide mononitrate (IMDUR) 60 mg extended release tablet 2018-08-07 00:00:00 Yes Medication refill Ta ke 1 and 1/2 tablets by mouth once a day. [facility] albuterol HFA (PROVENTIL HFA) 90 mcg/actuation inhaler 2018-08-05 00:00:00 Yes 2{puff} Inhale 2 puffs by mouth via inhaler. [facility] HYDROcodone-homatropine (HYDROMET) 5-1.5 mg/5 mL syrup 2018-08-05 00:00:00 Yes 2.5mL Take 2.5 mLs by mouth. [facility] HYDROcodone-homatropine (HYDROMET) 5-1.5 mg/5 mL syrup 2018-08-05 00:00:00 2019-09-01 00:00:00 No Laryngitis 2.5mL Take 2.5 mL by mouth every 4 hours as needed for Other (cough). [facility] aspirin (ASPIRIN) 81 mg chewable tablet 2018-07-17 00:00:00 Yes Type 2 diabetes mellitus without complication, without long-term current use of insulin 81mg QD Chew and swallow 1 tablet by mouth daily. [facility] atorvastatin (LIPITOR) 20 MG tablet 2018-06-13 00:00:00 Yes 20mg Take 20 mg by mouth. [facility] gabapentin (NEURONTIN) 400 MG capsule 2018-06-13 00:00:00 Y es 400mg Take 400 mg by mouth. [facility] gabapentin (NEURONTIN) 400 mg capsule 2018-06-13 00:00:00 Yes Low back pain with sciatica, sciatica laterality unspecified, unspecified back pain laterality, unspecified chronicity 400mg Take 1 capsule by mouth 3 times daily. [facility] atorvastatin (LIPITOR) 20 mg tablet 2018-06-13 00:00:0 0 2019-10-01 00:00:00 No Pure hypercholesterolemia 20mg Ta ke 1 tablet by mouth at bedtime nightly For cholesterol. [facility] carvedilol (COREG) 25 mg tablet 2018-06-13 00:00:00 00:00:00 No Medication refill Take 1 tablet by mouth twice a day. [facility] clotrimazole (LOTRIMIN) 1 % topical cream 2018-05-18 00:00:0 0 Yes Medication refill Q.5D Apply to affected area 2 times daily. [facility] Tylenol 2018-03-25 13:59:00 No Notes: Do not exceed 4 gm/day. (Same as: Tylenol) [facility] atorvastatin 80 mg oral tablet 2018-03-25 12:55:00 Yes 80 mg = 1 tab, PO, Bedtime, # 30 tab, 0 Refill(s), Pharmacy: [facility] [address] [place], [place] [address] atorvastatin 80 mg oral tablet 2018-03-25 12:54:00 No 80 mg = 1 tab, PO, Bedtime, 0 Refill(s) Bradley Barbara nn Sodium Chloride 0.9% IV 1,000 mL 2018-03-25 03:41:00 No 1,000 mL, Rate: 100 ml/hr, Infuse over: 10 hr, Route: IVPB, Dosing Weight 129.545 kg, Total Volume: 1,000, Start date: 03/24/18 22:41:00 CDT, Duration: 30 day, Stop date: 04/23/18 22:40:00 CDT, 2.47, m2 [facility] Nitroglycerin 2018-03-25 00:58:00 No Notes: (Same as:Nitroquick, Nitrostat) "Do Not Crush" Sublingual tablet [facility] remove patch 2018-03-24 23:00:00 No Notes: Remove from 9 pm to 9 am daily for 12 hour nitrate free period. (Verify Patient has not taken Viagra, Cialis or Levitra in last 24 hours; if taken, hold NTG and notify MD.) [facility] Isaías Dextrose 50% Syringe 2018-03-24 18:01:00 No 25 gm, 50 mL, Route: IVP, Drug Form: INJ, Dosing Weight 129.545, kg, PRN, PRN Blood Glucose Results, Start date: 03/24/18 13:01:00 CDT, Duration: 30 day, Stop date: 04/23/18 13:00:00 CDT [facility] [place] Glucagon 2018-03-24 18:01:00 No 1 mg, Route: IM, Drug form: PDR/INJ, PRN, Dosing Weight 129.545, kg, PRN Blood Glucose Results, Start date: 03/24/18 13:01:00 CDT, Duration: 30 day, Stop date: 04/23/18 13:00:00 CDT [facility] Insulin Lispro 2018-03-24 18:01:00 No Notes: (Same as: Humalog ) Roll in palms of hands gently; Do not shake `vigorously. "Single Patient Use Only " WASTE: F/P - Black; E - Municipal Trash Bin Stable for 28 days at room temperature. Expires in days from Date [facility] Isaías Prednisone 2018-03-24 18:00:00 No Notes: Ta ke with food. [facility] Diphenhydramine 2018-03-24 17:55:00 No Notes: (Same as: Benadryl) [facility] methylPREDNISolone SODium SUCCinate 2018-03-24 17:55:00 No Notes: (Same as:Solu-MEDROL, A-Methapred) [facility] Famotidine 2018-03-24 17:55:00 No Notes: (Same as: Pepcid) Can be dilute in 5-10cc NS IVP: Slow IV push over at least 2 minutes. [facility] quetiapine 2018-03-24 02:00:00 No Notes: (S radha as: SEROquel) [facility] Lipitor 2018-03-24 02:00:00 No Notes: Same as Lipitor [facility] remove patch 2018-03-23 23:00:00 No 1 patch, Route: TOP, Drug form: ERFILM, Daily, Start date: 03/23/18 18:00:00 CDT, Duration: 30 day, Stop date: 04/21/18 18:00:00 CDT [facility] Lorazepam 2018-03-23 21:55:00 Yes 0. 5 mg, PO, Bedtime, 0 Refill(s) [facility] hydrochlorothiazide 12.5 mg oral tablet 2018-03-23 21:55:00 Yes 12.5 mg = 1 tab, PO, Daily, 0 Refill(s) [facility] [place] heparin 25,000 unit [12 unit/kg/hr] + Pr emix Diluent Sodium Chloride 0.45% 500 mL 2018-03-23 20:36:00 No 500 mL, Rate: 20.31 ml/hr, Infuse over: 24.6 hr, Route: IV, Dosing Weight 84.64 kg, Total Volume: 500, Start date: 03/23/18 15:36:00 CDT, Stop date: 04/22/18 15:35:00 CDT, 1.98, m2 [facility] [place] NS 1,000 mL 2018-03-23 20:26:00 No 1,000 mL, Rate: 75 ml/hr, Infuse over: 13.3 hr, Route: IV, Dosing Weight 129.545 kg, Total Volume: 1,000, Start date: 03/23/18 15:26:00 CDT, Duration: 30 day, Stop date: 04/22/18 15:25:00 CDT, 2.47, m2 [facility] Heparin 30 unit/kg Bolus (Heparin Dosing Weight) 2018-03-23 20:2 1:00 No Route: IVP, PRN, 2,500 unit, 2.5 mL, Drug form: INJ, PRN, Heparin Protocol, Start date: 03/23/18 15:21:00 CDT Stop date: 04/22/18 15:20:00 CDT, 30 day [facility] [place] heparin additive 25,000 unit [12 unit/kg /hr] + Premix Diluent Dextrose 5% 500 mL 2018-03-23 20:21:00 No 500 mL, Rate: 31.09 ml/hr, Infuse over: 16.1 hr, Route: IV, Dosing Weight 129.545 kg, Total Volume: 500 mL, Start date: 03/23/18 15:21:00 CDT, Duration: 30 day, Stop date: 04/22/18 15:20:00 CDT, 2.47, m2 [facility] [place] Heparin - one time bolus for ACS 2018-03-23 20:21:00 No 4,000 unit, 4 mL, Route: IVP, Drug form: INJ, ONCE, Dosing Weight 129.545, kg, Priority: STAT, Start date: 03/23/18 15:21:00 CDT, Stop date: 03/23/18 15:21:00 CDT [facility] Heparin 60 unit/kg Bolus (Heparin Dosing Weight) 2018-03-23 20:2 1:00 No Route: IVP, PRN, 5,000 unit, 5 mL, Drug form: INJ, PRN, Heparin Protocol, Start date: 03/23/18 15:21:00 CDT Stop date: 04/22/18 15:20:00 CDT, 30 day [facility] Dilaudid 2018-03-23 15:52:00 No Notes: [facility] Dilaudid 2018-03-23 15:45:00 No [facility]-23 14:00:00 No 75 mg, Route: PO, Drug form: TAB, Daily, Dosing Weight 114.545, kg, Start date: 03/23/18 9:00:00 CDT, Duration: 30 day, Stop date: 04/21/18 9:00:00 CDT [facility] Bupropion 2018-03-23 14:00:00 No Notes: (Do not crush) (Same As: Wellbutrin SR) [facility] Saline Flush 0.9% 2018-03-23 14:00:00 No Notes: (Same as: BD Posiflush) [facility] Lisinopril 2018-03-23 14:00:00 No 5 mg, Route: PO, Drug form: TAB, Daily, Dosing Weight 114.545, kg, Start date: 03/23/18 9:00:00 CDT, Duration: 30 day, Stop date: 04/21/18 9:00:00 CDT [facility] Aspirin 81 MG Enteric Coated Tablet 2018-03-23 14:00:00 No Notes: Do not crush or chew. (Same As: Ecotrin) [facility] Protonix 2018-03-23 14:00:00 No Notes: Tablet should not be chewed or crushed. (Same as: Protonix) [facility] 24 HR Nitroglycerin 0.1 MG/HR Transdermal Patch [Nitro-Dur] 2018-03-23 14:00:00 No 12.9545 mg , Route: TOP, Drug form: ERFILM, Daily, Dosing Weight 129.545, kg, Start date: 03/23/18 9:00:00 CDT, Duration: 30 day, Stop date: 04/21/18 9:00:00 CDT [facility] Isosorbide 2018-03-23 14:00:00 No Notes: (Same as:Imdur) "Do Not Crush" Take on empty stomach/ full glass of water. Do not crush [facility] Esomeprazole 2018-03-23 14:00:00 No 40 mg, Route: PO, Drug form: ECCAP, Daily, Dosing Weight 114.545, kg, Start date: 03/23/18 9:00:00 CDT, Duration: 30 day, Stop date: 04/21/18 9:00:00 CDT [facility] carvedilol 2018-03-23 14:00:00 No Notes: Give with food. (Same As: Coreg) [facility] iodixanol 2018-03-23 12:34:00 No Notes: (Same as: Visipaque). WASTE: F/P - Black; E - Municipal Trash Bin [facility] Iohexol 2018-03-23 12:04:00 No Notes: (same as:Omnipaque 350). WASTE: F/P - Black; E - Municipal Trash [facility] 24 HR Nitroglycerin 0.1 MG/HR Transdermal Patch [Nitro-Dur] 2018-03-23 10:37:00 No 1 patch, R oute: TOP, Drug form: ERFILM, Daily, Dosing Weight 129.545, kg, Priority: STAT, Start date: 03/23/18 5:37:00 CDT, Stop date: 04/21/18 6:00:00 CDT [facility] Dilaudid 2018-03-23 10:21:00 No Notes: Same as Dilaudid [facility] Protonix 2018-03-23 06:05:00 No Notes: Tablet should not be chewed or crushed. (Same as: Protonix) [facility] Potassium Chloride 2018-03-23 06:05:00 No Notes: (Same as: K-Dur 20) "Do Not Crush" For patients unable to swallow tablet, dissolve in one half glass of water. Allow about 2 minutes for the tablets to disintegrate. Stir before giving to prepare slurry and administer. Please exclude Patient s with feeding tube less than 14 Pashto (Dobhoff, J-tube etc) and pediatric and patients. With food and full glass of water [facility] Plavix 2018-03-23 05:42:00 No Notes: (Same As: Plavix) [facility] Lipitor 2018-03-23 05:38:00 No Notes: Same as Lipitor [facility] Dilaudid 2018-03-23 05:17:00 No Notes: Same as Dilaudid [facility] Lovenox 2018-03-23 04:00:00 No Notes: (Same as: Lovenox) [facility] amLODIPine 10 mg oral tablet 2018-03-23 02:41:00 Yes TAKE 1 TABLET BY MOUTH DAILY [facility] buPROPion 150 mg/24 hours (XL) oral tablet, extended release 2018-03-23 02:41:00 Yes TAKE 1 TABLET BY MOUTH EVERY DAY IN THE MORNING [facility] carvedilol 25 mg oral tablet 2018-03-23 02:41:00 Yes TAKE 1 TABLET BY MOUTH TWICE A DAY. [facility] Esomeprazole 40 MG Enteric Coated Capsule 2018-03-23 02:41:00 Yes TAKE 1 CAPSULE BY MOUTH EVERY MORNING (BEFORE BREAKFAST). [facility] isosorbide mononitrate 60 mg oral tablet, extended release 2018-03-23 02:41:00 Yes TAKE 1 AND 1/2 TABLETS BY MOUTH ONCE A DAY. [facility] lisinopril 20 mg oral tablet 2018-03-23 02:41:00 Yes TAKE 2 TABLETS BY MOUTH DAILY. [facility] metFORMIN 500 mg oral tablet, extended release 2018-03-23 02:41: 00 Yes TAKE 1 TABLET BY MOUTH DAILY (WITH BREAKFAST). [facility] QUEtiapine 25 mg oral tablet 2018-03-23 02:41:00 No TAKE 2 TABLETS BY MOUTH AT BEDTIME [facility] Saline Flush 0.9% 2018-03-23 02:39:00 No Notes: (Same as: BD Posiflush) [facility] Nitroglycerin 2018-03-23 02:39:00 No Notes: (Same as:Nitroquick, Nitrostat) "Do Not Crush" Sublingual tablet [facility] Ondansetron 2018-03-23 02:39:00 No Notes: ( Same as: Zofran) [facility] Zofran 2018-03-23 01:09:00 No Notes: (Same as: Zofran) MEDICATION WASTE Product Size: 4 mg Product Wasted: 0 mg [facility] Hydromorphone 2018-03-23 01:09:00 No Notes: Same as Dilaudid [facility] Aspirin 2018-03-23 01:09:00 No Notes: Take with food. [facility] hydroCHLOROthiazide (HYDRODIURIL) 12.5 MG tablet 2018-03-23 00:00:00 Yes 12.5 mg = 1 tab, PO, Daily, 0 Refill(s) [facility] amLODIPine (NORVASC) 10 MG tablet 2018-03-22 00:00:00 Yes TAKE 1 TABLET BY MOUTH DAILY [facility] buPROPion (WELLBUTRIN XL) 150 MG 24 hr tablet 2018-03-22 00:00:0 0 Yes 150mg Take 150 mg by mouth. [facility] carvedilol (COREG) 25 MG tablet 2018-03-22 00:00:00 Yes Take 1 tablet by mouth twice a day. [facility] esomeprazole (NEXIUM) 40 MG capsule 2018-03-22 00:00:00 Yes TAKE 1 CAPSULE BY MOUTH EVERY MORNING (BEFORE BREAKFAST). [facility] lisinopril (PRINIVIL) 20 MG tablet 2018-03-22 00:00:00 Yes 40mg Take 40 mg by mouth. [facility] metFORMIN (GLUCOPHAGE XR) 500 MG 24 hr tablet 2018-03-17 00:00:0 0 Yes 500mg Take 500 mg by mouth. [facility] gabapentin (NEURONTIN) 300 mg capsule 2018-01-09 00:00:00 Yes Acute pain of left knee 300mg Take 1 capsule by mouth 3 times daily. [facility] loratadine (CLARITIN) 10 mg tablet 2018-01-05 00:00:00 201 06-04-10 00:00:00 No Viral URI 10mg QD Take 1 tablet by mouth daily for cough and nasal congestion. [facility] mometasone (NASONEX) 50 mcg/actuation nasal spray 2017-09-19 00:00:00 2019-12-03 00:00:00 No Viral URI 1{spray} QD 1 Spr ay by each nostril route daily. [facility] clotrimazole (LOTRIMIN) 1 % external solution 2017-09-03 00: 00:00 Yes Onychomycosis Use 2 times daily on affected nails. [facility] meclizine (ANTIVERT) 25 mg Tab 2017-09-03 00:00:00 2019-11-22 2 00:00:00 No Vertigo 25mg Take 1 tablet by mouth 3 times daily as needed (vertigo). [facility] loratadine (CLARITIN) 10 mg tablet 2017-09-03 00:00:00 202 00:00:00 No Vertigo 10mg Take 1 tablet by mouth daily as needed for Allergies (or vertigo). [facility] azelastine (OPTIVAR) 0.05 % ophthalmic solution 2017-08-22 00:00 :00 Yes 1[drp] 1 drop. [facility] azelastine (OPTIVAR) 0.05 % ophthalmic solution 2017-08-22 0 0:00:00 Yes Environmental allergies 1[drp] Q.5D Instill 1 Drop in each eye 2 t imes daily. [facility] Leg Brace (KNEE BRACE LARGE-XLARGE) [facility] 2017-08-13 00:00:00 Yes Right knee pain, unspecified chronicity by [facility].(Non-Drug; C ombo Route) route. [facility] blood glucose meter 2017-08-13 00:00:00 2020-01-12 00:00:00 No Non-insulin dependent type 2 diabetes mellitus Use as directed.. [facility] hydroCHLOROthiazide (HYDRODIURIL) 25 mg tablet 2017-06-03 00 :00:00 Yes Essential hypertension 25mg QD Take 1 tablet by mouth daily. [facility] blood glucose test strips 2017-02-04 00:00:00 Yes Elevated fasting glucose Check twice a week. [facility] lancets (TRUEPLUS LANCETS) 28 gauge 2017-02-04 00:00:00 Yes Elevated fasting glucose Check blood sugar twice a week. [facility] Ondansetron 2016-08-19 00:30:00 No 4 mg, Route: IVP, Drug form: INJ, ONCE, Dosing Weight 114.545, kg, Priority: STAT, Start date: 08/18/16 18:30:00 CAGE UNLOADER, Stop date: 08/18/16 18:30:00 CAGE UNLOADER Dc almas Metz Azithromycin 5 Day Dose Pack 250 mg oral tablet 2016-08-19 00:24 :00 Yes See Instructions, Take 2 tab lets by mouth the first day then 1 tablet by mouth days 2-5., X 5 day, # 6 tab, 0 Refill(s) Bradley Metz 200 ACTUAT Albuterol 0.09 MG/ACTUAT Metered Dose Inhaler 2016-08-19 00:24:00 Yes 2 puff, INHALATION, QID, # 34 gm , 0 Refill(s) [facility] Azithromycin 2016-08-18 22:30:00 No Notes: Take 1 hour before or 2 hours after meals. (Same As: Zithromax) [facility] 200 ACTUAT Albuterol 0.09 MG/ACTUAT Metered Dose Inhaler 2016-08-18 21:58:00 No Notes: (Same as: Yamileth) WAS TE: Aerosol - Return to Pharmacy [facility] Prednisone 2016-08-18 21:57:00 No Notes: Ta ke with food. [facility] Ketorolac 2016-08-18 21:48:00 No 30 mg, Route: IVP, Drug form: INJ, ONCE, Dosing Weight 114.545, kg, Priority: STAT, Start date: 08/18/16 15:48:00 CAGE UNLOADER, Stop date: 08/18/16 15:48:00 CAGE UNLOADER Dc almas Metz Ondansetron 2016-08-18 21:48:00 No 4 mg, Route: IVP, Drug form: INJ, ONCE, Dosing Weight 114.545, kg, Priority: STAT, Start date: 08/18/16 15:48:00 CAGE UNLOADER, Stop date: 08/18/16 15:48:00 CAGE UNLOADER Dc almas Metz Albuterol 0.833 MG/ML / Ipratropium Brom drea 0.167 MG/ML Inhalant Solution [DuoNeb] 2016-08-18 20:27:00 No Notes: (S radha as: Duoneb) [facility] [place] Sodium Chloride 0.154 MEQ/ML Injectable Solution 2016-08-18 20:2 5:00 No 1,000 mL, 2,000 ml/hr, Infus e Over: 30 minutes, Route: IV, 1,000, Drug form: INJ, ONCE, Priority: STAT, Dosing Weight 114.545 kg, Start date: 08/18/16 14:25:00 CAGE UNLOADER, Duration: 1 doses or times, Stop date: 08/18/16 14:25:00 CAGE UNLOADER [facility] Ibuprofen 2016-08-18 20:25:00 No Notes: (Same as: Motrin) "Do Not Crush" Take with food. [facility] CPAP Device 2015-10-24 00:00:00 Yes SARAH (obstruct rosina sleep apnea) Use device as directed. Date of Study: 05/2015Diagnosis: SARAH 327.23AHI: see sleep study SaO2 roslyn: see sleep studyCPAP Pressure: 16 cm H2O with heated humidifier: Yes with mask (fit to patient) and supplies as needed: YesChin Strap: No. [facility] CPAP Mask 2015-10-24 00:00:00 Yes SARAH (obstructiv e sleep apnea) Fit to patient. [facility] CPAP Supply 2015-10-24 00:00:00 Yes SARAH (obstruct rosina sleep apnea) Mask (fit to patient), tubing & other supplies as needed to treat SARAH.. [facility] blood glucose meter 2014-01-27 00:00:00 Yes [place] pang fasting glucose Use as directed. [facility] nitroglycerin (NITROSTAT) 0.4 MG SL tablet 2012-03-23 00:00:[address] 0.4 mg under the tongue. [facility] nitroGLYCERIN (NITROSTAT) 0.4 mg sublingual tablet 2012-03 00:00:00 Yes Chest pain .4mg Place 1 tablet u nder tongue every 5 minutes as needed for Chest pain. [facility] pantoprazole 2012-03-17 21:30:00 No Mati Black Ahmed 40 mg, 1 tab, Route: PO, Drug form: ECTAB, Before Dinner, Start date: 03/17/12 16:30:00, Duration: 30 day, Stop date: 04/15/12 16:30:00 [facility] acetaminophen-hydrocodone 325 mg-5 mg oral tablet 20:26:49 Yes Mati Black Ahmed 1 tab, PO, Q6 H, PRN, 20 tab, Pain Score 1-3, Substitution Allowed, Maintenance, TAB M karenwood Metz ondansetron 2012-03-17 18:42:00 No Mati Black Ahmed 4 mg, 2 mL, Route: IVP, Drug form: INJ, Q4H, PRN Nausea & Vomiting, Start date: 03/17/12 13:42:00, Stop date: 04/16/12 13:41:00 M theodore Alanisann Maalox 2012-03-17 18:41:00 No Mati Black Ahmed 10 mL, Route: PO, Drug Form: SUSP, Q4H, PRN as needed for indigestion, Start date: 03/17/12 13:41:00, Duration: 30 day, Stop date: 04/16/12 13:40:00 Bradley Metz Zofran ODT 4 mg oral tablet, disintegrating 2012-03-17 15: 23:17 Yes Mati Black Ahmed 4 mg, 1 tab, PO, BID, PRN, 10 tab, Nausea and Vomiting, Substitution Allowed, Dissolve tab under tongueDissolve tab under tongue [facility] furosemide 20 mg oral tablet 2012-03-17 15:22:43 Yes Mtai Black Ahmed 20 mg, 1 tab, PO, Daily, 30 tab, Substitution Allowed, TAB [facility] lisinopril 20 mg oral tablet 2012-03-17 15:22:28 Yes Mati Black Ahmed 20 mg, 1 tab, PO, Daily, 30 tab, Substitution Allowed, TAB [facility] Protonix 40 mg oral enteric coated tablet 2012-03-17 15:22 :21 Yes Mati Blakc Ahmed 40 mg, 1 tab, PO, Daily, 30 tab, Substitution Allowed, ECTAB [facility] metoprolol 50 mg oral tablet 2012-03-17 15:22:05 Yes Mati Black Ahmed 50 mg, 1 tab, PO, BID, 60 tab, Substitution Allowed, TAB [facility] pantoprazole 2012-03-17 15:00:00 No Mati Black Ahmed 40 mg, 1 tab, Route: PO, Drug form: ECTAB, Daily, first dose today please, Start date: 03/17/12 10:00:00, Duration: 30 day, Stop date: 04/16/12 9:00:00 [facility] GI cocktail 2012-03-17 14:54:00 No Mati Black Ahmed 30 ml, Route: PO, Drug Form: SUSP, ONCE, Routine, Start date: 03/17/12 9:54:00, Stop date: 03/17/12 9:54:00 [facility] furosemide 20 mg oral tablet 2012-03-17 14:00:00 No Paulino Hissam Jose Manuel 20 mg, 1 tab, Route: PO, Félix g form: TAB, Daily, Start date: 03/17/12 9:00:00, Duration: 30 day, Stop date: 04/15/12 9:00:00 [facility] hydrALAZINE 2012-03-17 14:00:00 No Mati Black Ahmed 50 mg, 1 tab, Route: PO, Drug form: TAB, TID, Start date: 03/17/12 9:00:00, Duration: 30 day, Stop date: 04/15/12 17:00:00 [facility] [facility] met[facility]ol tartrate 2012-03-17 14:00:00 No Paulino sa m Jose Manuel 50 mg, 1 tab, Route: PO, Drug form: TAB, Q12H, Start date: 03/17/12 9:00:00, Duration: 30 day, Stop date: 04/15/12 21:00:00 [facility] Sen[facility] 2012-03-17 14:00:00 No Paulino shemar Jose Manuel 2 tab, Route: PO, Drug Form: TAB, BID, Start date: 03/17/12 9:00:00, Duration: 30 day, Stop date: 04/15/12 17:00:00 Judy Pruett lisinopril 2012-03-17 14:00:00 No Mati Black Ahmed 20 mg, 1 tab, Route: PO, Drug form: TAB, Daily, Start date: 03/17/12 9:00:00, Duration: 30 day, Stop date: 04/15/12 9:00:00 Tremaine Metz Dilaudid 2012-03-17 06:45:00 No Paulino Hissam Jose Manuel 1 mg, 0.5 mL, Route: IV, Drug form: INJ, Q4H, PRN Pain, Start date: 03/17/12 1:45:00, Duration: 30 day, Stop date: 04/16/12 1:44:00, pain 7 - 9 [facility] acetaminophen 2012-03-17 06:36:00 No Paulino Leger Javier iqi 650 mg, 2 tab, Route: PO, Drug form: TAB, Q4H, PRN Pain/Fever, Start date: 03/17/12 1:36:00, Duration: 30 day, Stop date: 04/16/12 1:35:00 [facility] acetaminophen-hydrocodone 325 mg-5 mg oral tablet 06:36:00 No Paulino Leger Jose Manuel 1 tab, Rou te: PO, Drug Form: TAB, Q4H, PRN Pain Score 1-3, Start date: 03/17/12 1:36:00, Duration: 30 day, Stop date: 04/16/12 1:35:00 [facility] ondansetron 2012-03-17 06:36:00 No Mati Black Ahmed 4 mg, 2 mL, Route: IVP, Drug form: INJ, Q6H, PRN Nausea & Vomiting, Start date: 03/17/12 1:36:00, Duration: 30 day, Stop date: 04/16/12 1:35:00 [facility] nitroglycerin 2% topical ointment 2012-03-16 23:58:00 No Mario Steve Sebastian 1 inch, Route: TOP, ONCE, ST AT, Start date: 03/16/12 18:58:00, Stop date: 03/16/12 18:58:00 [facility] Dilaudid 2012-03-16 23:13:00 No Mario Steve Sebastian 1 mg, 0.5 mL, Route: IV, Drug form: INJ, ONCE, Start date: 03/16/12 18:13:00, Stop date: 03/16/12 18:13:00 [facility] nitroglycerin 2012-03-16 22:49:00 No Mario Steve Sebastian 0.4 mg, 1 tab, Route: SL, Drug form: TAB, Q5Min, PRN Chest Pain, Priority: STAT, Start date: 03/16/12 17:49:00, Duration: 3 doses or times, Stop date: Limited # of times [facility] enalapril 2012-03-16 22:46:00 No Mario Steve Sebastian 40 mg, 2 tab, Route: PO, Drug form: TAB, ONCE, Start date: 03/16/12 17:46:00, Stop date: 03/16/12 17:46:00 [facility] hydrALAZINE 50 mg oral tablet 2012-03-16 22:46:00 No Am it Steve Sebastian 100 mg, 2 tab, Route: PO, Drug form: TAB, ONCE, Start date: 03/16/12 17:46:00, Stop date: 03/16/12 17:46:00 [facility] rbianda Benadryl 2012-03-16 22:29:00 No Paulino sam Jose Manuel 25 mg, 0.5 mL, Route: IVP, Drug form: INJ, ONCE, Priority: STAT, Start date: 03/16/12 17:29:00, Stop date: 03/16/12 17:29:00 [facility] ogann Cardene 40 mg in NS 200 ml IV 40 mg 2012-03-16 21:23:00 No Mario Steve Sebastian 40 mg, 200 mL, Rate: Titrate to MAP of 120, Route: IV, Total Volume: 200 mL, Duration: 30 day, Stop date: 04/15/12 16:22:00, Replace Every: 24 hr [facility] Dilaudid 2012-03-16 21:22:00 No Mario Steve Sebastian 1 mg, 0.5 mL, Route: IV, Drug form: INJ, ONCE, Start date: 03/16/12 16:22:00, Stop date: 03/16/12 16:22:00 [facility] metoprolol tartrate 2012-03-16 21:21:00 No Mario Steve M ehta 50 mg, 1 tab, Route: PO, Drug form: TAB, ONCE, Priority: STAT, Start date: 03/16/12 16:21:00, Stop date: 03/16/12 16:21:00 [facility] 2012-03-16 21:21:00 No Mario Steve Sebastian 0.1 mg, 1 tab, Route: PO, Drug form: TAB, ONCE, Priority: STAT, Start date: 03/16/12 16:21:00, Stop date: 03/16/12 16:21:00 [facility] 2012-03-16 21:21:00 No Mario Wilson Sebastian 4 mg, 2 mL, Route: IVP, Drug form: INJ, ONCE, Priority: STAT, Start date: 03/16/12 16:21:00, Stop date: 03/16/12 16:21:00 [facility] Toradol 10 mg oral tablet 2011-11-29 15:16:00 No Keisha L Kilgore 10 mg, 1 tab, Route: PO, Drug form: TAB, Q6H, PRN Pain, Start date: 11/29/11 9:16:00, Duration: 2 day, Stop date: 12/01/11 9:15:00 [facility] hydrALAZINE 50 mg oral tablet 2011-11-29 15:00:00 No Katarzyna Sylvaine Neyou 50 mg, 2 tab, Route: PO, Drug form: TAB, TID, Start date: 11/29/11 9:00:00, Duration: 30 day, Stop date: 12/28/11 17:00:00 [facility] enalapril 2011-11-29 15:00:00 No Katarzyna Sylvaine Neyou 20 mg, 1 tab, Route: PO, Drug form: TAB, Daily, Start date: 11/29/11 9:00:00, Duration: 30 day, Stop date: 12/28/11 9:00:00 Tremaine Metz Protonix 2011-11-29 15:00:00 No Katarzyna Sylvaine Neyou 40 mg, 1 tab, Route: PO, Drug form: ECTAB, BID, Start date: 11/29/11 9:00:00, Duration: 30 day, Stop date: 12/28/11 17:00:00 Judy Pruett Lasix 2011-11-29 15:00:00 No Katarzyna Sylvaine Neyou 20 mg, 1 tab, Route: PO, Drug form: TAB, Daily, Start date: 11/29/11 9:00:00, Duration: 30 day, Stop date: 12/28/11 9:00:00 Tremaine Metz metoprolol 2011-11-29 10:59:05 Yes 50 mg, PO, BID, Substitution Allowed [facility] hydrALAZINE 2011-11-29 10:57:31 Yes 50 mg, PO, TID, Substitution Allowed [facility] 20 mg oral tablet 2011-11-29 10:56:26 Yes PO, Daily, Substitution Allowed [facility] enalapril 20 mg oral tablet 2011-11-29 10:55:05 No 40 mg, 2 tab, PO, Daily, Substitution Allowed [facility] clonidine 0.1 mg oral tablet 2011-11-29 10:53:33 Yes 0.1 mg, 1 tab, PO, TID, Substitution Allowed [facility] oscar Bactrim DS 2011-11-29 10:51:22 No 1 tablet, PO, Q12H, Substitution Allowed, Maintenance [facility] pantoprazole 2011-11-29 10:50:06 Yes 40 mg, PO, Daily, 30 tab, Substitution Allowed, bidbid [facility] Tylenol 2011-11-29 07:21:00 No Katarzyna Sylvaine Neyou 650 mg, 2 tab, Route: PO, Drug form: TAB, Q4H, PRN Pain, Start date: 11/29/11 1:21:00, Duration: 30 day, Stop date: 12/29/11 1:20:00 [facility] clonidine 0.1 mg oral tablet 2011-11-29 06:00:00 No Katarzyna Sylvaine Neyou 0.1 mg, 1 tab, Route: PO, Dr ug form: TAB, TID, Start date: 11/29/11 0:00:00, Duration: 30 day, Stop date: 12/28/11 16:00:00 [facility] nitroglycerin 2% ointment 2011-11-29 06:00:00 No Keisha Kilgore 0.5 inch, Route: TOP, Drug Form: OINT, Q6H, Start date: 11/29/11 0:00:00, Duration: 30 day, Stop date: 12/28/11 18:00:00 [facility] izaiahcecy [place] metoprolol 2011-11-29 03:00:00 No Katarzyna Sylvaine Neyou 50 mg, 1 tab, Route: PO, Drug form: TAB, Q12H, Start date: 11/28/11 21:00:00, Duration: 30 day, Stop date: 12/28/11 9:00:00 Tremaine chávez [place] morphine Sulfate 2011-11-29 02:43:00 No Stacy Hernandez ah 2 mg, Route: IVP, ONCE, PRN Pain, Start date: 11/28/11 20:43:00, Stop date: 12/28/11 19:42:00 [facility] Bactrim DS 2011-11-29 02:00:00 No Katarzyna Sylvaine Neyou 1 tab, Route: PO, Drug Form: TAB, [id number], Start date: 11/28/11 20:00:00, Duration: 1 day, Stop date: 11/29/11 8:00:00 [facility] Phenergan 2011-11-29 01:55:00 No Katarzyna Sylvaine Neyou 25 mg, 1 tab, Route: PO, Drug form: TAB, Q4H, PRN Allergic reaction, Start date: 11/28/11 19:55:00, Duration: 30 day, Stop date: 12/28/11 19:54:00 [facility] clonidine 2011-11-29 00:34:00 No Stacy Maria 0.1 mg, 1 tab, Route: PO, Drug form: TAB, ONCE, Priority: STAT, Start date: 11/28/11 18:34:00, Stop date: 11/28/11 18:34:00 [facility] hydrALAZINE 50 mg oral tablet 2011-11-29 00:34:00 No Stacy Maria 50 mg, 2 tab, Route: PO, Drug form: TAB, ONCE, Start date: 11/28/11 18:34:00, Stop date: 11/28/11 18:34:00 [facility] metoprolol 2011-11-29 00:34:00 No Stacy Maria 100 mg, 2 tab, Route: PO, Drug form: TAB, ONCE, Start date: 11/28/11 18:34:00, Stop date: 11/28/11 18:34:00 [facility] diphenhydrAMINE 2011-11-28 23:32:00 No Bandar Mehul Vu 25 mg, Route: IVP, ONCE, Priority: STAT, Start date: 11/28/11 17:32:00, Stop date: 11/28/11 17:32:00 [facility] Benadryl 2011-11-28 23:30:00 No Bandar Mehul Vu 25 mg, Route: IVP, ONCE, Priority: STAT, Start date: 11/28/11 17:30:00, Stop date: 11/28/11 17:30:00 [facility] ondansetron 2011-11-28 23:12:00 No Bandar Mehul Vu 4 mg, Route: IVP, Drug form: INJ, ONCE, Priority: STAT, Start date: 11/28/11 17:12:00, Stop date: 11/28/11 17:12:00 [facility] morphine Sulfate 2011-11-28 23:12:00 No Bandar Mehul Vu 4 mg, Route: IVP, ONCE, Priority: STAT, Start date: 11/28/11 17:12:00, Stop date: 11/28/11 17:12:00 [facility] nitroglycerin 2011-11-28 21:18:00 No Bandar Mehul Vu 0.4 mg, 1 tab, Route: SL, Drug form: TAB, Q5Min, PRN Chest Pain, (Hold if SBP < = 90 mmHg or if < = 100mmHg with symptomatic dizziness), Start date: 11/28/11 15:18:00, Duration: 3 doses or times, Stop date: 12/28/11 15:17:00 [facility] aspirin 325 mg tablet 2011-11-28 21:18:00 No Bandar Mehul Vu 325 mg, 1 tab, Route: PO, Drug form: TAB, ONCE, Priority: STAT, Start date: 11/28/11 15:18:00, Stop date: 11/28/11 15:18:00 [facility] 2011-06-23 01:36:23 Yes Stacy Maria 1 tab, PO, Q4H, PRN, 15 tab, for pain, Substitution Allowed, Maintenance, TAB [facility] hydromorphone 2011-06-22 23:30:00 No Vickieoriana may 1 mg, Route: IVP, ONCE, Priority: STAT, Start date: 06/22/11 18:30:00, Stop date: 06/22/11 18:30:00 [facility] Reglan 2011-06-22 23:22:00 No Vickie Yeny Akunyili 10 mg, 2 mL, Route: IV, Drug form: INJ, ONCE, Start date: 06/22/11 18:22:00, Stop date: 06/22/11 18:22:00 [facility] GI cocktail 2011-06-22 23:22:00 No Vickie Yeny Aku nyili 40 mL, Route: PO, Drug Form: SUSP, ONCE, STAT, Start date: 06/22/11 18:22:00, Stop date: 06/22/11 18:22:00 [facility] hydrALAZINE 2011-06-22 23:21:00 Yes Vickie Yeny Aku nyili 10 mg, 0.5 mL, Route: IVP, Drug form: INJ, ONCE, Priority: STAT, Start date: 06/22/11 18:21:00, Stop date: 06/22/11 18:21:00 [facility] Dilaudid 2011-06-22 22:01:00 No Vickie Yeny Akunyi li 0.5 mg, 0.25 mL, Route: IV, Drug form: INJ, ONCE, Priority: STAT, Start date: 06/22/11 17:01:00, Stop date: 06/22/11 17:01:00 [facility] Sodium Chloride 0.9% (Bolus) IV 1,000 mL 2011-06-22 19:19: 00 No Vickie Yeny Akunyili 1,000 mL, Rat e: 1,000 ml/hr, Infuse over: 1 hr, Route: IV, Total Volume: 1,000, Bolus Dose, Priority: STAT, Start date: 06/22/11 14:19:00, Duration: 1 doses or times, Stop date: 06/22/11 15:18:00 [facility] Dilaudid 2011-06-22 19:19:00 No Vickie Yeny Akunyi li 1 mg, 0.5 mL, Route: IV, Drug form: INJ, ONCE, Priority: STAT, Start date: 06/22/11 14:19:00, Stop date: 06/22/11 14:19:00 M [facility] ondansetron 2011-06-22 19:19:00 No Vickie fay 8 mg, 4 mL, Route: IVP, Drug form: INJ, ONCE, Priority: STAT, Start date: 06/22/11 14:19:00, Stop date: 06/22/11 14:19:00 [facility] S[facility] 2011-06-22 19:18:00 No Vickieoriana Wilsonkarenali 8 mg, Route: IVP, ONCE, Priority: STAT, Start date: 06/22/11 14:18:00, Stop date: 06/22/11 14:18:00 [facility] Amlodipine Besylate (Norvasc) 10 Mg TAB Amlodipine Besylate (Norvasc) 10 Mg TAB Yes 10 Daily [facility] Atorvastatin Calcium Atorvastatin Calcium Yes 10 Today At 9:00PM [facility] Carbidopa/Levodopa (Sinemet 10-100 Mg Tablet) 1 Each T ABLET Carbidopa/Levodopa (Sinemet 10-100 Mg Tablet) 1 Each TABLET Yes 1 Three Times A Day [facility] Lisinopril/Hydrochlorothiazide (Lisinopril-Hctz 20-12. 5 Mg Tab) 1 Each TABLET Lisinopril/Hydrochlorothiazide (Lisinopril-Hctz 20-12.5 Mg Tab) 1 Each TABLET Yes [facility] Metformin Hcl Metformin Hcl Yes 500 Twice A Day [facility] Pantoprazole Sodium (Protonix) 40 Mg TABLET. Pantopr azole Sodium (Protonix) 40 Mg TABLET.DR Rivera 40 [facility] Immunizations Ordered Immunization Name Filled Immunization Name Date Status Comments Source Influenza, Vaccine<FLUCELVAX>(Multi-Dose) 2019-09-01 00:00 :00 Completed [facility] Influenza, Vaccine <FLUCELVAX>(Preservative-Free) 2018-07-13 00:00:00 Completed [facility] Pneumococcal 13-valent conj 0.5 mL injection 2016-10-11 00 :00:00 Completed [facility] Influenza Vaccine 2016-10-11 00:00:00 Completed [facility] Influenza Vac (Fluarix) 2015-10-20 00:00:00 Completed [facility] PPV 23 Pneumococcal Polysaccaride 2014-08-27 00:00:00 Comp leted [facility] Influenza Vaccine 2014-08-27 00:00:00 Completed [facility] Tdap Tetanus, diphtheria, acellular pertussis Vaccine 2012-05-14 00:00:00 Completed [facility] Vital Signs Vital Name Observation Time Observation Value Comments Source Weight 2020-06-09 08:26:00 250 [lb_av] [facility] BMI (Body Mass Index) 2020-06-09 08:26:00 41.6 kg/m2 [facility] Systolic blood pressure 2020-03-17 11:50:00 142 mm[Hg] [facility] Diastolic blood pressure 2020-03-17 11:50:00 80 mm[Hg] [facility] Heart rate 2020-03-17 11:50:00 82 /min [facility] Body temperature 2020-03-17 11:50:00 36.5 Irene [facility] Respiratory rate 2020-03-17 11:50:00 20 /min [facility] Body height 2020-03-17 11:50:00 162.6 cm [facility] Body weight Measured 2020-03-17 11:50:00 131.543 kg [facility] BMI 2020-03-17 11:50:00 49.78 kg/m2 [facility] Oxygen saturation in Arterial blood by Pulse oximetry 03-17 11:50:00 97 /min [facility] Systolic blood pressure 2019-12-10 17:43:00 147 mm[Hg] [facility] Diastolic blood pressure 2019-12-10 17:43:00 95 mm[Hg] [facility] Heart rate 2019-12-10 17:43:00 73 /min [facility] Body temperature 2019-12-10 17:24:00 37 Irene Mayda is [facility] Respiratory rate 2019-12-10 17:24:00 18 /min Mayda is [facility] Body height 2019-12-10 17:24:00 162.6 cm [facility] Body weight 2019-12-10 17:24:00 129.275 kg [facility] BMI 2019-12-10 17:24:00 48.92 kg/m2 [facility] Oxygen saturation in Arterial blood by Pulse oximetry 12-09 17:24:00 98 /min [facility] Respitory Rate 2018-03-25 20:00:00 [facility] Respitory Rate 2018-03-25 19:00:00 [facility] Systolic (mm Hg) 2018-03-25 19:00:00 [facility] Diastolic (mm Hg) 2018-03-25 19:00:00 [facility] Heart Rate 2018-03-25 17:00:00 [facility] [place] Respitory Rate 2018-03-25 17:00:00 [facility] [place] Temperature Oral (F) 2018-03-25 16:00:00 96.9 F [facility] [place] Heart Rate 2018-03-25 16:00:00 [facility] Heart Rate 2018-03-25 15:00:00 [facility] Systolic (mm Hg) 2018-03-25 14:00:00 [facility] Diastolic (mm Hg) 2018-03-25 14:00:00 [facility] Systolic (mm Hg) 2018-03-25 12:00:00 Timur [facility] [place] Diastolic (mm Hg) 2018-03-25 12:00:00 [facility] Weight 2018-03-25 10:14:00 [facility] Temperature Oral (F) 2018-03-25 10:00:00 97.3 F [facility] [place] Temperature Oral (F) 2018-03-25 04:00:00 97.2 F [facility] [place] Weight 2018-03-23 10:32:00 [facility] [place] BMI Calculated 2018-03-23 10:32:00 [facility] [place] Height 2018-03-23 10:32:00 162.56 cm [facility] [place] Height 2018-03-23 04:15:00 162.56 cm [facility] [place] Systolic (mm Hg) 2016-08-19 00:18:00 Timur [facility] [place] Diastolic (mm Hg) 2016-08-19 00:18:00 [facility] [place] Temperature Oral (F) 2016-08-19 00:18:00 98.0 F [facility] [place] Systolic (mm Hg) 2016-08-18 23:58:00 Timur rial [place] Diastolic (mm Hg) 2016-08-18 23:58:00 [facility] [place] Temperature Oral (F) 2016-08-18 23:58:00 98.4 F [facility] Respitory Rate 2016-08-18 23:58:00 [facility] [place] Weight 2016-08-18 19:09:00 [facility] [place] Heart Rate 2016-08-18 19:09:00 [facility] Respitory Rate 2016-08-18 19:09:00 [facility] Systolic (mm Hg) 2016-08-18 19:09:00 Timur rial [place] Diastolic (mm Hg) 2016-08-18 19:09:00 [facility] [place] Temperature Oral (F) 2016-08-18 19:09:00 98.2 F [facility] [place] BMI Calculated 2016-08-18 19:09:00 [facility] Height 2016-08-18 19:09:00 162.56 cm [facility] [place] Heart Rate 2012-03-17 20:37:00 [facility] Respitory Rate 2012-03-17 20:37:00 [facility] [place] Temperature Oral (F) 2012-03-17 20:37:00 96.4 F [facility] Systolic (mm Hg) 2012-03-17 20:37:00 Timur rial [place] Diastolic (mm Hg) 2012-03-17 20:37:00 [facility] [place] Respitory Rate 2012-03-17 16:49:00 [facility] Systolic (mm Hg) 2012-03-17 16:49:00 Timur rial [place] Temperature Oral (F) 2012-03-17 16:49:00 97.8 F [facility] Heart Rate 2012-03-17 16:49:00 [facility] Diastolic (mm Hg) 2012-03-17 16:49:00 [facility] [place] Temperature Oral (F) 2012-03-17 12:48:00 96.7 F [facility] [place] Systolic (mm Hg) 2012-03-17 12:48:00 Timur rial [place] Respitory Rate 2012-03-17 12:48:00 [facility] Heart Rate 2012-03-17 12:48:00 [facility] Diastolic (mm Hg) 2012-03-17 12:48:00 [facility] [place] Height 2012-03-16 20:42:00 162.56 cm [facility] [place] Weight 2012-03-16 20:42:00 [facility] Systolic (mm Hg) 2011-11-30 16:47:00 [facility] [place] Diastolic (mm Hg) 2011-11-30 16:47:00 [facility] Temperature Oral (F) 2011-11-30 16:47:00 98.8 F [facility] [place] Heart Rate 2011-11-30 16:47:00 [facility] Respitory Rate 2011-11-30 16:47:00 [facility] [place] Temperature Oral (F) 2011-11-30 14:00:00 98.8 F [facility] Respitory Rate 2011-11-30 14:00:00 [facility] [place] Systolic (mm Hg) 2011-11-30 14:00:00 Tim[facility] Diastolic (mm Hg) 2011-11-30 14:00:00 [facility] [place] Heart Rate 2011-11-30 14:00:00 [facility] Systolic (mm Hg) 2011-11-30 10:00:00 [facility] [place] Respitory Rate 2011-11-30 10:00:00 [facility] [place] Diastolic (mm Hg) 2011-11-30 10:00:00 [facility] Temperature Oral (F) 2011-11-30 10:00:00 98.8 F [facility] Heart Rate 2011-11-30 10:00:00 [facility] [place] Weight 2011-11-29 05:42:00 [facility] Height 2011-11-29 05:42:00 162.56 cm [facility] [place] Weight 2011-11-28 21:03:00 [facility] Height 2011-11-28 21:03:00 162.56 cm [facility] [place] Respitory Rate 2011-06-23 02:07:00 [facility] Temperature Oral (F) 2011-06-23 02:07:00 98.9 F [facility] [place] Diastolic (mm Hg) 2011-06-23 02:07:00 [facility] Systolic (mm Hg) 2011-06-23 02:07:00 [facility] Heart Rate 2011-06-23 02:07:00 [facility] [place] Diastolic (mm Hg) 2011-06-23 00:29:00 [facility] Systolic (mm Hg) 2011-06-23 00:29:00 Tim[facility] [place] Respitory Rate 2011-06-23 00:29:00 [facility] [place] Heart Rate 2011-06-23 00:29:00 [facility] [place] Systolic (mm Hg) 2011-06-22 23:31:00 [facility] [place] Diastolic (mm Hg) 2011-06-22 23:31:00 [facility] [place] Heart Rate 2011-06-22 23:31:00 [facility] [place] Respitory Rate 2011-06-22 23:31:00 [facility] Temperature Oral (F) 2011-06-22 22:58:00 99.6 F [facility] Temperature Oral (F) 2011-06-22 21:08:00 98.3 F [facility] [place] Weight 2011-06-22 18:47:00 [facility] Height 2011-06-22 18:47:00 162.56 cm [facility] Procedures Procedure Date / Time Performed Performing Clinician Sour e XRAY CHEST 2 VIEWS 2019-12-14 [facility] XRAY KNEE 3 VIEWS (ROUTINE W/ WT BEARING AP/LAT/SUN) 2019-08 11:32:59 Leandra Holman [facility] CHLAM/GC DNA AMPLI 2019-07-28 12:01:[address] [facility] MICROALBUMIN / CREATININE URINE RATIO 2019-07-28 12:01:00 Si Florian Gill [facility] HEMOGLOBIN A1C 2019-07-28 09:41:00 [facility] LIPID PROFILE 2019-07-28 09:41:[address] [facility] XRAY WRIST 3 VIEWS MIN 2019-07-28 09:05:26 BryantMarvin Wade [facility] XRAY HAND 3 VIEWS MIN 2019-07-28 09:05:26 Florian Eagle [facility] Partial hysterectomy [facility] Plan of Care Planned Activity Planned Date Details Comments Source Future Scheduled Test 2020-07-28 00:00:00 Hemoglobin A1c lucy surement (procedure) [code = 84916696] [facility] Future Scheduled Test 2020-07-20 00:00:00 DM Retinal Exam (Y early) [code = DM Retinal Exam (Yearly)] [facility] Scheduled Test 2020-04-21 00:00:00 DM Foot Exam (Year ly) [code = DM Foot Exam (Yearly)] [facility] Scheduled Test 2019-12-20 00:00:00 Screening for apple gnant neoplasm of colon (procedure) [code = 215857481] [facility] Scheduled Test 2019-11-04 00:00:00 Breast Cancer Scrn (Yearly) [code = Breast Cancer Scrn (Yearly)] [facility] Scheduled Test 2019-06-01 00:00:00 Screening for apple gnant neoplasm of cervix (procedure) [code = 117009533] [facility] Instructions Bronchitis (Acute) - Adult [facility] Encounters Start Date/Time End Date/Time Encounter Type Admission Type [facility] Care Department Encounter ID Source 2018-07-15 19:37:49 Inpatient [facility] [id number] [facility] 2018-07-15 10:39:54 Inpatient [facility] [id number] [facility] 2018-07-15 08:58:05 Inpatient [facility] [id number] [facility] 2018-07-14 13:05:31 Inpatient [facility] [id number] [facility] 2018-07-14 00:00:00 Inpatient [facility] [id number] [facility] 2020-06-09 09:00:00 2020-06-09 09:51:00 Departed Emergency Room ELISA LAROSE [facility] [id number] I [facility] 2019-09-28 00:00:00 2019-09-28 00:00:00 Outpatient [facility] [id number] [facility] 2019-08-04 00:00:00 2019-08-04 00:00:00 Outpatient [facility] [id number] [facility] 2019-07-09 08:50:40 2019-07-09 08:50:40 Outpatient [facility] [id number] [facility] 2019-07-07 00:00:00 2019-07-07 00:00:00 Outpatient [facility] [id number] [facility] 2019-06-09 11:31:19 2019-06-09 11:31:19 Outpatient [facility] [id number] [facility] 2019-05-14 00:00:00 2019-05-14 00:00:00 Outpatient [facility] [id number] [facility] 2019-04-21 13:33:48 2019-04-21 13:33:48 Outpatient [facility] [id number] [facility] 2019-04-21 11:27:02 2019-04-21 11:27:02 Outpatient [facility] [id number] [facility] 2019-04-21 00:00:00 2019-04-21 00:00:00 Outpatient [facility] [id number] [facility] 2019-04-20 11:01:20 2019-04-20 11:01:20 Outpatient [facility] [id number] [facility] 2019-03-25 08:17:49 2019-03-25 08:17:49 Outpatient [facility] [id number] [facility] 2019-03-25 00:00:00 2019-03-25 00:00:00 Outpatient [facility] [id number] [facility] 2019-03-25 00:00:00 2019-03-25 00:00:00 Outpatient [facility] [id number] [facility] 2019-03-24 15:58:51 2019-03-24 15:58:51 Outpatient [facility] [id number] [facility] 2019-03-24 15:42:11 2019-03-24 15:42:11 Outpatient [facility] [id number] [facility] 2019-03-24 00:00:00 2019-03-24 00:00:00 Outpatient [facility] [id number] [facility] 2019-03-20 00:00:00 2019-03-20 00:00:00 Outpatient [facility] [id number] [facility] 2019-03-10 00:00:00 2019-03-10 00:00:00 Outpatient [facility] [id number] [facility] 2019-02-20 11:17:35 2019-02-20 11:17:35 Outpatient [facility] [id number] [facility] 2019-02-20 09:40:47 2019-02-20 09:40:47 Outpatient [facility] [id number] [facility] 2019-02-03 08:35:52 2019-02-03 08:35:52 Outpatient [facility] [id number] [facility] 2019-01-20 09:06:27 2019-01-20 09:06:27 Outpatient [facility] [id number] [facility] 2019-01-20 00:00:00 2019-01-20 00:00:00 Outpatient [facility] [id number] [facility] 2018-12-30 08:41:52 2018-12-30 08:41:52 Outpatient [facility] [id number] [facility] 2018-12-19 10:01:23 2018-12-19 10:01:23 Outpatient [facility] [id number] [facility] 2018-12-15 10:18:54 2018-12-15 10:18:54 Outpatient [facility] [id number] [facility] 2018-12-15 08:58:19 2018-12-15 08:58:19 Outpatient [facility] [id number] [facility] 2018-12-15 00:00:00 2018-12-15 00:00:00 Outpatient [facility] [id number] [facility] 2018-12-12 14:42:22 2018-12-12 14:42:22 Outpatient [facility] [id number] [facility] 2018-11-17 10:25:11 2018-11-17 10:25:11 Outpatient [facility] [id number] [facility] 2018-11-10 16:16:28 2018-11-10 16:16:28 Outpatient [facility] [id number] [facility] 2018-11-04 10:04:49 2018-11-04 10:04:49 Outpatient [facility] [id number] [facility] 2018-11-04 10:02:54 2018-11-04 10:02:54 Outpatient [facility] [id number] [facility] 2018-11-03 15:42:02 2018-11-03 15:42:02 Outpatient [facility] [id number] [facility] 2018-11-03 14:18:59 2018-11-03 14:18:59 Outpatient [facility] [id number] [facility] 2018-10-27 00:00:00 2018-10-27 00:00:00 Outpatient [facility] [id number] [facility] 2018-10-23 00:00:00 2018-10-23 00:00:00 Outpatient [facility] [id number] [facility] 2018-10-20 00:00:00 2018-10-20 00:00:00 Outpatient [facility] [id number] [facility] 2018-10-03 00:00:00 2018-10-03 00:00:00 Outpatient [facility] [id number] [facility] 2018-08-22 00:00:00 2018-08-22 00:00:00 Outpatient [facility] [id number] [facility] 2018-08-07 00:00:00 2018-08-07 00:00:00 Outpatient [facility] [id number] [facility] 2018-08-05 11:05:11 2018-08-05 11:05:11 Outpatient [facility] [id number] [facility] 2018-08-05 00:00:00 2018-08-05 00:00:00 Outpatient [facility] [id number] [facility] 2018-07-13 14:18:55 2018-07-13 14:18:55 Emergency [facility] [id number] [facility] 2018-07-13 14:08:18 2018-07-13 14:08:18 Emergency [facility] [id number] [facility] 2018-07-13 14:00:08 2018-07-13 14:00:08 Inpatient [facility] [id number] [facility] 2018-06-13 11:33:51 2018-06-13 11:33:51 Outpatient [facility] [id number] [facility] 2018-06-02 14:33:23 2018-06-02 14:33:23 Outpatient [facility] [id number] [facility] 2018-03-28 14:20:18 2018-03-28 14:20:18 Outpatient [facility] [id number] [facility] 2018-03-22 19:21:00 2018-03-25 16:30:00 Outpatient Lino Landrum [facility] [id number] 2018-03-17 11:49:52 2018-03-17 11:49:52 Outpatient [facility] [id number] [facility] 2018-03-17 11:23:02 2018-03-17 11:23:02 Outpatient [facility] [id number] [facility] 2018-03-17 10:12:32 2018-03-17 10:12:32 Outpatient [facility] [id number] [facility] 2018-03-14 16:16:19 2018-03-14 16:16:19 Outpatient [facility] [id number] [facility] 2018-02-19 07:50:51 2018-02-19 07:50:51 Outpatient [facility] [id number] [facility] 2018-01-27 10:41:48 2018-01-27 10:41:48 Outpatient [facility] [id number] [facility] 2016-08-18 13:05:00 2016-08-18 18:43:00 Outpatient Ariadne Harris [facility] [id number] Results Test Description Test Time Test Comments Results Result Comments Source CXR 1 VEW - HOPD 2020-06-09 09:20:00 [place] [address] Patient Name: GEMINI GARCIA MR #: [id number] : 1965 Age/Sex: 54/F Req #: [id number] Adm Physician: Ordered by: ELISA LAROSE MD Report #: [id number] Location: [facility] Room/Bed: Procedure: [id number] HOPD/CXR 1 VEW - HOPD Exam Date: 06/09/20 Exam Time: 908 REPORT STATUS: Signed EXAMINATION: CXR 1 VEW - HOPD INDICATION: Cough COMPARISON: None FINDINGS: LINES/TUBES:None LUNGS:The lungs are well-inflated. No focal consolidation or pulmonary edema. PLEURA:No pleural effusion or pneumothorax. MEDIA STINUM:The cardiomediastinal silhouette appears normal in size and shape. BONES/SOFT TISSUES:No acute osseous injury. ABDOMEN:No free air under the diaphragm. IMPRESSION: No focal pneumonia or pulmonary edema. Signed by: Tram Rivas MD on 06/09/2020 9:20 AM Dictated By: TRAM RIVAS MD 9 Transcribed By: CATRACHITO on 06/09/20919 COPY TO: ELISA LAROSE MD XRAY CHEST 2 VIEWS 2019-12-14 13:35:02 IMPRESSIO N: No acute thoracic abnormality. Dictated By: Jose Noble MD, 12/14/2019 1:27 PM I have reviewed the study and agree with the findings in this report. Signed By: Marqutia Walker MD, 12/14/2019 1:35 PM Interface, Rad/Mammog In - 12/14/2019 1:40 PM CDTEXAMINATION: XRAY CHEST 2 VIEWS INDICATION: cough x 1 week COMPARISON: Chest radiograph 03/17/2018, chest CT 11/20/2017 FINDINGS: TUBES and LINES: None.LUNGS: Lungs are well inflated. Lungs are clear. There is noevidence of pneumonia or pulmonary edema.PLEURA: No pleural effusion or pneumothorax.HEART AND MEDIASTINUM: The cardiomediastinal silhouette isunremarkable. BONES AND SOFT TISSUES: There are degenerative changes in the thoracicspine. Soft tissues are unremarkable.UPPER ABDOMEN: No free air under the diaphragm. 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 Dictated By: Isabel Hutchinson MD, 09/01/2019 3:19 PM I have reviewed the study and agree with the findings in this report. Signed By: Arnoldo Smith MD, 09/01/2019 3:27 PM Interface, Rad/Mammog In - 09/01/2019 3:32 PM CSTEXAM: X-ray right knee, 3 weight-bearing views INDICATION: right knee pain/ swelling s/p traumaCOMPARISON: Knee radiographs from 02/26/2017DISCUSSION: Right knee: Moderate medial compartment and mild lateral compartment joint spacenarrowing .Moderate osteophyte proliferation, with the medial greater than thelateral compartment.Moderate joint space narrowing and osteophytosis of the patellofemoralcompartment. No acute fracture or dislocation.No joint effusion(s).The soft tissues are otherwise unremarkable.IMPRESSIONIMPRESSION: Tricompartmental osteoarthrosis with Kellgren-Wes grade 3, moderateosteoarthrosis of the right knee medial compartment(s).Dictated By: Isabel Hutchinson MD, 09/01/2019 3:19 PMI have reviewed the study and agree with the findings in this report.Signed By: Arnoldo Smith MD, 09/01/2019 3:27 PM [facility] - CT ABD PELVIS W/O CONT 2019-08-05 17:23:00 N radha: GEMINI GARCIA [facility] : 1965 Age/S: 54 / F [id number] [facility] Unit #: [id number] Loc: [place] [address] Phys: Joseph Almaguer MD Acct: [id number] Dis Date: Status: REG ER PHONE #: [phone] Exam Date: 08/05/2019 1709 FAX #: Reason: fever, abdominal pain EXAMS: CPT: [id number] CT ABD PELVIS W/O CONT 93168 - CT ABD PELVIS W/O CONT HISTORY: fever, abdominal pain COMPARISON: None. TECHNIQUE: Axial images of the abdomen and pelvis were obtained without contrast. Coronal and sagittal reformats were provided. One or more of the following dose reduction techniques were used: Automated exposure control, adjustment of the mA and/or kV according to patient size, and/or utilization of iterative reconstruction technique. FINDINGS: Lower thorax: Unremarkable. Hepatobiliary: Unremarkable. No biliary ductal dilatation. Gallbladder: No calcified gallstones are identified. The gallbladder wall appears normal. Spleen: Unremarkable. Pancreas: Unremarkable. Adrenals: Unremarkable. Kidneys/ureters: Small parapelvic cysts are present. No hydronephrosis or nephrolithiasis is seen. Bowel: Oral contrast was not given. The stomach and small bowel loops are fluid-filled but nondistended. The appendix is normal. The large bowel is unremarkable. Pelvic organs/bladder: The urinary bladder is relatively empty. The uterus is absent. Vessels: Unremarkable. Lymph nodes: No lymphadenopathy. Peritoneum/Retroperitoneum: No free air or free fluid is present. PAGE 1 Signed Report (CONTINUED) Name[facility] 1965 Age/S: 54 / F [id number] [address] Unit #: [id number] Loc: [place] [address] Phys: Joseph Almaguer MD Acct: [id number] Dis Date: Status: REG ER PHONE #: [phone] Exam Date: 08/05/2019 1709 FAX #: Reason: fever, abdominal pain EXAMS: CPT: [id number] CT ABD PELVIS W/O CONT 16410 <Continued> Bones/soft tissues: No destructive bony lesions. IMPRESSION: No acute abdominal or pelvic finding is identified. LOCATION: R16 at 1723 Reported and signed by: Jordy Oswald M.D. CC: Joseph Almaguer MD Technologist:Arnaud Caballero, RT(R)(CT) CTDI: DLP: Trnscb Date/Time: 08/05/2019 (172) [email or web address] Orig Print D/T: S: 08/05/2019 (172) PAGE 2 Signed Report - XR CHEST 1 V 2019-08-05 16:32:00 Name: GEMINI [address]ONEY RD [facility] : 1965 Age/S: 54 / F [id number] [address] Unit #: [id number] Loc: [place] [address] Phys: Joseph Almaguer MD Acct: [id number] Dis Date: Status: REG ER PHONE #: [phone] Exam Date: 08/05/2019 1628 FAX #: Reason: COUGH EXAMS: CPT: [id number] XR CHEST 1 V 97900 Fluoro Time: DAP (Gy m2): Air Kerma (mGy): EXAMINATION: - XR CHEST 1 V. LOCATION: S 17. HISTORY: COUGH. COMPARISON: Radiograph dated 06/23/2011. TECHNIQUE: Single AP view of the chest was obtained. FINDINGS: The heart is normal in size. The lungs are clear. No acute osseous abnormality is identified. IMPRESSION: No acute cardiopulmonary abnormality. at 1632 Reported and signed by: Dariusz Toledo M.D. CC: Joseph Almaguer MD PAGE 1 Signed Report Name: [facility] [place] [facility] 1965 Age/S: 54 / F [id number] [address] Unit #: [id number] Loc: [place] [address] Phys: Joseph Almaguer MD Acct: [id number] Dis Date: Status: REG ER PHONE #: [phone] Exam Date: 08/05/2019 1628 FAX #: Reason: COUGH EXAMS: CPT: [id number] XR CHEST 1 V 09915 Fluoro Time: DAP (Gy m2): Air Kerma (mGy): <Continued> Technologist: Keren Matos, RT(R)(CT)(MRI) Trnscb Date/Time: 08/05/2019 (1632) [email or web address] Orig Print D/T: S: 08/05/2019 (2910) PAGE 2 Signed Report BASIC METABOLIC PANEL 2019-08-05 16:20:00 Test Item SODIUM (test code = NA) 138 mmol/L 134-147 N POTASSIUM (test code = K) 3.5 mmol/L 3.4-5.0 N CHLORIDE (test code = CL) 105 mmol/L 100-108 N CARBON DIOXIDE (test code = CO2) 27 mmol/L 21-32 N ANION GAP (test code = GAP) 6.0 GAP calc 4.0-15.0 N GLUCOSE (test code = GLU) 106 MG/DL 70-110 N BLOOD UREA NITROGEN (test code = BUN) 12 MG/DL 7-18 N GLOMERULAR FILTRATION RATE (test code = GFR) >=60 max estimate estG FR >60 CREATININE (test code = CREAT) 1.0 MG/DL 0.6-1.0 N CALCIUM (test code = CA) 8.6 MG/DL 8.5-10.1 N HEPATIC FUNCTION [id number] 16:20:00* Test Item Value Reference Range Interpretation Comments TOTAL PROTEIN (test code = PROT) 7.6 G/DL 6.4-8.2 N ALBUMIN (test code = ALB) 3.3 G/DL 3.4-5.0 L BILIRUBIN TOTAL (test code = BILT) 0.50 MG/DL 0.2-1.2 N BILIRUBIN DIRECT (test code = BILD) 0.10 MG/DL 0.00-0.30 N BILIRUBIN INDIRECT (test code = BILIND) 0.40 MG/DL 0.2-1.2 N SGOT/AST (test code = AST) 25 Unit/L 15-37 N SGPT/ALT (test code = ALT) 38 Unit/L 12-78 N ALKALINE PHOSPHATASE TOTAL (test code = ALKP) 96 Unit/L 45-117 N [id number] 16:20:00* Test Item Value Reference Range Interpretation Comments LIPASE (test code = LIP) 56 Unit/L 114-286 L BASIC METABOLIC [id number] 16:16:00* Test Item Value Reference Range Interpretation Comments SODIUM (test code = NA) 138 mmol/L 134-147 N POTASSIUM (test code = K) 3.5 mmol/L 3.4-5.0 N CHLORIDE (test code = CL) 105 mmol/L 100-108 N CARBON DIOXIDE (test code = CO2) 27 mmol/L 21-32 N ANION GAP (test code = GAP) 6.0 GAP calc 4.0-15.0 N GLUCOSE (test code = GLU) 106 MG/DL 70-110 N BLOOD UREA NITROGEN (test code = BUN) 12 MG/DL 7-18 N GLOMERULAR FILTRATION RATE (test code = GFR) estGFR >60 CREATININE (test code = CREAT) MG/DL 0.6-1.0 CALCIUM (test code = CA) 8.6 MG/DL 8.5-10.1 N HEPATIC FUNCTION [id number] 16:16:00* Test Item Value Reference Range Interpretation Comments TOTAL PROTEIN (test code = PROT) G/DL 6.4-8.2 ALBUMIN (test code = ALB) G/DL 3.4-5.0 BILIRUBIN TOTAL (test code = BILT) MG/DL 0.2-1.2 BILIRUBIN DIRECT (test code = BILD) MG/DL 0.00-0.30 BILIRUBIN INDIRECT (test code = BILIND) MG/DL 0.2-1.2 SGOT/AST (test code = AST) Unit/L 15-37 SGPT/ALT (test code = ALT) Unit/L 12-78 ALKALINE PHOSPHATASE TOTAL (test code = ALKP) Unit/L 45-117 [id number] 16:16:00* Test Item Value Reference Range Interpretation Comments LIPASE (test code = LIP) 56 Unit/L 114-286 L CBC W/AUTO [id number] 16:13:00* Test Item Value Reference Range Interpretation Comments WHITE BLOOD CELL (test code = WBC) 7.2 K/mm3 3.5-11.0 N RED BLOOD CELL (test code = RBC) 4.85 M/mm3 4.70-6.10 N HEMOGLOBIN (test code = HGB) 13.1 G/DL 10.4-14.9 N HEMATOCRIT (test code = HCT) 39.2 % 31.5-44.1 N MEAN CELL VOLUME (test code = MCV) 80.8 Fl 84.5-98.6 L MEAN CELL HGB (test code = MCH) 27.0 pg 27.0-34.2 N MEAN CELL HGB CONCETRATION (test code = MCHC) 33.4 G/DL 31.5-34. 0 N RED CELL DISTRIBUTION WIDTH (test code = RDW) 15.1 SD 11.5-14. 5 H PLATELET COUNT (test code = PLT) 213.0 K/mm3 150-450 N MEAN PLATELET VOLUME (test code = MPV) 11.10 fL 7.0-10.5 H NEUTROPHIL % (test code = NT%) 84.4 % 40-76 H LYMPHOCYTE % (test code = LY%) 10.9 % 20.5-51.1 L MONOCYTE % (test code = MO%) 4.0 % 1.7-9.3 N EOSINOPHIL % (test code = EO%) 0.7 % 0.0-6.0 N BASOPHIL % (test code = BA%) 0.0 % 0.0-2.0 N NEUTROPHIL # (test code = NT#) 6.05 K/mm3 1.8-7.6 N LYMPHOCYTE # (test code = LY#) 0.8 K/mm3 0.6-3.2 N MONOCYTE # (test code = MO#) 0.3 K/mm3 0.3-1.1 N EOSINOPHIL # (test code = EO#) 0.1 K/mm3 0.0-0.4 N BASOPHIL # (test code = BA#) 0.0 K/mm3 0.0-0.1 N MANUAL DIFF REQUIRED (test code = MDIFF) NO DIFF/SCN CRITERIA UA RFLX MICR CULT IF [id number] 15:48:00* Test Item Value Reference Range Interpretation Comments UA COLOR (test code = COLU) YELLOW discript YEL/STRAW UA APPEARANCE (test code = APPU) CLEAR discript CLEAR UA GLUCOSE DIPSTICK (test code = DGLUU) NEGATIVE mg/dL NEG UA BILIRUBIN DIPSTICK (test code = BILU) NEGATIVE mg/dL NEG UA KETONE DIPSTICK (test code = KETU) NEGATIVE mg/dL NEG UA SPECIFIC GRAVITY (test code = SGU) 1.015 SG 1.005-1.030 UA BLOOD DIPSTICK (test code = GENA) NEGATIVE mg/DL NEG UA PH DIPSTICK (test code = JASPREET) 8.0 pH UNITS 5.0-7.0 UA PROTEIN DIPSTICK (test code = PROU) NEGATIVE mg/dL NEG UA UROBILINIOGEN DIPSTICK (test code = URO) 0.2 mg/dL <2.0 UA NITRITE DIPSTICK (test code = MARISOL) NEGATIVE SCREEN NEG UA LEUKOCYTE ESTERASE DIPSTICK (test code = LEUU) NEGATIVE Leuk/mcL NEGATIVE UA CULTURE NEEDED? (test code = UACULT) Criteria Culture CHK SOURCE OF URINE: CLEAN CATCHIndication for culture: Dysuria/FrequencyUA RFLX MICR CULT IF [id number] 15:48:00* Test Item Value Reference Range Interpretation Comments UA COLOR (test code = COLU) YELLOW discript YEL/STRAW UA APPEARANCE (test code = APPU) CLEAR discript CLEAR UA GLUCOSE DIPSTICK (test code = DGLUU) NEGATIVE mg/dL NEG UA BILIRUBIN DIPSTICK (test code = BILU) NEGATIVE mg/dL NEG UA KETONE DIPSTICK (test code = KETU) NEGATIVE mg/dL NEG UA SPECIFIC GRAVITY (test code = SGU) 1.015 SG 1.005-1.030 UA BLOOD DIPSTICK (test code = GENA) NEGATIVE mg/DL NEG UA PH DIPSTICK (test code = JASPREET) 8.0 pH UNITS 5.0-7.0 UA PROTEIN DIPSTICK (test code = PROU) NEGATIVE mg/dL NEG UA UROBILINIOGEN DIPSTICK (test code = URO) 0.2 mg/dL <2.0 UA NITRITE DIPSTICK (test code = MARISOL) NEGATIVE SCREEN NEG UA LEUKOCYTE ESTERASE DIPSTICK (test code = LEUU) NEGATIVE Leuk/mcL NEGATIVE SOURCE OF URINE: CLEAN CATCHIndication for culture: Dysuria/Frequency Hemoglobin [id number] 10:01:00* Test Item Value Reference Range Interpretation Comments Hemoglobin A1c (test code = 4548-4) 6.2 % 4.3-6.1 H Estimated Average Glucose (test code = 28515633) 131 mg/dL 70-11 0 H Lab Interpretation (test code = 18998-0) Abnormal [facility]Gc DNA [id number] 18:37:00* Test Item Value Reference Range Interpretation Comments Chlamydia trachomatis (test code = 37172-9) Negative Negative N. gonorrhoeae (test code = 67633-1) Negative Negative MABLE (test code = MABLE) This test utilizes [employer] Combo 2 Assay for target amplification of rRNA for the qualitative detection of Chlamydia trachomatis and Neisseria gonorrhoeae. Lab Interpretation (test code = 06186-9) Normal [facility] [id number] 15:37:00* Test Item Value Reference Range Interpretation Comments Cholesterol (test code = 2093-3) 196.0 mg/dL <=200.0 Triglyceride (test code = 43937578) 174 mg/dL <150 H HDL (test code = 2085-9) 35.0 mg/dL See Reference Range Narrative . LDL (test code = 73696-3) 126 mg/dL <100 H Op timal: < 100.0 mg/dLNear Optimal: 120-129 mg/dLBorderline: 130-159 mg/dLHigh: 160-189 mg/dLVery High: >=190 mg/dL Patient Fasting? (test code = 16327668) No Drank coffee with cream and sugar MABLE (test code = MABLE) Patient is not fasting. For a triglyceride result greater than 440 mg/dL, consider re-testing when the patient is in a fasting state. Lab Interpretation (test code = 10938-8) [facility]normal [facility] Urine [id number] 15:07:00* Test Item Value Reference Range Interpretation Comments Microalbumin, Random (test code = 24901049) 0.8 mg/dL <30.0 Creatinine, Urine (test code = 29817124) 176 mg/dL 20-320 Urine Microalbumin (test code = 04539975) 4.5 mg/g 0-30 Lab Interpretation (test code = 23176-7) Normal [facility] [id number] 11:12:15IMPRESSION: Scattered degenerative change. No osseous erosion Dictated By: Insun Nguyễn MD, 07/28/2019 9:21 AM I have reviewed the study and agree with the findings in this report. Signed By: Arnoldo Smith MD, 07/28/2019 11:12 AM Interface, Wilfred/Terryog In - 07/28/2019 11:17 AM CSTEXAMINATION: XRAY HAND 3 VIEWS MIN, XRAY WRIST 3 VIEWS MINSIDE: RightINDICATION: hand pain COMPARISON: Right thumb radiograph 10/12/2014 FINDINGS:BONE:No acute fracture.JOINTS:Scattered degenerative change. No osseous erosionSOFT TISSUES:Normal.IMPRESSIONIMPRESSION: Scattered degenerative change. No osseous erosionDictated By: Jovon Nguyễn MD, 07/28/2019 9:21 AMI have reviewed the study and agree with the findings in this report.Signed By: Arnoldo Smith MD, 07/28/2019 11:12 [facility] [id number] 11:12:15 IMPRESSION: Scattered degenerative change. No osseous erosion Dictated By: Jovon Nguyễn MD, 07/28/2019 9:21 AM I have reviewed the study and agree with the findin gs in this report. Signed By: Arnoldo Smith MD, 07/28/2019 11:12 AM Interface, Wilfred/ rPiya In - 07/28/2019 11:17 AM CSTEXAMINATION: XRAY HAND 3 VIEWS MIN, XRAY WRIS T 3 VIEWS MINSIDE: RightINDICATION: hand pain COMPARISON: Right thumb radiograph 10/12/2014 FINDINGS:BONE:No acute fracture.JOINTS:Scattered degenerative da nge. No osseous erosionSOFT TISSUES:Normal.IMPRESSIONIMPRESSION: Scattered degen erative change. No osseous erosionDictated By: Jovon Nguyễn MD, 07/28/2019 9:21 AM I have reviewed the study and agree with the findings in this report.Signed By: Arnoldo Smith MD, 07/28/2019 11:12 [facility] METABOLIC [id number] 12:04:00* Test Item Value Reference Range Interpretation Comments SODIUM (BEAKER) (test code = 381) 143 meq/L 135-148 POTASSIUM (BEAKER) (test code = 379) 3.6 meq/L 3.6-5.5 CHLORIDE (BEAKER) (test code = 382) 101 meq/L 98-106 CO2 (BEAKER) (test code = 355) 30 meq/L 24-32 BLOOD UREA NITROGEN (BEAKER) (test code = 354) 9 mg/dL 10-26 L CREATININE (BEAKER) (test code = 358) 0.72 mg/dL 0.50-1.20 GLUCOSE RANDOM (BEAKER) (test code = 652) 123 mg/dL 70-110 H CALCIUM (BEAKER) (test code = 697) 9.7 mg/dL 8.5-10.5 EGFR (BEAKER) (test code = 1092) 102 mL/min/1.73 sq m ESTIMATED GFR IS NOT ACCURATE CREATININE CLEARANCE IN PREDICTING GLOMERULAR FILTRATION RATE. ESTIMATED GFR IS NOT APPLICABLE FOR DIALYSIS PATIENTS. HEPATIC FUNCTION [id number] 12:04:00* Test Item Value Reference Range Interpretation Comments TOTAL PROTEIN (BEAKER) (test code = 770) 8.4 gm/dL 6.0-8.5 ALBUMIN (BEAKER) (test code = 1145) 4.4 g/dL 3.5-5.0 BILIRUBIN TOTAL (BEAKER) (test code = 377) 0.5 mg/dL 0.1-1.2 BILIRUBIN DIRECT (BEAKER) (test code = 706) 0.2 mg/dL 0.0-0.4 ALKALINE PHOSPHATASE (BEAKER) (test code = 346) 128 U/L 30-115 H AST (SGOT) (BEAKER) (test code = 353) 21 U/L 5-40 ALT (SGPT) (BEAKER) (test code = 347) 33 U/L 5-50 [id number] 12:04:00* Test Item Value Reference Range Interpretation Comments LIPASE (BEAKER) (test code = 749) 44 U/L 40-240 CBC W/PLT COUNT & AUTO [id number] 11:59:00* Test Item Value Reference Range Interpretation Comments WHITE BLOOD CELL COUNT (BEAKER) (test code = 775) 9.5 K/ L 4.0- 10.0 RED BLOOD CELL COUNT (BEAKER) (test code = 761) 5.03 M/ L 4.00-5 .00 H HEMOGLOBIN (BEAKER) (test code = 410) 13.5 GM/DL 12.0-15.0 HEMATOCRIT (BEAKER) (test code = 411) 41.8 % 36.0-45.0 MEAN CORPUSCULAR VOLUME (BEAKER) (test code = 753) 83.1 fL 82. 0-99.0 MEAN CORPUSCULAR HEMOGLOBIN (BEAKER) (test code = 751) 26.8 pg 27.0-33.0 L MEAN CORPUSCULAR HEMOGLOBIN CONC (BEAKER) (test code = 752) 32.2 GM/DL 32.0-36.0 RED CELL DISTRIBUTION WIDTH (BEAKER) (test code = 412) 14.7 % 10.3-14.2 H PLATELET COUNT (BEAKER) (test code = 756) 276 K/CU MM 150-430 MEAN PLATELET VOLUME (BEAKER) (test code = 754) 9.1 fL 6.5-10 .5 NEUTROPHILS RELATIVE PERCENT (BEAKER) (test code = 429) 50 % LYMPHOCYTES RELATIVE PERCENT (BEAKER) (test code = 430) 32 % MONOCYTES RELATIVE PERCENT (BEAKER) (test code = 431) 4 % EOSINOPHILS RELATIVE PERCENT (BEAKER) (test code = 432) 13 % BASOPHILS RELATIVE PERCENT (BEAKER) (test code = 437) 1 % NEUTROPHILS ABSOLUTE COUNT (BEAKER) (test code = 670) 4.75 K/ L 1.80-8.00 LYMPHOCYTES ABSOLUTE COUNT (BEAKER) (test code = 414) 3.01 K/ L 1.48-4.50 MONOCYTES ABSOLUTE COUNT (BEAKER) (test code = 415) 0.42 K/ L 0. 00-1.30 EOSINOPHILS ABSOLUTE COUNT (BEAKER) (test code = 416) 1.24 K/ L 0.00-0.50 H BASOPHILS ABSOLUTE COUNT (BEAKER) (test code = 417) 0.07 K/ L 0. 00-0.20 RAD, CHEST, 2 [id number] 10:47:00Reason for exam:->chest painShould this be performed at the bedside?->NoFINAL REPORT TECHNIQUE: 2 views of the chest. COMPARISON: 01/27/2011 FINDINGS: The cardiac silhouette is within normal limits. Mediastinum is unremarkable. Lungs are clear. No acute skeletal abnormality. Soft tissues appear unremarkable. IMPRESSION: No acute cardiopulmonary disease. Signed: Ayaan Gastonort Verified Date/Time: 10/22/2018 10:47:48 Reading Location: [facility] Radiology Reading Room , KNEE, COMPLETE (4 VIEWS), [id number] 10:43:00Reason for exam:->fallIs the patient ?->NoShould this be performed at the bedside?->NoFINAL REPORT COMPARISON: None TECHNIQUE: Multiple views of the right knee. FINDINGS: There are no acute fractures or dislocations. No radiopaque foreign bodies. Mild to moderate degenerative changes of the knee joint. No lytic or blastic lesions. Some fullness of the suprapatellar soft tissues could be due to joint effusion. IMPRESSION: No acute bony abnormality. Signed: Ayaan Gaston MDReport Verified Date/Time: 10/22/2018 10:43:59 Reading Location: [facility] Radiology Reading Room JSRMIQ7018-99-43 16:33:00* Test Item Value Reference Range Interpretation Comments PTT (test code = PTT) 63.5 s 22.9-35.8 [facility] HermannCHEM NWLZW0959-69-90 06:41:44381Tuosjhev HermannCHEM PANEL 2018-03-24 06:41:00* Test Item Value Reference Range Interpretation Comments B/C Ratio (test code = B/C Ratio) 19 1 6-25 [facility]ann[facility] PKVBG4332-46-11 06:41:004.2[facility]annCHEM PANEL 2018-03-24 06:41:00* Test Item Value Reference Range Interpretation Comments A/G Ratio (test code = A/G Ratio) 0.7 1 0.7-1.6 [facility]annCHEM PJOHH6399-36-79 06:41:000.4[facility] HermannCHEM PANEL 2018-03-24 06:41:0011.9[facility] HermannCHEM EFMMK3807-17-98 06:41:79935Ndjtlsig HermannCHEM EMXSQ3285-31-58 06:41:0025[facility]annCHEM XBWQK0180-36-08 06:41:0014[facility]annCHEM EGDMS2071-86-38 06:41:0015[facility]annCHEM RVOQN9298-60-79 06:41:30924Pnwupxul HermannCHEM CYCNJ8585-78-92 06:41:000.77 [facility]annCHEM FYOZT3019-30-03 06:41:003.9[facility] HermannCHEM PANEL 2018-03-24 06:41:51393Lismwnvc HermannCHEM MYKFT2478-44-59 06:41:57904Qiekvfxm HermannCHEM BLYIV5817-47-29 06:41:002.9[facility] HermannCHEM ASOMN7160-04-68 06:41:008.1[facility] HermannCHEM LIPZC1690-06-84 06:41:0026[facility]annCHEM OPIPI9420-61-03 06:41:007.1[facility] GzcolhiKHUAZOFTHC6566-86-13 06:41:000.6 [facility] MlwnscnCWBSAOZFMG9206-02-46 06:41:002.8[facility] HermannHEMATOLOGY 2018-03-24 06:41:007.0[facility] CnexnnzCDMXSEXEKC1700-02-68 06:41:000.8[facility] RikixixTUMUMPKIEV4507-53-13 06:41:004.1[facility] MbkxhmcLTVYJPILOE3494-23-74 06:41:000.1[facility] HmmjrjdWIMGCHHXFJ6574-58-74 06:41:000.3[facility] LYAEJREZAF0855-38-30 06:41:004.4[facility] BjnviupKLLVHOXNPS4661-61-79 06:41:00 34.2[facility] OevguwqPIKMRTLZTC2646-14-97 06:41:0053.9[facility] HermannHEMATOLOGY 2018-03-24 06:41:0014.7[facility] NmpnwbsHTTMHQNOGC8372-78-62 06:41:83786Osamyhic ApjjwtgSGIDRTTCVH1627-26-45 06:41:008.8[facility] XcgpjfuOHPSCQJDOL0234-59-04 06:41:0038.5[facility] FftrjmpHATNISEWRQ6875-00-50 06:41:00* Test Item Value Reference Range Interpretation Comments MCH (test code = MCH) 26.6 pg 27.0-31.0 [facility] ClcyegpUPMYWUNDIL8486-11-09 06:41:0081.5[facility] HermannHEMATOLOGY 2018-03-24 06:41:0032.6[facility] YdcxdagKNGWNJTMMP6500-91-33 06:41:0012.6[facility] FctmgnjWCIMSQWMYX2768-01-31 06:41:004.72[facility] QpuavglUPWPJRGBUT5576-40-48 06:41:008.2[facility] BugoyetVTCCIZDJEG3572-67-56 06:41:00* Test Item Value Reference Range Interpretation Comments PT (test code = PT) 14.0 s 12.0-14.7 [facility] UugvfgoCPDGCEMZGA9274-46-41 06:41:00* Test Item Value Reference Range Interpretation Comments INR (test code = INR) 1.08 1 0.85-1.17 [facility] NafrarcBCEQREAIMG5946-99-72 06:41:00* Test Item Value Reference Range Interpretation Comments PTT (test code = PTT) 34.2 s 22.9-35.8 [facility] HermannCARDIAC PXXVMFZ3748-55-05 21:43:000.04[facility] HermannHEMATOLOGY 2018-03-23 21:43:0058.2[facility] UkpbwipCZKIOOOBTV2476-33-75 21:43:000.3[facility] IauqpuqQCQLBKTDTZ3844-57-64 21:43:000.1[facility] BznphqkQVEAXOCNOG8410-11-67 21:43:003.8[facility] RubvfjaEKFRYCLCVS9563-74-82 21:43:001.2[facility] TVVZFDUDLA6712-38-82 21:43:0031.4[facility] VuxhxyqVMVELTGGRQ2822-53-35 21:43:00 5.4[facility] ZucjktfTIOKTFXYHG9102-71-65 21:43:002.5[facility] HermannHEMATOLOGY 2018-03-23 21:43:000.4[facility] VmznejhEZOHIADMAG7350-89-39 21:43:004.6[facility] FkwenuzPXGSAJAJCS6605-79-09 21:43:00* Test Item Value Reference Range Interpretation Comments INR (test code = INR) 1.11 1 0.85-1.17 [facility] PrxyqdfGPUMHULQDA5850-14-92 21:43:00* Test Item Value Reference Range Interpretation Comments PT (test code = PT) 14.3 s 12.0-14.7 [facility] ZzjlgdeVDEQZFPTNV1373-62-41 21:43:00* Test Item Value Reference Range Interpretation Comments PTT (test code = PTT) 34.4 s 22.9-35.8 [facility] QkmspygDILZCNBFKV7790-61-20 21:43:00* Test Item Value Reference Range Interpretation Comments MCH (test code = MCH) 27.3 pg 27.0-31.0 [facility] OzdyljwMGBATXKDOV2138-48-03 21:43:0081.0[facility] HermannHEMATOLOGY 2018-03-23 21:43:0014.5[facility] VzeiqieNNSFDPGMQI4812-31-73 21:43:0033.6[facility] XibuxapZZHHVHQCFC4426-81-48 21:43:0012.8[facility] IczlxkoJUBTGBWGFK5000-83-71 21:43:0038.1[facility] VltjqrfKLZCVHSRBM8133-79-98 21:43:84124Mioevcdt Isaías ZFHITOLWUM9440-43-28 21:43:008.6[facility] ZzqecxlBCFKSGILPO6638-34-99 21:43:00 4.70[facility] WjmyyxoUJMUIRXDYW9408-62-11 21:43:007.9[facility] HermannELECTROLYTES 2018-03-23 19:12:003.8[facility] HermannCARDIAC NFVMKWK8950-24-51 10:42:0069 [facility] HermannCARDIAC TUJAWRJ1398-63-98 10:42:00<0.02[facility] HermannCARDIAC XRBEKWK9369-02-01 04:43:00<0.02[facility] HermannCARDIAC TIRXMYI6718-01-03 04:43:0083[facility] HermannCARDIAC TSWSDXB7648-03-86 04:43:00<0.6[facility] CARDIAC EWSCLRQ4720-50-98 04:43:00<0.5[facility] KqbqmmoURAPGAPMGGLS3576-08-92 04:43:0014.2[facility] PbzbsqfLMHYBMTDWPSJ6394-66-28 04:43:0090[facility] CFQVTZWIIETL2466-12-23 04:43:47567Dqcuvuau RzceavaVPHCDHSWQLNC4137-12-27 04:43:0013[facility] VcaxdmnUOAVEGSFGONH6123-39-98 04:43:000.85[facility] MFRFIFSTXJWF6213-61-00 04:43:92773Lwpkbuer YgpphniBCPNPEGXKKWZ6720-32-96 04:43:59713Zszhewjm JpjpipaPEJOVBCXOOBJ4507-19-23 04:43:003.2[facility] QLKAQEXKNOIJ8591-29-20 04:43:008.9[facility] CrhyqggBCAMZURDFRTH2415-68-68 04:43:0028[facility] GkfzloaVTTFBVHRMM3345-68-65 04:43:002.7[facility] WNCQVINRLY1024-43-97 04:43:005.3[facility] MfhlszyDNULGUVRXW1093-36-56 04:43:003.1 [facility] GgqqdgeQSYQZNOVHH5745-38-05 04:43:005.7[facility] HermannHEMATOLOGY 2018-03-23 04:43:000.3[facility] QikfuwgMOPZADDTLE0209-22-02 04:43:000.5[facility] NesjemkVDHNQGPAON7118-79-06 04:43:000.1[facility] CxldnhrSKXRWILHYE2668-75-45 04:43:000.6[facility] CipkckgMIZVAASMRB6875-73-52 04:43:0030.7[facility] QZDKYPTOWZ0116-89-14 04:43:0059.9[facility] FgpvfkuESBFQPMQJA2365-02-83 04:43:00 12.4[facility] ZwetynwECJEHWILOF0908-44-19 04:43:008.8[facility] HermannHEMATOLOGY 2018-03-23 04:43:004.56[facility] WqkpgrzRIPXRUQDXV8408-50-13 04:43:0036.8[facility] UchrtizNKBUMHVMLB2816-61-77 04:43:0080.7[facility] JwnoseiVAQURXVSVD4397-17-31 04:43:0033.7[facility] EembjqcNDEBWMFOAD0850-56-04 04:43:00* Test Item Value Reference Range Interpretation Comments MCH (test code = MCH) 27.2 pg 27.0-31.0 [facility] NtcpsddYOYHJXHBVY9700-83-21 04:43:0014.9[facility] HermannHEMATOLOGY 2018-03-23 04:43:008.4[facility] XuyvovyRFJTJHBPZC6189-89-49 04:43:16464Tbhlakel HrktrcxHOFZVV1420-28-22 04:43:00* Test Item Value Reference Range Interpretation Comments VLDL (test code = VLDL) 57 1 [facility] RttrmurLYIBZE1845-31-84 04:43:13916Omskqplf HlroqteACNAEE6769-88-77 04:43:77346Pctxipni UfiemwjQKIQHT0419-78-76 04:43:00* Test Item Value Reference Range Interpretation Comments CHD Risk (test code = CHD Risk) 6.18 1 3.90-5.80 [facility] AgmpylbJUKFGT4201-16-63 04:43:0033[facility] BzzbednILDJTW4866-22-78 04:43:69783Vqzbtlqa HermannCHEM UEAZI7988-97-42 00:30:0086[facility] HermannCHEM QDEUW3252-52-19 00:30:10312Mcdnzech HermannCHEM NFVTU2757-87-13 00:30:44593 [facility]annCHEM XUQRW9550-44-09 00:30:009.4[facility] HermannCHEM PANEL 2018-03-23 00:30:0026[facility] HermannCHEM DBBZY0467-98-06 00:30:16394Vwkrjmzn HermannCHEM XLWBA7682-73-25 00:30:0012[facility] HermannCHEM QLWVA9774-22-34 00:30:000.88[facility] HermannCHEM HARJA9540-12-04 00:30:0013.3[facility] CARDIAC RETJYEU9694-02-25 21:57:00<0.02[facility] HermannCHEM OAKQD2782-78-96 21:57:0084[facility] HermannCHEM TSDXU1029-85-24 21:57:0019[facility] HermannCHEM RLXWL4671-40-18 21:57:18908Ejpbzahh HermannCHEM IQMOO9042-45-26 21:57:0036 [facility] HermannCHEM LCEID2415-21-53 21:57:008.8[facility] HermannCHEM PANEL 2016-08-18 21:57:004.0[facility] HermannCHEM HXYZU7206-91-73 21:57:000.2[facility] HermannCHEM FCIDA9889-45-30 21:57:004.8[facility] HermannCHEM DBSQA3698-99-90 21:57:000.8[facility] HermannCHEM IEBEB5687-99-76 21:57:000.3[facility] HermannCHEM KZVVW4758-26-90 21:57:000.1[facility] XsrayqzFYNNMVBVJXYH0641-64-01 21:30:0016.6 [facility] YyhlvpqQNDCXFNDSQEF2764-98-28 21:30:000.92[facility] HermannELECTROLYTES 2016-08-18 21:30:008[facility] QzknqsoTEPCVDEEIZOG6036-66-56 21:30:13731Dtwrkhgy AwrjlmmYORMCQLSLIXW2723-60-12 21:30:76889Okzwrwwu SanhlqkWIDXOLFALXYX1135-35-12 21:30:003.6[facility] WxddfyhBMTDYPMEHJKT3849-75-68 21:30:009.1[facility] RTKTDAZYZYZV9166-84-28 21:30:0028[facility] UiysbmtOLKKHUKDALQA6925-41-45 21:30:00 114[facility] PgrrbygCBOXBQSZTXMA0479-96-55 21:30:0082[facility] HermannHEMATOLOGY 2016-08-18 21:30:005.32[facility] IdlekggFJMDXZSMEK8951-08-52 21:30:008.7[facility] TscylpeHLISRJVBTI7278-82-71 21:30:00* Test Item Value Reference Range Interpretation Comments MCH (test code = MCH) 27.0 pg 27.0-31.0 [facility] CdwgzwtKEOKKCPGSA7478-13-23 21:30:0080.3[facility] HermannHEMATOLOGY 2016-08-18 21:30:0042.7[facility] EbsagalQNIFJRICQE3846-58-57 21:30:0033.6[facility] UlsuhokHYMOTWLLGA2244-49-15 21:30:0014.3[facility] JcdrsqsJKQDVGVFGN9902-46-43 21:30:93781Nhjsqydo CcifrvwNQBBMMTJJJ1468-53-82 21:30:0014.9[facility] KATKFBAWMS6064-63-10 21:30:008.8[facility] YjkseheOBBWZTYDOU7079-60-21 21:30:000.2 [facility] IaualpdBKJZQKXYJX8065-25-90 21:30:000.7[facility] HermannHEMATOLOGY 2016-08-18 21:30:000.6[facility] PoryfqaXVYDOAJDIL6161-44-44 21:30:003.8[facility] HqzmxpxRCTRMFOCEO8372-97-31 21:30:004.0[facility] XytmkydDQTRBHUFLZ7794-78-59 21:30:000.1[facility] ImbgycjQQSMPCBHEV7272-09-80 21:30:0043.8[facility] BQGXPTFGBS6346-38-80 21:30:002.7[facility] EmmkwkkYFOJGFJOVS1728-86-66 21:30:00 46.3[facility] QufsgunOVMKGHJDQY6211-80-78 21:30:006.5[facility] HermannCHEMISTRY 2012-03-17 14:30:00<0.010[facility] LtqxxdwUMDLCAZPV2205-33-63 14:30:000.03 [facility] QgzjdkiMTFAOKIJR0596-54-70 07:04:000.05[facility] HermannCHEMISTRY 2012-03-17 07:04:00<0.010[facility] BfgzyvzRZEKVQDIK1539-83-79 21:05:77685Lwvqlydk UopwosuDJQIUFAID0487-74-87 21:05:000.06[facility] EimazfeVMNJQEQBK1546-77-17 21:05:0092[facility] DcvqrrtXIXJBIOIC1927-11-13 21:05:0016[facility] PSFEQPHVN5417-79-66 21:05:0047[facility] YsgxrpiZMAMVBIZS2007-31-68 21:05:004.3 [facility] DoeeknyLCEVAQBFR1055-21-68 21:05:008.2[facility] HermannCHEMISTRY 2012-03-16 21:05:000.4[facility] VefhfkeYENPJYCUA3147-25-52 21:05:83059Fryujgfr LtvdilyZDXNGHKGH6038-55-50 21:05:0028[facility] LoylzboJAVSNUBQR1153-25-65 21:05:009.9[facility] YfwgduoNGFJKKOLO1414-57-08 21:05:000.9[facility] XEITZWPTD5131-86-42 21:05:41126Mhpzmofa LcxwxbgRRQRYZHPW4046-84-22 21:05:09592 [facility] ZiolutvPEQDJJVIR1890-33-13 21:05:003.7[facility] HermannCHEMISTRY 2012-03-16 21:05:86711Rppdogzk UuctblsVAHPBZKOZ9741-20-99 21:05:0012[facility] TtlkzorUKUJRJJVL5635-05-12 21:05:001.1[facility] PcyedneDCRNVELDQ0898-20-15 21:05:003.9[facility] YcxnhlwPLFTEEATF1082-47-09 21:05:0013[facility] ROUANQJXO7097-22-10 21:05:0014.7[facility] NwpqchlASBLLXWEF5666-23-34 21:05:00 Negative (03/16/2012 16:05:00) [facility] BztqmukGVADQFEYK5422-30-80 21:05:00<0.4 [facility] MprbsnrZBSCVQTIB3140-82-91 21:05:00<0.5[facility] HermannHEMATOLOGY 2012-03-16 21:05:00* Test Item Value Reference Range Interpretation Comments PTT (test code = PTT) 33.7 s 22.9-35.8 N [facility] QvniglnROJSMLHQHD0380-45-70 21:05:00* Test Item Value Reference Range Interpretation Comments PT (test code = PT) 13.4 s 12.0-14.7 N [facility] VuacureKLABMFFJME3264-76-72 21:05:001.02[facility] HermannHEMATOLOGY 2012-03-16 21:05:0033.5[facility] DplkfgaFQIXJCYNUK6915-11-17 21:05:0014.4[facility] ZammmyoXKAOZLTJQI1135-50-94 21:05:81481Iuuogacs NyrvtdkTODWGVJHCW6650-28-18 21:05:009.7[facility] EqqvbwwSLDBJVQKXF5020-22-20 21:05:0040.8[facility] OXEATCOGXR9391-61-37 21:05:0081.9[facility] MsjtusxSPPSQHPUFX4332-71-87 21:05:00* Test Item Value Reference Range Interpretation Comments MCH (test code = MCH) 27.4 pg 27.0-31.0 N [facility] QwszbiwATNDHNQVKA5438-61-70 21:05:0010.2[facility] HermannHEMATOLOGY 2012-03-16 21:05:004.98[facility] BzvhwhjKHXOYNLERD1347-23-75 21:05:0013.7[facility] ZvzidxxSUEQUEUWXY6180-55-68 21:05:000.2[facility] UqqmbzxKEBEGQOAOX5765-25-15 21:05:000.1[facility] QfrgclnXYZQCTFICT5354-49-31 21:05:000.5[facility] KXVNFJQRGD3337-37-42 21:05:006.6[facility] YprvnebIWLNNTWNBW4708-97-56 21:05:002.9 [facility] RvtpwmfDXWMPIMDNB3909-15-45 21:05:000.4[facility] HermannHEMATOLOGY 2012-03-16 21:05:0064.3[facility] MftuyzjLCSAOFUHSQ5627-60-65 21:05:0028.9[facility] FrlzptfDAWWFVZZLA1711-22-82 21:05:004.3[facility] FolhbdcJPVIYUASMH2199-63-12 21:05:002.0[facility] QjhxvsoYAJXCNHPCD5513-23-10 21:05:00Occasional /HPF *ABN*(03/16/2012 16:05:00) [facility] PmboolkRWKVCMAIHK3295-70-87 21:05:00 Moderate /HPF (03/16/2012 16:05:00) [facility] XeqrywnQXOSYXWODY3556-38-25 21:05:003-5 /HPF *ABN*(03/16/2012 16:05:00) [facility]annURINALYSIS 2012-03-16 21:05:00Many /LPF *ABN*(03/16/2012 16:05:00) [facility] YHFIOFACPY7816-55-22 21:05:006-10 /HPF *ABN*(03/16/2012 16:05:00) [facility] DmlefszBWOMMQKIEE8049-68-85 21:05:00Performed (03/16/2012 16:05:00) [facility] UsjnqeeYQWYSHSRSW9633-71-25 21:05:000.2[facility] GjwtclpYKRAFVZSZI7702-98-56 21:05:00Negative (03/16/2012 16:05:00) [facility] KpzkbxxKKYFFPQBOG6704-77-95 21:05:00Negative *NA*(03/16/2012 16:05:00) [facility] HfppfevQTEHUCAUKR7173-08-85 21:05:00Small *ABN*(03/16/2012 16:05:00) [facility] AxzluotAMVZLJEBOF2811-00-43 21:05:00Trace *ABN*(03/16/2012 16:05:00) [facility] SopiycoOSOBFGJTIY6444-31-87 21:05:00Negative (03/16/2012 16:05:00) [facility] EgmklpfNQFQLLIJNN4326-97-97 21:05:00Yellow *NA*(03/16/2012 16:05:00) [facility] TdazmoyLFPSSLAZXD7201-56-60 21:05:00Slight Cloudy (03/16/2012 16:05:00) [facility]annURINALYSIS 2012-03-16 21:05:00Negative *NA*(03/16/2012 16:05:00) [facility] FHWOAZHKTI4178-22-21 21:05:00Negative (03/16/2012 16:05:00) [facility] XRSEPQMYBJ9076-61-25 21:05:00* Test Item Value Reference Range Interpretation Comments UA Spec Grav (test code = UA Spec Grav) 1.022 1 N [facility] KbfkswyPNMOEJXPOV3368-13-84 21:05:00* Test Item Value Reference Range Interpretation Comments UA pH (test code = UA pH) 6.0 1 5.0-8.0 N [facility] VzvkljtPXJREIWRDW4445-00-80 21:34:001[facility]annURINALYSIS 2011-11-29 21:34:00Yellow *NA*(11/29/2011 15:34:00) [facility] HermannURINALYSIS 2011-11-29 21:34:006.0[facility] FftsyrmQNDSAKOUKA6762-49-63 21:34:00Few /LPF *NA*(11/29/2011 15:34:00) [facility] FmqgtyjYEAZPTITZG2851-72-82 21:34:00Clear (11/29/2011 15:34:00) [facility]ChfcdnsOCSXZQRRAM3718-13-75 21:34:00Few /HPF *NA*(11/29/2011 15:34:00) [facility] HospitalBgfwcmpBDGHARAUEA3992-68-54 21:34:005 [facility] HospitalXxkfyfpECFUIOPPQT4823-16-89 21:34:001[facility]annURINALYSIS 2011-11-29 21:34:00Negative (11/29/2011 15:34:00) [facility] HermannURINALYSIS 2011-11-29 21:34:00Negative (11/29/2011 15:34:00) [facility] 2011-11-29 21:34:00Negative mg/dL *NA*(11/29/2011 15:34:00) [facility] HRGOYJQMXN0366-39-70 21:34:00Trace *ABN*(11/29/2011 15:34:00) [facility] SZNHZKWIWX7921-55-34 21:34:00Negative mg/dL *NA*(11/29/2011 15:34:00) [facility] HospitalPbnhsvjSYRHWHQSDU0768-47-25 21:34:00Many /LPF *ABN*(11/29/2011 15:34:00) [facility] HospitalDfsyocsSLMUSTXZIR4738-92-33 21:34:0070 mg/dL *ABN*(11/29/2011 15:34:00) [facility] HospitalRbfbrfsXGQBKASBTF2281-02-82 21:34:001.013[facility]annURINALYSIS 2011-11-29 21:34:00Negative *NA*(11/29/2011 15:34:00) [facility]annCHEMISTRY 2011-11-29 11:50:000.5[facility] YgvtmsvUMNRZKAGG4348-09-60 11:50:000.6[facility] LrvdugiNUALNHVGN6505-45-98 11:50:00<0.02[facility] QajfkuyHIJPBSRDH3806-03-55 11:50:0078[facility] AsiwrvcFSTIROSLS7926-00-85 06:15:00<0.6[facility] BVCVHCIIF7993-40-40 06:15:00<0.5[facility] PyrzazdXJSRABVKV9939-03-77 06:15:0083 [facility] ItbbgcjGPJQOFXCL3955-72-83 06:15:00<0.02[facility] HermannCHEMISTRY 2011-11-28 23:30:00<0.02[facility] TcyqhwxVEYSIPQXI1628-85-24 23:30:89092Oarrzpzs ZtkulabDZAVMGLBT1448-34-04 23:30:0012.3[facility] UucytrpRTKIUOVTL9478-30-94 23:30:0014[facility] OdfzsrlBYEFKVIOG7901-49-74 23:30:0024[facility] AMJBKFTTS4306-58-69 23:30:008.4[facility] FulvzivSTOLFIFWN7110-22-50 23:30:37300 [facility] TgugfazUVERAFKID5142-15-01 23:30:83298Thkxrwcc HermannCHEMISTRY 2011-11-28 23:30:004.3[facility] SfoitrqUZFPAFTRN0075-61-58 23:30:0015[facility] AsynoxqAIOUVFFFB3143-29-14 23:30:001.1[facility] NfromtqOZJJIVICG7508-25-00 23:30:46944Qgrfjepk VrbhrllIDHIGUADD0101-84-76 23:30:001.0[facility] JSGRVYCEP8797-47-91 23:30:003.5[facility] WrhioieSYVOBITZH9520-39-63 23:30:0016 [facility] YjxuhclPOEMKAUHY1567-16-07 23:30:000.2[facility] HermannCHEMISTRY 2011-11-28 23:30:0098[facility] QhyggehXXWHPDUDL2261-04-74 23:30:0032[facility] BwfeayrZQIXOTRLV1005-11-58 23:30:003.4[facility] UzvyrmlYAEQQRGWV2675-18-86 23:30:006.9[facility] AthkyvfGAHHPWUXY5006-75-84 23:30:000.5[facility] SVQSSRVRC0695-27-99 23:30:000.5[facility] DwyjlegHNPUIQGJT8555-34-70 21:20:00< 0.010[facility] WdfuditCFWBAMMIZO6102-99-31 21:20:000.1[facility] HermannHEMATOLOGY 2011-11-28 21:20:000.9[facility] NahekucJOEYYVUTGX2982-32-13 21:20:000.3[facility] AljiehcFDEAGFVMPN3030-06-77 21:20:000.2[facility] IhbphzvADRARSSRWG8306-51-02 21:20:004.8[facility] MptxdegFLBPXAEXJH6325-01-12 21:20:002.1[facility] UJHHMWASKU8447-38-80 21:20:003.1[facility] UxnoocxNYIWECGASL6424-18-00 21:20:004.2 [facility] QmxmpwkMZCXOFKDNC5316-49-46 21:20:0063.7[facility] HermannHEMATOLOGY 2011-11-28 21:20:0028.1[facility] YjzyypzGLOTHNZULY6078-40-02 21:20:001+ *ABN*(11/28/2011 15:20:00) [facility] XhhcuumGZQWBXQFFS7262-97-63 21:20:00Normal (11/28/2011 15:20:00) [facility] BajlbqgYDHBWKNELP1648-55-08 21:20:0010.0[facility] PxxzjgwBJDYBUJEWN1754-45-17 21:20:0013.8[facility] AwvpmteXCXLAXHRBF0987-79-01 21:20:005.04[facility] DjbknwpPRJHNCEGTZ6502-07-76 21:20:007.5[facility] [place] ITFLCZLRWR7866-90-74 21:20:0014.7[facility] FjtlbbaTOHLKTEYIK2010-59-89 21:20:00 33.3[facility] DsozgcgQIQADMCLZI3732-68-31 21:20:92312Oevwyrqn HermannHEMATOLOGY 2011-11-28 21:20:0082.0[facility] BbbbubkKXXXTOOZLM0672-13-06 21:20:0041.4[facility] FpemjjsVMLMBAAFIC4109-84-21 21:20:00* Test Item Value Reference Range Interpretation Comments MCH (test code = MCH) 27.3 pg 27.0-31.0 N [facility]ApjvictYHDACUSAAW1359-47-40 21:20:000.95[facility]annHEMATOLOGY 2011-11-28 21:20:00* Test Item Value Reference Range Interpretation Comments PTT (test code = PTT) 33.7 s 22.9-35.8 N [facility] HospitalLdcsnvoYBOVYNWMQZ3528-05-83 21:20:00* Test Item Value Reference Range Interpretation Comments PT (test code = PT) 12.7 s 12.0-14.7 N [facility] HospitalHrireajILDXXCAXF9482-71-51 21:03:00Negative (06/22/2011 16:03:00) ?? [facility] HospitalVebdrirBKHFGNFDFS4397-62-37 21:03:00Few /LPF (06/22/2011 16:03:00) ?? [facility] HospitalNtwrmczZFCKJXRKDP9682-55-19 21:03:00Few /HPF *ABN*(06/22/2011 16:03:00) ??[facility] HospitalKcbhrbzPHLALCWHYV5666-09-64 21:03:00Few /HPF (06/22/2011 16:03:00) ?? [facility] HospitalIapqbleVGVVNZGETN1048-60-89 21:03:00Small *ABN*(06/22/2011 16:03:00) ?? [facility] HospitalGajjyrbDAJAHZWUVH5913-70-25 21:03:00Many /LPF *ABN*(06/22/2011 16:03:00) ??[facility] HospitalTodcuifFZZYRWNTGT4390-50-79 21:03:00Performed (06/22/2011 16:03:00) ??[facility] RjvmwlnIBODXJNYFG8112-58-21 21:03:000-2 /HPF (06/22/2011 16:03:00) ??[facility] AfhwiwzTOTVPEPAAB1314-96-35 21:03:003-5 /HPF (06/22/2011 16:03:00) ??[facility] HospitalWrskybpNBILWKSSLF0958-84-31 21:03:001.0[facility] BHURFNINCH8736-26-67 21:03:00Negative (06/22/2011 16:03:00) ??[facility] [place] RAFAOKBOFM9874-67-88 21:03:00Cloudy *ABN*(06/22/2011 16:03:00) ??[facility] TxkvinnLSGIJJHYDA9262-95-37 21:03:00* Test Item Value Reference Range Interpretation Comments UA Spec Grav (test code = UA Spec Grav) 1.015 1 N [facility] HospitalEopbanxSUVWJCXXNE6458-23-43 21:03:00Negative *NA*(06/22/2011 16:03:00) ??[facility] HospitalSnatpzpYEHVRLIKPT4220-12-31 21:03:00Negative *NA*(06/22/2011 16:03:00) ??[facility] HospitalFehaljgDNCSZBOWDJ9036-30-31 21:03:00Trace *ABN*(06/22/2011 16:03:00) ??[facility] HospitalTxngqaoWTVFAVBGYU8116-22-34 21:03:00Negative (06/22/2011 16:03:00) ?? XtnyultISNQBMRZAQ8288-09-00 21:03:00* Test Item Value Reference Range Interpretation Comments UA pH (test code = UA pH) 7.0 1 5.0-8.0 N [facility] FhvsmioDIRYBLZLRQ1725-42-73 21:03:00Negative (06/22/2011 16:03:00) ?? [facility] HospitalAlvnouyMWRGNIPMSY9153-83-53 21:03:00Yellow *NA*(06/22/2011 16:03:00) ?? [facility] ExskwhrEOIECWBII8510-04-08 20:15:000.8[facility]annHEMATOLOGY 2011-06-22 20:15:00* Test Item Value Reference Range Interpretation Comments PT (test code = PT) 13.5 s 12.0-14.7 N [facility] FgwctmlKGMDHAKSVY0692-49-84 20:15:00* Test Item Value Reference Range Interpretation Comments INR (test code = INR) 1.03 1 0.85-1.17 N [facility] CinryaaPCOLBSVCIB2685-19-01 20:15:00* Test Item Value Reference Range Interpretation Comments PTT (test code = PTT) 35.4 s 22.9-35.8 N [facility] HuffmvvHTNRNZEDN1218-42-44 19:49:002.7[facility] HermannCHEMISTRY 2011-06-22 19:49:002.1[facility] ZwioueaAKLNVQEZK1101-76-66 19:49:000.8[facility] PnatlpoQYNKKBCIT3453-47-70 19:49:008.0[facility] RyewmpaEXXTNJEGI1050-36-65 19:49:81871.0[facility] SrloityMGMDCTNTA5023-45-84 19:49:59093.0[facility] ZQQURTMYV1934-64-81 19:49:56354.0[facility] FhmeuleLBRSSNDDT8939-59-37 19:49:003.5 [facility] CpigxbgDRKTLJSAN8403-71-49 19:49:0027.0[facility] HermannCHEMISTRY 2011-06-22 19:49:009.0[facility] OzzaaoxXHJCMHDZG3262-22-10 19:49:0011.5[facility] AshfaugLODCXFEED7493-23-87 19:49:0078.0[facility] CwllyvaHBMXLLYBY8213-66-92 19:49:008.0[facility] TcsncgwVLNKZZUBF3302-85-17 19:49:0040.0[facility] [place] GLGRQZNVI7565-87-89 19:49:003.8[facility] TemxnvpHJSNVXQTD3697-08-22 19:49:000.1 [facility] KgezzskPRMTIEQHH7692-84-55 19:49:000.4[facility]annCHEMISTRY 2011-06-22 19:49:26751.0[facility] XlejvsqOOGWKXSKX6178-91-93 19:49:00* Test Item Value Reference Range Interpretation Comments A/G Ratio (test code = A/G Ratio) 0.9 1 0.7-1.6 N [facility] UpzolutBYDJOVWKA0699-77-19 19:49:004.2[facility] HermannCHEMISTRY 2011-06-22 19:49:0014.0[facility] WopnouuNTEZEBCCU4450-16-96 19:49:000.3[facility] EzveibkJAPZKTLPYV4526-05-51 19:49:0014.0[facility] AafsffaCZWHCDVORW8891-90-61 19:49:0033.9[facility] EgxsaloMLXGOLLYCR2604-65-61 19:49:009.5[facility] [place] FOLTPBIKJK9042-33-88 19:49:00* Test Item Value Reference Range Interpretation Comments MCH (test code = MCH) 28.0 pg 27.0-31.0 N [facility] RuqtzgvKHPMHPXKZW0093-95-22 19:49:0082.5[facility]annHEMATOLOGY 2011-06-22 19:49:0038.7[facility] NvpktlcHPGIDXAGBF3386-50-00 19:49:0013.1[facility] SelketzLERUFYFIYA8582-50-35 19:49:24868.0[facility] AtymebtAQAHFCVMXY0459-43-48 19:49:008.1[facility] LzsyrraOMTUKHGIPF1799-87-03 19:49:004.69[facility] WCRENXNIVL3473-44-54 19:49:000.7[facility] YbgjhgfMCKNMXBBOD3127-62-43 19:49:000.6 [facility] IlogrucRUKCVJXVFN8158-67-09 19:49:001.7[facility] HermannHEMATOLOGY 2011-06-22 19:49:000.1[facility] AirxmenYQRAWROAVP1171-66-95 19:49:007.0[facility] RryenjuMLZABGKBAB4465-87-07 19:49:001.3[facility] UkbhrkvTZPKIAISJA0054-73-30 19:49:005.6[facility] DpilspsGLAVUDAEWW0472-89-09 19:49:0021.4[facility] [place] VSDZASEDIQ8659-40-37 19:49:0069.6[facility] PvfwwiaDVOIRCLDAV0088-38-80 19:49:00 0.1[facility]
== END 2020-06-09 09:51 | disposition home or self-care (01) ==
LOC: FSED 09:00
DX: J20.9 Acute bronchitis, unspecified (principal); R06.00 Dyspnea, unspecified; R05 Cough; I10 Essential (primary) hypertension; E11.9 Type 2 diabetes mellitus without complications; E78.5 Hyperlipidemia, unspecified; K21.9 Gastro-esophageal reflux disease without esophagitis; Z86.718 Personal history of other venous thrombosis and embolism; E66.01 Morbid (severe) obesity due to excess calories
CPT/HCPCS: 71045; 99283

== ENCOUNTER 2020-08-01 14:17 | Observation (INO) | payer MEDICARE ==
[~2020-08-01] VITALS: Ht 162.6 cm; Wt 135.6 kg
[~2020-08-01 14:17] MED LIST: ATORVASTATIN CA10 MG PO; CEFDINIR300 MG PO; LISINOPRIL-HCT1 EACH; METFORMIN HCL500 MG PO; METOPROLOL TART50 MG PO; NORVASC10 MG PO; PANTOPRAZOLE SO40 MG PO; PREDNISONE20 MG PO; SINEMET 10-1001 EACH PO; TESSALON PERLE100 MG PO
[2020-08-01] MEDS ORDERED: ASPIRIN 325 MG TAB PO ONE (15:30)
[2020-08-01] MEDS ORDERED: FAMOTIDINE 20 MG/2 ML VIAL IV ONE ×2 (15:30→15:39)
[2020-08-01] MEDS ORDERED: ONDANSETRON HCL INJ 2MG/ML 2ML 2 MG/ML VIAL IV PRN ×2 (15:30)
[2020-08-01] MEDS ORDERED: NITROGLYCERIN 2% OINT 1 GM PKT TOP ONE (15:30)
[2020-08-01] MEDS ORDERED: ACETAMINOPHEN 325 MG TAB PO ONE (15:30)
[2020-08-01] MEDS ORDERED: ACETAMINOPHEN 325 MG TAB ONE (15:38)
[2020-08-01] MEDS ORDERED: ONDANSETRON HCL INJ 2MG/ML 2ML 2 MG/ML VIAL ONE (15:38)
[2020-08-01] MEDS ORDERED: ASPIRIN 325 MG TAB ONE (15:38)
[2020-08-01] MEDS ORDERED: NITROGLYCERIN 2% OINT 1 GM PKT ONE (15:39)
[2020-08-01] MEDS: FAMOTIDINE 20 MG TAB PO SCH (15:46)
[2020-08-01 17:29] VITALS: BP 118/81
[2020-08-01] MEDS ORDERED: NITROGLYCERIN 2% OINT 1 GM PKT TOP SCH (18:00)
[2020-08-01 19:46] LABS: CREATINE KINASE MB 0.9 ng/mL (0-5.0)
[2020-08-01 20:00] VITALS: BP 99/64
[2020-08-01] MEDS: SIMVASTATIN 40 MG TAB PO SCH (21:45)
[2020-08-01] MEDS ORDERED: MORPHINE SULFATE INJ 4 MG/ML INJ 1ML IV PRN (23:45)
[2020-08-01] MEDS ORDERED: NITROGLYCERIN 0.4 MG SUBL SL PRN (23:45)
[2020-08-01] MEDS ORDERED: DEXTROSE 50% SYRINGE 50 ML IV PRN (23:45)
[2020-08-02] VITALS (7 sets, daily range): BP systolic 104–129; BP diastolic 55–80
[2020-08-02 07:08] LABS: CHOL/HDL RATIO 4.7 (3.0-3.6)
[2020-08-02] MEDS: INSULIN REGULAR, HUMAN 100 UNIT/1 ML 3ML VIAL SQ SCH ×4 (07:30→21:47)
[2020-08-02 07:32] LABS: CREATINE KINASE MB 0.9 ng/mL (0-5.0)
[2020-08-02] MEDS: ASPIRIN 325 MG TAB EC PO SCH (09:51)
[2020-08-02] MEDS: FAMOTIDINE 20 MG TAB PO SCH ×2 (09:51→17:31)
[2020-08-02] MEDS: VALSARTAN 160 MG TAB PO SCH (09:52)
[2020-08-02] MEDS: HYDROMORPHONE 1MG/1ML INJ IV PRN ×2 (10:00→18:14)
[2020-08-02] MEDS ORDERED: ONDANSETRON HCL 4 MG ORAL DISINTEGRATING TAB PO PRN (14:00)
[2020-08-02] MEDS ORDERED: REGADENOSON 0.4 MG/5 ML SYR IV ONE (16:02)
[2020-08-02] MEDS: SIMVASTATIN 40 MG TAB PO SCH (20:35)
[2020-08-03] VITALS (8 sets, daily range): BP systolic 110–152; BP diastolic 56–90
[2020-08-03] MEDS: HYDROMORPHONE 1MG/1ML INJ IV PRN ×2 (07:08→14:14)
[2020-08-03] MEDS: INSULIN REGULAR, HUMAN 100 UNIT/1 ML 3ML VIAL SQ SCH ×4 (07:30→21:26)
[2020-08-03] MEDS: FAMOTIDINE 20 MG TAB PO SCH ×2 (08:52→16:54)
[2020-08-03] MEDS: ASPIRIN 325 MG TAB EC PO SCH (08:52)
[2020-08-03] MEDS: VALSARTAN 160 MG TAB PO SCH (08:53)
[2020-08-03] MEDS ORDERED: CARVEDILOL25 MG (08:59)
[2020-08-03] MEDS ORDERED: AMLODIPINE BESYL5 MG PO (09:00)
[2020-08-03] MEDS ORDERED: WELLBUTRIN SR150 MG (09:02)
[2020-08-03] MEDS ORDERED: LEXAPRO20 MG PO (09:04)
[2020-08-03] MEDS ORDERED: LISINOPRIL10 MG PO (09:05)
[2020-08-03] MEDS ORDERED: AMITRIPTYLINE H10 MG PO (09:05)
[2020-08-03] MEDS ORDERED: HYDROCHLOROTHIA25 MG (09:06)
[2020-08-03 09:56] LABS: HEMOGLOBIN 12.6 g/dL (12.0-16.0); MEAN CORPUSCULAR HEMOGLOBIN 26.7 pg (28-32); MEAN CORPUSCULAR HGB CONC 31.5 g/dL (31-35); MEAN CORPUSCULAR VOLUME 84.7 fL (81-99); PLATELET COUNT 251 x10e3/uL (140-360); RED BLOOD COUNT 4.72 x10e6/uL (3.6-5.1); RED CELL DISTRIBUTION WIDTH 14.3 % (11.7-14.4)
[2020-08-03 10:26] LABS: BLOOD UREA NITROGEN 16 mg/dL (7-26); BUN/CREATININE RATIO 20 (6-25); CARBON DIOXIDE 28 mmol/L (22-29); CHLORIDE 102 mmol/L (98-107); CREATININE, SERUM 0.82 mg/dL (0.57-1.11); EST GLOMERULAR FILTRATION RATE > 60 ML/MIN (60-); GLUCOSE 166 mg/dL (74-118); SODIUM 138 mmol/L (136-145)
[2020-08-03 10:59] LABS: EOSINOPHILS % (MANUAL) 6 % (0-7); LYMPHOCYTES % (MANUAL) 29 % (19-48); MONOCYTES % (MANUAL) 6 % (3.4-9.0); NEUTROPHILS % (MANUAL) 59 % (40-74); PLATELET MORPHOLOGY COMMENT NORMAL; RBC MORPHOLOGY COMMENT NORMAL
[2020-08-03 11:00] LABS: PLATELET ESTIMATE ADEQUATE
[2020-08-03] MEDS: SIMVASTATIN 40 MG TAB PO SCH (21:26)
[2020-08-04] VITALS: BP 127/83
[2020-08-04] MEDS: HYDROMORPHONE 1MG/1ML INJ IV PRN ×2 (03:42→10:46)
[2020-08-04 04:00] VITALS: BP 137/79
[2020-08-04] MEDS: INSULIN REGULAR, HUMAN 100 UNIT/1 ML 3ML VIAL SQ SCH ×3 (07:30→16:30)
[2020-08-04 08:07] VITALS: BP 146/95
[2020-08-04 08:36] VITALS: BP 140/95
[2020-08-04] MEDS: FAMOTIDINE 20 MG TAB PO SCH ×2 (10:36→15:40)
[2020-08-04] MEDS: VALSARTAN 160 MG TAB PO SCH (10:37)
[2020-08-04 11:04] LABS: CHOL/HDL RATIO 4.8 (3.0-3.6)
[2020-08-04 11:24] LABS: THYROID STIMULATING HORMONE 2.237 uIU/mL (0.350-4.940)
[2020-08-04 11:29] LABS: CREATINE KINASE MB 0.9 ng/mL (0-5.0)
[2020-08-04 11:59] VITALS: BP 148/88
[2020-08-04] MEDS ORDERED: LORAZEPAM INJ 2 MG/ML VIAL IV ONE (12:00)
[2020-08-04] MEDS ORDERED: CARVEDILOL 12.5 MG TAB PO SCH (12:00)
[2020-08-04] MEDS ORDERED: CARVEDILOL 3.125 MG TAB PO SCH (12:15)
[2020-08-04] MEDS ORDERED: ATORVASTATIN 40 MG TAB PO SCH (21:00)
[2020-08-04] MEDS ORDERED: AMLODIPINE BESYLATE 5 MG TAB PO SCH (21:00)
[2020-08-05] MEDS ORDERED: CLOPIDOGREL BISULFATE 75 MG TAB PO SCH (09:00)
== END 2020-08-04 17:30 | disposition home or self-care (01) ==
LOC: FSED 14:49 → ERHOLD 15:30 → MED/SURG 17:29
PROVIDERS: ADMIT Internal Medicine; ATTEND Internal Medicine
DX: I48.0 Paroxysmal atrial fibrillation (principal); R07.89 Other chest pain; E11.9 Type 2 diabetes mellitus without complications; I10 Essential (primary) hypertension; Z86.73 Personal history of transient ischemic attack (TIA), and cerebral infarction without residual deficits; E78.5 Hyperlipidemia, unspecified; E66.01 Morbid (severe) obesity due to excess calories; Z68.43 Body mass index [BMI] 50.0-59.9, adult; R33.9 Retention of urine, unspecified; G47.30 Sleep apnea, unspecified; R94.31 Abnormal electrocardiogram [ECG] [EKG]; Z11.59 Encounter for screening for other viral diseases; E11.65 Type 2 diabetes mellitus with hyperglycemia; G89.29 Other chronic pain; M54.9 Dorsalgia, unspecified; Z79.01 Long term (current) use of anticoagulants
CPT/HCPCS: 36415 ×4; 70450; 70551; 71045; 78452; 80048; 80053; 80061 ×2; 82550 ×3; 82553 ×3; 82948; 83036; 83090; 84443; 84484 ×3; 85007; 85027; 85597; 85598; 85613; 85730; 85732; 86039; 86146 ×3; 86147; 86148; 86849; 93005; 93017; 93306; 96372 ×2; 97116; 97162; 99284; A9502; G0378 ×4; J1170 ×3; J2060; J2785; U0002; J2405